=== PATIENT | male | born 1950 | race Caucasian/White ===

== ENCOUNTER 2020-09-04 08:12 | Outpatient (REF) | payer MEDICARE, SELFPAY ==
[2020-09-04 08:41] LABS: Hematocrit 41.1 % (42-52); Hemoglobin 13.8 g/dl (14.0-18.0); Mean Corpuscular HGB Conc 33.6 g/dl (31.0-36.0); Mean Corpuscular Hemoglobin 30.2 pg (27.0-33.0); Mean Corpuscular Volume 89.9 fL (80-98); Mean Platelet Volume 10.4 fL (9.4-12.4); Platelet Count 230 X10*3/uL (160-400); Red Blood Count 4.57 X10*6/uL (4.60-5.80); Red Cell Distribution Width 12.4 % (11.0-16.0); White Blood Count 7.4 X10*3/uL (4.8-10.8)
[2020-09-04 09:04] LABS: Alanine Aminotransferase 11 U/L (0-40); Alkaline Phosphatase 82 U/L (39-117); Anion Gap 14 (12-20); Aspartate Amino Transferase 14 U/L (5-37); Blood Urea Nitrogen 16 mg/dL (9-16); Calcium 9.4 mg/dL (8.4-10.2); Carbon Dioxide 27 mmol/L (22-29); Chloride 104 mmol/L (96-108); Estimated Glomerular Filt Rate > 60; Glucose Random 97 mg/dL (60-115); Potassium 4.5 mmol/L (3.3-5.1); Sodium 140 mmol/L (135-145); Total Protein 6.8 g/dL (6.5-8.0)
== END 2020-09-04 08:13 | disposition home or self-care (01) ==
LOC: HO.MMNH1L 08:12
PROVIDERS: Visit Provider Family Medicine
DX: I10 Essential (primary) hypertension (principal)
CPT/HCPCS: 36415; 80053; 85027

== ENCOUNTER 2020-09-07 06:41 | Outpatient (REF) | payer OTHER, SELFPAY ==
[2020-09-07 07:06] LABS: Hemoglobin 13.9 g/dl (14.0-18.0); Mean Corpuscular HGB Conc 33.1 g/dl (31.0-36.0); Mean Corpuscular Hemoglobin 30.2 pg (27.0-33.0); Mean Corpuscular Volume 91.1 fL (80-98); Mean Platelet Volume 10.6 fL (9.4-12.4); Platelet Count 261 X10*3/uL (160-400); Red Blood Count 4.61 X10*6/uL (4.60-5.80); Red Cell Distribution Width 12.5 % (11.0-16.0); White Blood Count 7.5 X10*3/uL (4.8-10.8)
[2020-09-07 07:28] LABS: Anion Gap 13 (12-20); Blood Urea Nitrogen 33 mg/dL (9-16); Calcium 9.2 mg/dL (8.4-10.2); Carbon Dioxide 29 mmol/L (22-29); Chloride 104 mmol/L (96-108); Estimated Glomerular Filt Rate > 60; Glucose Random 92 mg/dL (60-115); Potassium 4.6 mmol/L (3.3-5.1); Sodium 141 mmol/L (135-145)
== END 2020-09-07 06:42 | disposition home or self-care (01) ==
LOC: HO.MMNH1L 06:41
PROVIDERS: Visit Provider Family Medicine
DX: I10 Essential (primary) hypertension (principal)
CPT/HCPCS: 36415; 80048; 85027

== ENCOUNTER 2020-09-14 00:39 | Outpatient (REF) | payer OTHER, MEDICARE, SELFPAY ==
[2020-09-14 07:48] LABS: Hematocrit 41.2 % (42-52); Hemoglobin 13.5 g/dl (14.0-18.0); Mean Corpuscular HGB Conc 32.8 g/dl (31.0-36.0); Mean Corpuscular Hemoglobin 30.1 pg (27.0-33.0); Mean Platelet Volume 11.1 fL (9.4-12.4); Platelet Count 264 X10*3/uL (160-400); Red Blood Count 4.48 X10*6/uL (4.60-5.80); Red Cell Distribution Width 12.7 % (11.0-16.0); White Blood Count 7.2 X10*3/uL (4.8-10.8)
[2020-09-14 08:04] LABS: Anion Gap 16 (12-20); Blood Urea Nitrogen 36 mg/dL (9-16); Calcium 8.9 mg/dL (8.4-10.2); Carbon Dioxide 27 mmol/L (22-29); Chloride 104 mmol/L (96-108); Estimated Glomerular Filt Rate > 60; Glucose Random 79 mg/dL (60-115); Potassium 4.5 mmol/L (3.3-5.1); Sodium 142 mmol/L (135-145)
== END 2020-09-14 00:40 | disposition home or self-care (01) ==
LOC: HO.MMNH1L 00:39
PROVIDERS: Visit Provider Family Medicine
DX: I10 Essential (primary) hypertension (principal)
CPT/HCPCS: 36415; 80048; 85027

== ENCOUNTER 2020-09-21 10:25 | Outpatient (REF) | payer MEDICARE, SELFPAY ==
[2020-09-21 08:01] LABS: Hemoglobin 13.2 g/dl (14.0-18.0); Mean Corpuscular Hemoglobin 30.1 pg (27.0-33.0); Mean Corpuscular Volume 91.3 fL (80-98); Mean Platelet Volume 11.3 fL (9.4-12.4); Platelet Count 248 X10*3/uL (160-400); Red Blood Count 4.38 X10*6/uL (4.60-5.80); Red Cell Distribution Width 12.4 % (11.0-16.0); White Blood Count 8.3 X10*3/uL (4.8-10.8)
[2020-09-21 08:32] LABS: Anion Gap 16 (12-20); Blood Urea Nitrogen 30 mg/dL (9-16); Carbon Dioxide 24 mmol/L (22-29); Chloride 108 mmol/L (96-108); Estimated Glomerular Filt Rate > 60; Glucose Random 70 mg/dL (60-115); Potassium 4.7 mmol/L (3.3-5.1); Sodium 143 mmol/L (135-145)
== END 2020-09-21 10:26 | disposition home or self-care (01) ==
LOC: HO.MMNH1L 10:25
PROVIDERS: Visit Provider Family Medicine
DX: I10 Essential (primary) hypertension (principal)
CPT/HCPCS: 36415; 80048; 85027

== ENCOUNTER 2020-09-28 00:31 | Outpatient (REF) | payer MEDICARE, SELFPAY ==
[2020-09-28 08:08] LABS: Hematocrit 38.9 % (42-52); Hemoglobin 12.7 g/dl (14.0-18.0); Mean Corpuscular HGB Conc 32.6 g/dl (31.0-36.0); Mean Corpuscular Hemoglobin 29.7 pg (27.0-33.0); Mean Corpuscular Volume 91.1 fL (80-98); Mean Platelet Volume 11.3 fL (9.4-12.4); Platelet Count 204 X10*3/uL (160-400); Red Blood Count 4.27 X10*6/uL (4.60-5.80); Red Cell Distribution Width 12.6 % (11.0-16.0); White Blood Count 8.2 X10*3/uL (4.8-10.8)
[2020-09-28 08:37] LABS: Anion Gap 14 (12-20); Blood Urea Nitrogen 31 mg/dL (9-16); Carbon Dioxide 24 mmol/L (22-29); Chloride 111 mmol/L (96-108); Estimated Glomerular Filt Rate > 60; Glucose Random 82 mg/dL (60-115); Potassium 4.7 mmol/L (3.3-5.1); Sodium 144 mmol/L (135-145)
== END 2020-09-28 00:32 | disposition home or self-care (01) ==
LOC: HO.MMNH1L 00:31
PROVIDERS: Visit Provider Family Medicine
DX: I10 Essential (primary) hypertension (principal)
CPT/HCPCS: 36415; 80048; 85027

== ENCOUNTER 2020-10-05 01:05 | Outpatient (REF) | payer MEDICARE, SELFPAY | END 2020-10-05 01:06 | disposition home or self-care (01) | LOC: HO.MMNH1L 01:05 | PROVIDERS: Visit Provider Family Medicine | DX: Z13.89 Encounter for screening for other disorder (principal) ==

== ENCOUNTER 2020-10-14 08:18 | Outpatient (REF) | payer MEDICARE, SELFPAY ==
[2020-10-14 09:10] LABS: Hematocrit 36.7 % (42-52); Mean Corpuscular HGB Conc 32.7 g/dl (31.0-36.0); Mean Corpuscular Hemoglobin 29.6 pg (27.0-33.0); Mean Corpuscular Volume 90.6 fL (80-98); Mean Platelet Volume 10.8 fL (9.4-12.4); Platelet Count 271 X10*3/uL (160-400); Red Blood Count 4.05 X10*6/uL (4.60-5.80); Red Cell Distribution Width 12.8 % (11.0-16.0); White Blood Count 8.1 X10*3/uL (4.8-10.8)
[2020-10-14 09:32] LABS: Alanine Aminotransferase 48 U/L (0-40); Albumin Level 3.2 g/dL (3.5-5.0); Alkaline Phosphatase 123 U/L (39-117); Anion Gap 13 (12-20); Aspartate Amino Transferase 33 U/L (5-37); Bilirubin Total 0.7 mg/dL (0.0-1.0); Blood Urea Nitrogen 12 mg/dL (9-16); Calcium 8.6 mg/dL (8.4-10.2); Carbon Dioxide 30 mmol/L (22-29); Chloride 104 mmol/L (96-108); Estimated Glomerular Filt Rate > 60; Glucose Random 106 mg/dL (60-115); Potassium 4.1 mmol/L (3.3-5.1); Sodium 143 mmol/L (135-145); Total Protein 5.9 g/dL (6.5-8.0)
== END 2020-10-14 08:19 | disposition home or self-care (01) ==
LOC: HO.MMNH1L 08:18
PROVIDERS: Visit Provider Family Medicine
DX: A41.9 Sepsis, unspecified organism (principal); L89.159 Pressure ulcer of sacral region, unspecified stage
CPT/HCPCS: 36415; 80053; 85027

== ENCOUNTER 2020-10-19 00:51 | Outpatient (REF) | payer MEDICARE, SELFPAY ==
[2020-10-19 07:46] LABS: Hemoglobin 12.5 g/dl (14.0-18.0); Mean Corpuscular HGB Conc 32.9 g/dl (31.0-36.0); Mean Corpuscular Volume 91.1 fL (80-98); Mean Platelet Volume 10.4 fL (9.4-12.4); Platelet Count 333 X10*3/uL (160-400); Red Blood Count 4.17 X10*6/uL (4.60-5.80); Red Cell Distribution Width 13.2 % (11.0-16.0); White Blood Count 12.5 X10*3/uL (4.8-10.8)
[2020-10-19 08:27] LABS: Anion Gap 12 (12-20); Blood Urea Nitrogen 22 mg/dL (9-16); Calcium 8.5 mg/dL (8.4-10.2); Carbon Dioxide 29 mmol/L (22-29); Chloride 101 mmol/L (96-108); Estimated Glomerular Filt Rate > 60; Glucose Random 72 mg/dL (60-115); Potassium 4.1 mmol/L (3.3-5.1); Sodium 138 mmol/L (135-145)
== END 2020-10-19 00:52 | disposition home or self-care (01) ==
LOC: HO.MMNH1L 00:51
PROVIDERS: Visit Provider Family Medicine
DX: A41.9 Sepsis, unspecified organism (principal); L89.159 Pressure ulcer of sacral region, unspecified stage
CPT/HCPCS: 36415; 80048; 85027

== ENCOUNTER 2020-10-26 00:27 | Outpatient (REF) | payer MEDICARE, SELFPAY ==
[2020-10-26 07:05] LABS: Hematocrit 38.5 % (42-52); Hemoglobin 12.5 g/dl (14.0-18.0); Mean Corpuscular HGB Conc 32.5 g/dl (31.0-36.0); Mean Corpuscular Hemoglobin 29.9 pg (27.0-33.0); Mean Corpuscular Volume 92.1 fL (80-98); Mean Platelet Volume 10.7 fL (9.4-12.4); Platelet Count 318 X10*3/uL (160-400); Red Blood Count 4.18 X10*6/uL (4.60-5.80); Red Cell Distribution Width 13.9 % (11.0-16.0); White Blood Count 10.7 X10*3/uL (4.8-10.8)
[2020-10-26 07:47] LABS: Blood Urea Nitrogen 60 mg/dL (9-16); Estimated Glomerular Filt Rate 33; Glucose Random 72 mg/dL (60-115)
[2020-10-26 08:01] LABS: Anion Gap 21 (12-20); Carbon Dioxide 21 mmol/L (22-29); Chloride 104 mmol/L (96-108); Potassium 5.5 mmol/L (3.3-5.1); Sodium 140 mmol/L (135-145)
== END 2020-10-26 00:28 | disposition home or self-care (01) ==
LOC: HO.MMNH1L 00:27
PROVIDERS: Visit Provider Family Medicine
DX: L89.159 Pressure ulcer of sacral region, unspecified stage (principal); A41.9 Sepsis, unspecified organism
CPT/HCPCS: 36415; 80048; 85027

== ENCOUNTER 2020-11-02 07:04 | Outpatient (REF) | payer MEDICARE, SELFPAY ==
[2020-11-02 07:09] LABS: Hematocrit 40.6 % (42-52); Hemoglobin 13.1 g/dl (14.0-18.0); Mean Corpuscular HGB Conc 32.3 g/dl (31.0-36.0); Mean Corpuscular Hemoglobin 29.5 pg (27.0-33.0); Mean Corpuscular Volume 91.4 fL (80-98); Mean Platelet Volume 10.7 fL (9.4-12.4); Platelet Count 290 X10*3/uL (160-400); Red Blood Count 4.44 X10*6/uL (4.60-5.80)
[2020-11-02 07:43] LABS: Anion Gap 15 (12-20); Blood Urea Nitrogen 73 mg/dL (9-16); Calcium 9.7 mg/dL (8.4-10.2); Carbon Dioxide 25 mmol/L (22-29); Chloride 110 mmol/L (96-108); Estimated Glomerular Filt Rate 33; Glucose Random 107 mg/dL (60-115); Potassium 5.8 mmol/L (3.3-5.1); Sodium 144 mmol/L (135-145)
== END 2020-11-02 07:05 | disposition home or self-care (01) ==
LOC: HO.MMNH1L 07:04
PROVIDERS: Visit Provider Family Medicine
DX: A41.9 Sepsis, unspecified organism (principal); L89.159 Pressure ulcer of sacral region, unspecified stage
CPT/HCPCS: 36415; 80048; 85027; 87040

== ENCOUNTER 2020-11-09 00:29 | Outpatient (REF) | payer MEDICARE, SELFPAY | END 2020-11-09 00:30 | disposition home or self-care (01) | LOC: HO.MMNH1L 00:29 | PROVIDERS: Visit Provider Family Medicine | DX: Z13.89 Encounter for screening for other disorder (principal) ==

== ENCOUNTER 2020-11-16 00:11 | Outpatient (REF) | payer MEDICARE, SELFPAY ==
[2020-11-16 07:04] LABS: Anion Gap 14 (12-20); Blood Urea Nitrogen 13 mg/dL (9-16); Calcium 8.7 mg/dL (8.4-10.2); Carbon Dioxide 26 mmol/L (22-29); Chloride 106 mmol/L (96-108); Estimated Glomerular Filt Rate > 60; Glucose Random 99 mg/dL (60-115); Potassium 4.6 mmol/L (3.3-5.1); Sodium 141 mmol/L (135-145)
[2020-11-16 07:05] LABS: Mean Corpuscular HGB Conc 32.3 g/dl (31.0-36.0); Mean Corpuscular Hemoglobin 29.8 pg (27.0-33.0); Mean Corpuscular Volume 92.3 fL (80-98); Mean Platelet Volume 9.8 fL (9.4-12.4); Platelet Count 410 X10*3/uL (160-400); Red Blood Count 3.36 X10*6/uL (4.60-5.80); Red Cell Distribution Width 15.1 % (11.0-16.0); White Blood Count 8.1 X10*3/uL (4.8-10.8)
== END 2020-11-16 00:12 | disposition home or self-care (01) ==
LOC: HO.MMNH1L 00:11
PROVIDERS: Visit Provider Family Medicine
DX: A41.9 Sepsis, unspecified organism (principal); L89.159 Pressure ulcer of sacral region, unspecified stage
CPT/HCPCS: 36415; 80048; 85027

== ENCOUNTER 2020-11-23 | Outpatient (REF) | payer MEDICARE, SELFPAY ==
[2020-11-23 07:33] LABS: Hematocrit 31.7 % (42-52); Hemoglobin 10.3 g/dl (14.0-18.0); Mean Corpuscular HGB Conc 32.5 g/dl (31.0-36.0); Mean Corpuscular Hemoglobin 30.4 pg (27.0-33.0); Mean Corpuscular Volume 93.5 fL (80-98); Mean Platelet Volume 10.2 fL (9.4-12.4); Platelet Count 321 X10*3/uL (160-400); Red Blood Count 3.39 X10*6/uL (4.60-5.80); White Blood Count 8.5 X10*3/uL (4.8-10.8)
[2020-11-23 07:58] LABS: Anion Gap 14 (12-20); Blood Urea Nitrogen 13 mg/dL (9-16); Calcium 8.8 mg/dL (8.4-10.2); Carbon Dioxide 27 mmol/L (22-29); Chloride 104 mmol/L (96-108); Estimated Glomerular Filt Rate > 60; Glucose Random 102 mg/dL (60-115); Potassium 4.6 mmol/L (3.3-5.1); Sodium 140 mmol/L (135-145)
== END 2020-11-23 00:01 | disposition home or self-care (01) ==
LOC: HO.MMNH1L
PROVIDERS: Visit Provider Family Medicine
DX: A41.9 Sepsis, unspecified organism (principal); L89.159 Pressure ulcer of sacral region, unspecified stage
CPT/HCPCS: 36415; 80048; 85027

== ENCOUNTER 2020-11-30 00:47 | Outpatient (REF) | payer MEDICARE, SELFPAY ==
[2020-11-30 06:15] LABS: Hematocrit 30.6 % (42-52); Hemoglobin 9.6 g/dl (14.0-18.0); Mean Corpuscular HGB Conc 31.4 g/dl (31.0-36.0); Mean Corpuscular Hemoglobin 29.8 pg (27.0-33.0); Mean Platelet Volume 10.4 fL (9.4-12.4); Platelet Count 296 X10*3/uL (160-400); Red Blood Count 3.22 X10*6/uL (4.60-5.80); Red Cell Distribution Width 15.7 % (11.0-16.0); White Blood Count 10.2 X10*3/uL (4.8-10.8)
[2020-11-30 06:43] LABS: Anion Gap 11 (12-20); Blood Urea Nitrogen 15 mg/dL (9-16); Calcium 8.5 mg/dL (8.4-10.2); Carbon Dioxide 30 mmol/L (22-29); Chloride 103 mmol/L (96-108); Estimated Glomerular Filt Rate > 60; Glucose Random 109 mg/dL (60-115); Potassium 4.3 mmol/L (3.3-5.1); Sodium 140 mmol/L (135-145)
== END 2020-11-30 00:48 | disposition home or self-care (01) ==
LOC: HO.MMNH1L 00:47
PROVIDERS: Visit Provider Family Medicine
DX: A41.9 Sepsis, unspecified organism (principal); L89.159 Pressure ulcer of sacral region, unspecified stage
CPT/HCPCS: 36415; 80048; 85027

== ENCOUNTER 2020-12-07 08:02 | Outpatient (REF) | payer MEDICARE, SELFPAY ==
[2020-12-07 06:43] LABS: Hematocrit 32.8 % (42-52); Hemoglobin 10.7 g/dl (14.0-18.0); Mean Corpuscular HGB Conc 32.6 g/dl (31.0-36.0); Mean Corpuscular Hemoglobin 31.1 pg (27.0-33.0); Mean Corpuscular Volume 95.3 fL (80-98); Mean Platelet Volume 9.8 fL (9.4-12.4); Platelet Count 371 X10*3/uL (160-400); Red Blood Count 3.44 X10*6/uL (4.60-5.80); Red Cell Distribution Width 14.7 % (11.0-16.0); White Blood Count 8.6 X10*3/uL (4.8-10.8)
[2020-12-07 06:52] LABS: Anion Gap 13 (12-20); Blood Urea Nitrogen 12 mg/dL (9-16); Carbon Dioxide 31 mmol/L (22-29); Chloride 103 mmol/L (96-108); Estimated Glomerular Filt Rate > 60; Glucose Random 86 mg/dL (60-115); Potassium 4.5 mmol/L (3.3-5.1); Sodium 142 mmol/L (135-145)
== END 2020-12-07 08:03 | disposition home or self-care (01) ==
LOC: HO.MMNH1L 08:02
PROVIDERS: Visit Provider Family Medicine
DX: A41.9 Sepsis, unspecified organism (principal); L89.159 Pressure ulcer of sacral region, unspecified stage
CPT/HCPCS: 36415; 80048; 85027

== ENCOUNTER 2020-12-14 21:16 | Outpatient (REF) | payer MEDICARE, SELFPAY ==
[2020-12-14 06:47] LABS: Hematocrit 35.1 % (42-52); Hemoglobin 11.2 g/dl (14.0-18.0); Mean Corpuscular HGB Conc 31.9 g/dl (31.0-36.0); Mean Corpuscular Hemoglobin 30.4 pg (27.0-33.0); Mean Corpuscular Volume 95.4 fL (80-98); Mean Platelet Volume 10.2 fL (9.4-12.4); Platelet Count 342 X10*3/uL (160-400); Red Blood Count 3.68 X10*6/uL (4.60-5.80); Red Cell Distribution Width 14.3 % (11.0-16.0); White Blood Count 10.3 X10*3/uL (4.8-10.8)
[2020-12-14 07:11] LABS: Anion Gap 14 (12-20); Blood Urea Nitrogen 16 mg/dL (9-16); Calcium 9.3 mg/dL (8.4-10.2); Carbon Dioxide 28 mmol/L (22-29); Chloride 104 mmol/L (96-108); Estimated Glomerular Filt Rate > 60; Glucose Random 173 mg/dL (60-115); Potassium 4.3 mmol/L (3.3-5.1); Sodium 142 mmol/L (135-145)
== END 2020-12-14 21:17 | disposition home or self-care (01) ==
LOC: HO.MMNH1L 21:16
PROVIDERS: Visit Provider Family Medicine
DX: A41.9 Sepsis, unspecified organism (principal); L89.159 Pressure ulcer of sacral region, unspecified stage
CPT/HCPCS: 36415; 80048; 85027

== ENCOUNTER 2020-12-21 00:15 | Outpatient (REF) | payer MEDICARE, SELFPAY ==
[2020-12-21 07:06] LABS: Hematocrit 34.4 % (42-52); Mean Corpuscular Hemoglobin 30.8 pg (27.0-33.0); Mean Corpuscular Volume 96.4 fL (80-98); Platelet Count 282 X10*3/uL (160-400); Red Blood Count 3.57 X10*6/uL (4.60-5.80); Red Cell Distribution Width 13.4 % (11.0-16.0)
[2020-12-21 07:38] LABS: Anion Gap 15 (12-20); Blood Urea Nitrogen 12 mg/dL (9-16); Calcium 9.1 mg/dL (8.4-10.2); Carbon Dioxide 30 mmol/L (22-29); Chloride 101 mmol/L (96-108); Estimated Glomerular Filt Rate > 60; Glucose Random 83 mg/dL (60-115); Potassium 4.7 mmol/L (3.3-5.1); Sodium 141 mmol/L (135-145)
== END 2020-12-21 00:16 | disposition home or self-care (01) ==
LOC: HO.MMNH1L 00:15
PROVIDERS: Visit Provider Family Medicine
DX: A41.9 Sepsis, unspecified organism (principal); L89.159 Pressure ulcer of sacral region, unspecified stage
CPT/HCPCS: 36415; 80048; 85027

== ENCOUNTER 2020-12-28 00:26 | Outpatient (REF) | payer MEDICARE, SELFPAY ==
[2020-12-28 06:45] LABS: Hematocrit 33.1 % (42-52); Hemoglobin 10.6 g/dl (14.0-18.0); Mean Corpuscular Hemoglobin 30.5 pg (27.0-33.0); Mean Corpuscular Volume 95.1 fL (80-98); Mean Platelet Volume 9.9 fL (9.4-12.4); Platelet Count 327 X10*3/uL (160-400); Red Blood Count 3.48 X10*6/uL (4.60-5.80); Red Cell Distribution Width 13.2 % (11.0-16.0); White Blood Count 10.3 X10*3/uL (4.8-10.8)
[2020-12-28 07:12] LABS: Anion Gap 16 (12-20); Blood Urea Nitrogen 14 mg/dL (9-16); Calcium 8.7 mg/dL (8.4-10.2); Carbon Dioxide 27 mmol/L (22-29); Chloride 101 mmol/L (96-108); Estimated Glomerular Filt Rate > 60; Glucose Random 109 mg/dL (60-115); Potassium 4.1 mmol/L (3.3-5.1); Sodium 140 mmol/L (135-145)
== END 2020-12-28 00:27 | disposition home or self-care (01) ==
LOC: HO.MMNH1L 00:26
PROVIDERS: Visit Provider Family Medicine
DX: A41.9 Sepsis, unspecified organism (principal); L89.159 Pressure ulcer of sacral region, unspecified stage
CPT/HCPCS: 36415; 80048; 85027

== ENCOUNTER 2020-12-29 14:02 | Outpatient (REF) | payer MEDICARE, SELFPAY | END 2020-12-29 14:03 | disposition home or self-care (01) | LOC: HO.MMNH1L 14:02 | PROVIDERS: Visit Provider Family Medicine | DX: S30.91XD Unspecified superficial injury of lower back and pelvis, subsequent encounter (principal) | CPT/HCPCS: 88307; 88311 ==

== ENCOUNTER 2020-12-30 06:47 | Outpatient (REF) | payer MEDICARE, SELFPAY ==
[2020-12-30 07:10] LABS: Hematocrit 32.1 % (42-52); Hemoglobin 10.3 g/dl (14.0-18.0); Mean Corpuscular HGB Conc 32.1 g/dl (31.0-36.0); Mean Corpuscular Hemoglobin 30.6 pg (27.0-33.0); Mean Corpuscular Volume 95.3 fL (80-98); Mean Platelet Volume 9.9 fL (9.4-12.4); Platelet Count 332 X10*3/uL (160-400); Red Blood Count 3.37 X10*6/uL (4.60-5.80); Red Cell Distribution Width 12.9 % (11.0-16.0); White Blood Count 8.3 X10*3/uL (4.8-10.8)
[2020-12-30 07:42] LABS: Anion Gap 10 (12-20); Blood Urea Nitrogen 13 mg/dL (9-16); C Reactive Protein 5.13 mg/dL (< or = 0.50); Carbon Dioxide 31 mmol/L (22-29); Chloride 104 mmol/L (96-108); Estimated Glomerular Filt Rate > 60; Glucose Random 106 mg/dL (60-115); Potassium 4.3 mmol/L (3.3-5.1); Sodium 141 mmol/L (135-145)
[2020-12-30 08:39] LABS: Erythrocyte Sedimentation Rate 55 MM/HR (0-15)
== END 2020-12-30 06:48 | disposition home or self-care (01) ==
LOC: HO.MMNH1L 06:47
PROVIDERS: Visit Provider Family Medicine
DX: E11.9 Type 2 diabetes mellitus without complications (principal); I10 Essential (primary) hypertension
CPT/HCPCS: 36415; 80048; 85027; 85652; 86140

== ENCOUNTER 2020-12-31 05:00 | Outpatient (REF) | payer MEDICARE, OTHER, SELFPAY ==
[2020-12-31 08:34] LABS: Vancomycin Trough 8.8 mcg/mL (10.0-20.0)
== END 2020-12-31 05:01 | disposition home or self-care (01) ==
LOC: HO.MMNH1L 05:00
PROVIDERS: Visit Provider Family Medicine
DX: L89.159 Pressure ulcer of sacral region, unspecified stage (principal); Z79.899 Other long term (current) drug therapy
CPT/HCPCS: 36415; 80202

== ENCOUNTER 2021-01-02 06:51 | Outpatient (REF) | payer MEDICARE, OTHER, SELFPAY ==
[2021-01-02 07:31] LABS: Vancomycin Trough 17.8 mcg/mL (10.0-20.0)
== END 2021-01-02 06:52 | disposition home or self-care (01) ==
LOC: HO.MMNH3L 06:51
PROVIDERS: Visit Provider Family Medicine
DX: I10 Essential (primary) hypertension (principal); E11.9 Type 2 diabetes mellitus without complications
CPT/HCPCS: 36415; 80202

== ENCOUNTER 2021-01-04 05:00 | Outpatient (REF) | payer MEDICARE, OTHER, SELFPAY ==
[2021-01-04 07:08] LABS: Hematocrit 34.2 % (42-52); Hemoglobin 11.2 g/dl (14.0-18.0); Mean Corpuscular HGB Conc 32.7 g/dl (31.0-36.0); Mean Corpuscular Hemoglobin 30.8 pg (27.0-33.0); Mean Platelet Volume 9.5 fL (9.4-12.4); Platelet Count 350 X10*3/uL (160-400); Red Blood Count 3.64 X10*6/uL (4.60-5.80); Red Cell Distribution Width 12.6 % (11.0-16.0); White Blood Count 7.5 X10*3/uL (4.8-10.8)
[2021-01-04 07:34] LABS: Anion Gap 13 (12-20); Blood Urea Nitrogen 14 mg/dL (9-16); Calcium 9.2 mg/dL (8.4-10.2); Carbon Dioxide 29 mmol/L (22-29); Chloride 105 mmol/L (96-108); Estimated Glomerular Filt Rate > 60; Glucose Random 102 mg/dL (60-115); Potassium 4.7 mmol/L (3.3-5.1); Sodium 142 mmol/L (135-145)
[2021-01-04 07:59] LABS: Vancomycin Trough 25.6 mcg/mL (10.0-20.0)
== END 2021-01-04 05:01 | disposition home or self-care (01) ==
LOC: HO.MMNH1L 05:00
PROVIDERS: Visit Provider Family Medicine
DX: A41.9 Sepsis, unspecified organism (principal); L89.159 Pressure ulcer of sacral region, unspecified stage
CPT/HCPCS: 36415; 80048; 80202; 85027

== ENCOUNTER 2021-01-08 05:51 | Outpatient (REF) | payer OTHER, SELFPAY ==
[2021-01-08 06:27] LABS: Vancomycin Trough 10.4 mcg/mL (10.0-20.0)
== END 2021-01-08 05:52 | disposition home or self-care (01) ==
LOC: HO.MMNH3L 05:51
PROVIDERS: Visit Provider Family Medicine
DX: A41.9 Sepsis, unspecified organism (principal); L89.612 Pressure ulcer of right heel, stage 2; Z79.899 Other long term (current) drug therapy
CPT/HCPCS: 36415; 80202

== ENCOUNTER 2021-01-11 00:58 | Outpatient (REF) | payer MEDICARE, OTHER, SELFPAY ==
[2021-01-11 07:00] LABS: Hematocrit 34.1 % (42-52); Hemoglobin 11.1 g/dl (14.0-18.0); Mean Corpuscular HGB Conc 32.6 g/dl (31.0-36.0); Mean Corpuscular Hemoglobin 30.7 pg (27.0-33.0); Mean Corpuscular Volume 94.2 fL (80-98); Platelet Count 277 X10*3/uL (160-400); Red Blood Count 3.62 X10*6/uL (4.60-5.80); Red Cell Distribution Width 12.9 % (11.0-16.0); White Blood Count 6.2 X10*3/uL (4.8-10.8)
[2021-01-11 07:27] LABS: Anion Gap 13 (12-20); Blood Urea Nitrogen 18 mg/dL (9-16); Carbon Dioxide 27 mmol/L (22-29); Chloride 105 mmol/L (96-108); Estimated Glomerular Filt Rate > 60; Glucose Random 111 mg/dL (60-115); Sodium 141 mmol/L (135-145)
== END 2021-01-11 00:59 | disposition home or self-care (01) ==
LOC: HO.MMNH1L 00:58
PROVIDERS: Visit Provider Family Medicine
DX: A41.9 Sepsis, unspecified organism (principal); L89.159 Pressure ulcer of sacral region, unspecified stage
CPT/HCPCS: 36415; 80048; 85027

== ENCOUNTER 2021-01-11 01:02 | Outpatient (REF) | payer MEDICARE, OTHER, SELFPAY ==
[2021-01-11 08:01] LABS: Vancomycin Trough 19.2 mcg/mL (10.0-20.0)
== END 2021-01-11 01:03 | disposition home or self-care (01) ==
LOC: HO.MMNH3L 01:02
PROVIDERS: Visit Provider Family Medicine
DX: A41.9 Sepsis, unspecified organism (principal); L89.612 Pressure ulcer of right heel, stage 2; L89.154 Pressure ulcer of sacral region, stage 4; Z79.899 Other long term (current) drug therapy
CPT/HCPCS: 36415; 80202

== ENCOUNTER 2021-01-14 05:28 | Outpatient (REF) | payer MEDICARE, OTHER, SELFPAY ==
[2021-01-14 06:26] LABS: Vancomycin Trough 16.3 mcg/mL (10.0-20.0)
== END 2021-01-14 05:29 | disposition home or self-care (01) ==
LOC: HO.MMNH3L 05:28
PROVIDERS: Visit Provider Family Medicine
DX: A41.9 Sepsis, unspecified organism (principal); L89.154 Pressure ulcer of sacral region, stage 4; Z79.899 Other long term (current) drug therapy
CPT/HCPCS: 36415; 80202

== ENCOUNTER 2021-01-17 06:43 | Outpatient (REF) | payer MEDICARE, OTHER, SELFPAY ==
[2021-01-17 07:18] LABS: Vancomycin Trough 15.6 mcg/mL (10.0-20.0)
== END 2021-01-17 06:44 | disposition home or self-care (01) ==
LOC: HO.MMNH3L 06:43
PROVIDERS: Visit Provider Family Medicine
DX: A41.9 Sepsis, unspecified organism (principal); Z79.899 Other long term (current) drug therapy
CPT/HCPCS: 36415; 80202

== ENCOUNTER 2021-01-18 06:01 | Outpatient (REF) | payer MEDICARE, OTHER, SELFPAY ==
[2021-01-18 06:43] LABS: Vancomycin Trough 8.4 mcg/mL (10.0-20.0)
== END 2021-01-18 06:02 | disposition home or self-care (01) ==
LOC: HO.MMNH3L 06:01
PROVIDERS: Visit Provider Family Medicine
DX: A41.9 Sepsis, unspecified organism (principal); L08.9 Local infection of the skin and subcutaneous tissue, unspecified; Z79.899 Other long term (current) drug therapy
CPT/HCPCS: 36415; 80202

== ENCOUNTER 2021-01-19 21:11 | Outpatient (REF) | payer MEDICARE, OTHER, SELFPAY ==
[2021-01-19 07:12] LABS: Hematocrit 33.4 % (42-52); Hemoglobin 11.2 g/dl (14.0-18.0); Mean Corpuscular HGB Conc 33.5 g/dl (31.0-36.0); Mean Corpuscular Hemoglobin 30.9 pg (27.0-33.0); Mean Platelet Volume 10.6 fL (9.4-12.4); Platelet Count 232 X10*3/uL (160-400); Red Blood Count 3.63 X10*6/uL (4.60-5.80); Red Cell Distribution Width 12.8 % (11.0-16.0); White Blood Count 7.8 X10*3/uL (4.8-10.8)
[2021-01-19 08:06] LABS: Anion Gap 13 (12-20); Blood Urea Nitrogen 17 mg/dL (9-16); Carbon Dioxide 26 mmol/L (22-29); Chloride 108 mmol/L (96-108); Estimated Glomerular Filt Rate > 60; Glucose Random 83 mg/dL (60-115); Potassium 3.9 mmol/L (3.3-5.1); Sodium 143 mmol/L (135-145)
== END 2021-01-19 21:12 | disposition home or self-care (01) ==
LOC: HO.MMNH1L 21:11
PROVIDERS: Visit Provider Family Medicine
DX: A41.9 Sepsis, unspecified organism (principal); L89.159 Pressure ulcer of sacral region, unspecified stage
CPT/HCPCS: 36415; 80048; 85027

== ENCOUNTER 2021-01-21 06:45 | Outpatient (REF) | payer MEDICARE, OTHER, SELFPAY ==
[2021-01-21 07:12] LABS: Vancomycin Trough 10.2 mcg/mL (10.0-20.0)
== END 2021-01-21 06:46 | disposition home or self-care (01) ==
LOC: HO.MMNH3L 06:45
PROVIDERS: Visit Provider Family Medicine
DX: A41.9 Sepsis, unspecified organism (principal); L08.9 Local infection of the skin and subcutaneous tissue, unspecified; L89.154 Pressure ulcer of sacral region, stage 4
CPT/HCPCS: 36415; 80202

== ENCOUNTER 2021-01-24 03:15 | Outpatient (REF) | payer MEDICARE, OTHER, SELFPAY ==
[2021-01-24 06:43] LABS: Vancomycin Trough 15.3 mcg/mL (10.0-20.0)
== END 2021-01-24 03:16 | disposition home or self-care (01) ==
LOC: HO.MMNH3L 03:15
PROVIDERS: Visit Provider Family Medicine
DX: M86.9 Osteomyelitis, unspecified (principal)
CPT/HCPCS: 36415; 80202

== ENCOUNTER 2021-01-25 | Outpatient (REF) | payer MEDICARE, OTHER, SELFPAY ==
[2021-01-25 06:29] LABS: Hematocrit 31.4 % (42-52); Hemoglobin 10.3 g/dl (14.0-18.0); Mean Corpuscular HGB Conc 32.8 g/dl (31.0-36.0); Mean Corpuscular Hemoglobin 30.5 pg (27.0-33.0); Mean Corpuscular Volume 92.9 fL (80-98); Mean Platelet Volume 10.4 fL (9.4-12.4); Platelet Count 207 X10*3/uL (160-400); Red Blood Count 3.38 X10*6/uL (4.60-5.80); Red Cell Distribution Width 12.8 % (11.0-16.0); White Blood Count 7.3 X10*3/uL (4.8-10.8)
[2021-01-25 07:03] LABS: Anion Gap 13 (12-20); Blood Urea Nitrogen 20 mg/dL (9-16); Calcium 8.9 mg/dL (8.4-10.2); Carbon Dioxide 25 mmol/L (22-29); Chloride 108 mmol/L (96-108); Estimated Glomerular Filt Rate > 60; Glucose Random 129 mg/dL (60-115); Potassium 4.5 mmol/L (3.3-5.1); Sodium 141 mmol/L (135-145)
== END 2021-01-25 00:01 | disposition home or self-care (01) ==
LOC: HO.MMNH1L
PROVIDERS: Visit Provider Family Medicine
DX: A41.9 Sepsis, unspecified organism (principal); L89.159 Pressure ulcer of sacral region, unspecified stage
CPT/HCPCS: 36415; 80048; 85027

== ENCOUNTER 2021-01-27 06:39 | Outpatient (REF) | payer MEDICARE, OTHER, SELFPAY ==
[2021-01-27 07:19] LABS: C Reactive Protein 0.81 mg/dL (< or = 0.50)
[2021-01-27 07:28] LABS: Vancomycin Trough 14.8 mcg/mL (10.0-20.0)
[2021-01-27 09:05] LABS: Erythrocyte Sedimentation Rate 19 MM/HR (0-15)
== END 2021-01-27 06:40 | disposition home or self-care (01) ==
LOC: HO.MMNH3L 06:39
PROVIDERS: Visit Provider Family Medicine
DX: A41.9 Sepsis, unspecified organism (principal)
CPT/HCPCS: 36415; 80202; 85652; 86140

== ENCOUNTER 2021-02-01 00:32 | Outpatient (REF) | payer MEDICARE, OTHER, SELFPAY ==
[2021-02-01 06:53] LABS: Hematocrit 34.9 % (42-52); Hemoglobin 11.1 g/dl (14.0-18.0); Mean Corpuscular HGB Conc 31.8 g/dl (31.0-36.0); Mean Corpuscular Hemoglobin 30.1 pg (27.0-33.0); Mean Corpuscular Volume 94.6 fL (80-98); Mean Platelet Volume 10.2 fL (9.4-12.4); Platelet Count 252 X10*3/uL (160-400); Red Blood Count 3.69 X10*6/uL (4.60-5.80); Red Cell Distribution Width 12.6 % (11.0-16.0); White Blood Count 5.6 X10*3/uL (4.8-10.8)
[2021-02-01 07:08] LABS: Anion Gap 13 (12-20); Blood Urea Nitrogen 21 mg/dL (9-16); Carbon Dioxide 28 mmol/L (22-29); Chloride 106 mmol/L (96-108); Estimated Glomerular Filt Rate > 60; Glucose Random 117 mg/dL (60-115); Potassium 5.2 mmol/L (3.3-5.1); Sodium 142 mmol/L (135-145)
== END 2021-02-01 00:33 | disposition home or self-care (01) ==
LOC: HO.MMNH3L 00:32
PROVIDERS: Visit Provider Family Medicine
DX: A41.9 Sepsis, unspecified organism (principal); L89.159 Pressure ulcer of sacral region, unspecified stage
CPT/HCPCS: 36415; 80048; 85027

== ENCOUNTER 2021-02-08 00:17 | Outpatient (REF) | payer MEDICARE, OTHER, SELFPAY ==
[2021-02-08 07:09] LABS: Hematocrit 37.5 % (42-52); Mean Corpuscular Hemoglobin 29.7 pg (27.0-33.0); Mean Corpuscular Volume 92.8 fL (80-98); Mean Platelet Volume 10.3 fL (9.4-12.4); Platelet Count 276 X10*3/uL (160-400); Red Blood Count 4.04 X10*6/uL (4.60-5.80); Red Cell Distribution Width 12.5 % (11.0-16.0); White Blood Count 5.4 X10*3/uL (4.8-10.8)
[2021-02-08 07:41] LABS: Anion Gap 13 (12-20); Blood Urea Nitrogen 22 mg/dL (9-16); Calcium 9.4 mg/dL (8.4-10.2); Carbon Dioxide 26 mmol/L (22-29); Chloride 106 mmol/L (96-108); Estimated Glomerular Filt Rate > 60; Glucose Random 123 mg/dL (60-115); Potassium 5.1 mmol/L (3.3-5.1); Sodium 140 mmol/L (135-145)
== END 2021-02-08 00:18 | disposition home or self-care (01) ==
LOC: HO.MMNH3L 00:17
PROVIDERS: Visit Provider Family Medicine
DX: A41.9 Sepsis, unspecified organism (principal); L89.159 Pressure ulcer of sacral region, unspecified stage
CPT/HCPCS: 36415; 80048; 85027

== ENCOUNTER 2021-02-15 01:10 | Outpatient (REF) | payer MEDICARE, OTHER, SELFPAY ==
[2021-02-15 07:05] LABS: Hematocrit 36.9 % (42-52); Hemoglobin 12.1 g/dl (14.0-18.0); Mean Corpuscular HGB Conc 32.8 g/dl (31.0-36.0); Mean Corpuscular Hemoglobin 30.2 pg (27.0-33.0); Mean Platelet Volume 10.3 fL (9.4-12.4); Platelet Count 244 X10*3/uL (160-400); Red Blood Count 4.01 X10*6/uL (4.60-5.80); Red Cell Distribution Width 12.5 % (11.0-16.0); White Blood Count 5.4 X10*3/uL (4.8-10.8)
[2021-02-15 07:33] LABS: Anion Gap 13 (12-20); Blood Urea Nitrogen 17 mg/dL (9-16); Calcium 9.3 mg/dL (8.4-10.2); Carbon Dioxide 25 mmol/L (22-29); Chloride 108 mmol/L (96-108); Estimated Glomerular Filt Rate > 60; Glucose Random 102 mg/dL (60-115); Potassium 4.7 mmol/L (3.3-5.1); Sodium 141 mmol/L (135-145)
== END 2021-02-15 01:11 | disposition home or self-care (01) ==
LOC: HO.MMNH3L 01:10
PROVIDERS: Visit Provider Family Medicine
DX: A41.9 Sepsis, unspecified organism (principal); L89.159 Pressure ulcer of sacral region, unspecified stage
CPT/HCPCS: 36415; 80048; 85027

== ENCOUNTER 2021-02-23 | Outpatient (REF) | payer OTHER, MEDICAID, SELFPAY ==
[2021-02-23 06:37] LABS: Hematocrit 37.6 % (42-52); Hemoglobin 12.6 g/dl (14.0-18.0); Mean Corpuscular HGB Conc 33.5 g/dl (31.0-36.0); Mean Corpuscular Volume 92.4 fL (80-98); Platelet Count 237 X10*3/uL (160-400); Red Blood Count 4.07 X10*6/uL (4.60-5.80); Red Cell Distribution Width 12.8 % (11.0-16.0); White Blood Count 12.6 X10*3/uL (4.8-10.8)
[2021-02-23 06:53] LABS: Anion Gap 10 (12-20); Blood Urea Nitrogen 15 mg/dL (9-16); Calcium 8.8 mg/dL (8.4-10.2); Carbon Dioxide 25 mmol/L (22-29); Chloride 109 mmol/L (96-108); Estimated Glomerular Filt Rate > 60; Glucose Random 117 mg/dL (60-115); Potassium 4.2 mmol/L (3.3-5.1); Sodium 140 mmol/L (135-145)
== END 2021-02-23 00:01 | disposition home or self-care (01) ==
LOC: HO.MMNH3L
PROVIDERS: Visit Provider Family Medicine
DX: A41.9 Sepsis, unspecified organism (principal); L89.159 Pressure ulcer of sacral region, unspecified stage
CPT/HCPCS: 36415; 80048; 85027

== ENCOUNTER 2021-02-24 06:04 | Outpatient (REF) | payer MEDICARE, OTHER, SELFPAY ==
[2021-02-24 07:30] LABS: Appearance Urine CLEAR; Color Urine YELLOW; Glucose Urine UA NEG (NEG); Leukocyte Esterase Urine NEG (NEG); Nitrite Urine POS (NEG); PH 5.5 (5.0-8.0); Specific Gravity - Urine >= 1.030 (1.005-1.025); UACC Culture Trigger YES; Urine Blood NEG (NEG); Urine Ketones NEG (NEG); Urine Protein TRACE MG/DL (NEG-TRACE)
[2021-02-24 08:00] LABS: Bacteria Urine 2+ /LPF; RBC Urine 0 /HPF (0); Squamous Epithelial Cell Urine TRACE /LPF
== END 2021-02-24 06:05 | disposition home or self-care (01) ==
LOC: HO.MMNH3L 06:04
PROVIDERS: Visit Provider Family Medicine
DX: D72.829 Elevated white blood cell count, unspecified (principal)
CPT/HCPCS: 81001; 81003; 87086; 87088; 87186

== ENCOUNTER 2021-02-27 14:39 | Emergency (ER) | payer MEDICARE, MEDICAID, SELFPAY ==
--- NOTE | ~2021-02-27 | CT_ITS ---
EXAMINATION: CT ABDOMEN AND PELVIS WITH CONTRAST CLINICAL INFORMATION: Decubitus. Assess for osteomyelitis COMPARISON: None TECHNIQUE: Multidetector volumetric images were obtained from the superior aspect of the liver through the pubic symphysis following administration 85 mL of Omnipaque 350 intravenous contrast. Sagittal and coronal reformatted images were obtained on the technologist's workstation. Oral contrast: No This CT examination was performed using dose optimization techniques as appropriate, variously including the following: *Automated exposure control *Adjustment of mA and/or kV according to patient size (this includes techniques or standardized protocols for targeted exams where dose is matched to indication/reason for exam; i.e. extremities or head) *Use of iterative reconstruction technique DLP: 996 mGy-cm FINDINGS: LUNG BASES: Minor bibasilar pleural-parenchymal disease noted. LIVER, GALLBLADDER, AND BILIARY TREE: Nodular contour to the liver suggesting cirrhosis. There is a small amount of presumably fluid with adjacent to the dome of the liver. No discrete mass. Hepatic and portal vessels are patent. There are gallstones within the gallbladder lumen. No gross biliary ductal dilatation or choledocholithiasis. PANCREAS: Unremarkable. SPLEEN: Nonspecific splenomegaly measuring up to 14.2 cm. ADRENAL GLANDS: Unremarkable. KIDNEYS AND URETERS: The kidneys are normal in size, shape, and attenuation. No hydronephrosis, hydroureter, or calculi seen. No perinephric stranding. BLADDER: Unremarkable. GASTROINTESTINAL TRACT: There is a left-sided loop colostomy noted. No obstruction. No acute inflammatory changes. Large stool ball within the rectum measuring 7.4 cm without definitive findings of stercoral colitis. ABDOMINAL WALL: Supraumbilical midline small abdominal wall defect with herniation of omentum. No bowel involvement. There is a large decubitus midline within the upper buttock region extending to the coccyx. Indurated tissue noted. No organized fluid collection. No CT evidence for any definite osteomyelitis. No bony destruction. LYMPH NODES: Normal. VASCULAR: Unremarkable. PELVIC VISCERA: Unremarkable. OSSEOUS STRUCTURES: Unremarkable. CT/CT abdomen pelvis w con IMPRESSION: Large decubitus midline extending to the coccyx without definite findings of osteomyelitis. Please note MRI may be more sensitive in detecting early infection. No fluid collection. Incidental findings as above.
[2021-02-27 14:56] VITALS: BP 121/66; PULSE 115; RESP 17; TEMP 37.1; O2SAT 97
[2021-02-27 15:12] VITALS: BP 121/68; PULSE 67; RESP 16; TEMP 36.9; O2SAT 97; BMI 23.4
--- NOTE | 2021-02-27 15:50 | ED.GENADULT ---
HPI - General Adult General Chief complaint: General Medical Stated complaint: ?infected wounds Source: patient and EMS Mode of arrival: EMS Limitations: physical limitation History of Present Illness HPI narrative: 70-year-old male presents from alf facility for worsening pain and suspicion of infection to his stage IV decubitus ulcer. Onset (ago): unknown Location: buttocks Radiation: back Severity: severe Severity scale (1-10): 9 Quality: aching Pain Consistency: constant Relieving factors: none Exacerbating factors: movement Related Data Allergies Allergy/AdvReac Type Severity Reaction Status Date / Time No Known Allergies Allergy Verified 02/27/21 15:57 Review of Systems Review of Systems: Constitutional: Confused per baseline, Aphasic, No Fever, No Chills ENT/Mouth: No Ear Pain, No Hoarseness, No sore throat Eyes: No Eye Pain, No Swelling, No Redness, No Foreign Body Cardiovascular: No Chest Pain, No SOB Respiratory: No Cough, No Dyspnea Gastrointestinal: No Nausea, No Vomiting, No Diarrhea, No abdominal Pain Genitourinary: No Dysuria, No Hematuria Musculoskeletal: Positive right-sided contracture per baseline, positive back and pelvis pain, No Myalgias, No Joint Swelling Skin: Stage IV decubitus ulcer to the coccyx, bilateral heels, No Skin lacerations, No rash Neuro: No Weakness, No Numbness, No Paresthesias, No Loss of Consciousness, No Dizziness, No Headache Psych: No Anxiety/Panic, No Depression Heme/Lymph: no easy bruising, no Lymphadenopathy Endocrine: No Polyuria, No Polydipsia Yes all other systems are reviewed and are negative [facility] Past Medical History Attestation statement: The following information was validated with the patient. Source: old records reviewed Social History Social History Advance Directives: Yes Advance Directives on File: Yes Advance Directives Date on File: 02/27/21 Physical Exam Vital Signs: Vital Signs: Last Vital Signs Temp 98.1 F 02/27/21 20:29 Pulse 102 H 02/27/21 20:29 Resp 15 02/27/21 20:29 BP 136/71 02/27/21 20:29 Pulse Ox 98 02/27/21 20:29 Body Mass Index 23.4 Appearance: Alert. Oriented to self, confused her baseline. Able to answer simple questions. Reports pain. Eyes: Pupils equal, round and reactive to light. Sclera nonicteric. ENT: Pharynx normal. Dry mucous membranes. Neck: Normal inspection. Neck supple. CVS: Normal heart rate and rhythm. Pulses normal. Respiratory: No respiratory distress. Decreased lung sounds bilaterally. Abdomen: Soft and nontender. Skin: Stage IV decubitus ulcer to coccyx Please refer to photograph. Bilateral heel ulcers. Skin warm and dry. Normal skin color. Normal skin turgor. Extremities: No lower extremity edema. Right-sided contracture per baseline. Neuro: No motor deficit. No sensory deficit. Course Course Course Narrative: 70-year-old male presents for worsening pain to stage IV coccyx decubitus ulcer site. Skilled facility notes indicate that patient has been more uncomfortable over the past few days. 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 On 02/24 patient was diagnosed with UTI and given Rocephin and azithromycin, chest x-ray shows a question of right lower lobe pneumonia. He was treated with Rocephin and azithromycin. While patient does have a significant ulcer, history of osteo, will treat for decubitus ulcer and give 2nd g of ceftriaxone and vancomycin. Will order CT scan of pelvis with contrast to rule out coccyx, sacral osteo. Patient's lab values indicate 12.9 white count, negative COVID test. 7:[address] scan still pending. CT scan does not indicate any evidence of osteomyelitis. Will discharge to alf facility, continue all prescribed medications. RN called report to Nursing at SNF. Medical Decision Making Differential Diagnosis Differential Diagnosis: Osteomyelitis, sepsis Medical Records Medical records reviewed: Yes I reviewed the patient's medical records. Lab Data Lab results reviewed: Yes I reviewed the patient's lab results. Result diagrams: 02/27/21 16:30 02/27/21 16:30 Labs: Lab Results 02/27/21 02/27/21 02/27/21 Range/Units 16:30 16:30 16:30 WBC 12.9 H (4.8-10.8) X10*3/uL RBC 4.03 L (4.60-5.80) X10*6/uL Hgb 12.1 L (14.0-18.0) g/dl Hct 35.7 L (42-52) % MCV 88.6 (80-98) fL MCH 30.0 (27.0-33.0) pg MCHC 33.9 (31.0-36.0) g/dl RDW 12.4 (11.0-16.0) % Plt Count 253 (160-400) X10*3/uL MPV 9.9 (9.4-12.4) fL Immature Gran % (Auto) 0.4 (0.0-0.4) % Neut % (Auto) 73.1 H (45-73) % Lymph % (Auto) 8.5 L (20-40) % [place] % (Auto) 14.9 H (2-11) % Eos % (Auto) 2.9 (0-4) % Baso % (Auto) 0.2 (0-2) % Lymph # (Auto) 1.1 L (1.2-4.9) X10*3/uL [place] # (Auto) 1.9 H (0.1-1.2) X10*3/uL Eos # (Auto) 0.4 (0.0-0.4) X10*3/uL Baso # (Auto) 0.0 (0.0-0.2) X10*3/uL Abs Immat Gran (auto) 0.05 H (0.00-0.03) X10*3/uL Absolute Neuts (auto) 9.4 H (2.0-8.3) X10*3/uL Absolute Nucleated RBC 0.000 (0.0-0.012) X10*3/uL Nucleated RBC % (auto) 0.0 (0.0-0.2) /100WBC Smear Tech's Comments VERIFIED APTT 30.2 (24.1-38.0) SEC Sodium 136 (135-145) mmol/L Potassium 4.8 (3.3-5.1) mmol/L Chloride 100 (96-108) mmol/L Carbon Dioxide 26 (22-29) mmol/L Anion Gap 15 (12-20) BUN 15 (9-16) mg/dL Creatinine 0.97 (0.5-1.4) mg/dL Estim Creat Clear Calc 66.5 Estimated GFR > 60 Random Glucose 183 H D (60-115) mg/dL Lactic Acid (0.5-2.0) mmol/L Calcium 9.2 (8.4-10.2) mg/dL Total Bilirubin 0.6 (0.0-1.0) mg/dL Direct Bilirubin 0.2 (0.0-0.5) mg/dL AST 37 (5-37) U/L ALT 43 H (0-40) U/L Alkaline Phosphatase 145 H (39-117) U/L Total Protein 6.7 (6.5-8.0) g/dL Albumin 3.3 L (3.5-5.0) g/dL Lipase 18 (8-78) U/L Coronavirus (PCR) (Negative) Influenza Type A (PCR) (Negative) Influenza Type B (PCR) (Negative) RSV RNA Qual (PCR) (Negative) 02/27/21 02/27/21 Range/Units 16:30 16:55 WBC (4.8-10.8) X10*3/uL RBC (4.60-5.80) X10*6/uL Hgb (14.0-18.0) g/dl Hct (42-52) % MCV (80-98) fL MCH (27.0-33.0) pg MCHC (31.0-36.0) g/dl RDW (11.0-16.0) % Plt Count (160-400) X10*3/uL MPV (9.4-12.4) fL Immature Gran % (Auto) (0.0-0.4) % Neut % (Auto) (45-73) % Lymph % (Auto) (20-40) % [place] % (Auto) (2-11) % Eos % (Auto) (0-4) % Baso % (Auto) (0-2) % Lymph # (Auto) (1.2-4.9) X10*3/uL [place] # (Auto) (0.1-1.2) X10*3/uL Eos # (Auto) (0.0-0.4) X10*3/uL Baso # (Auto) (0.0-0.2) X10*3/uL Abs Immat Gran (auto) (0.00-0.03) X10*3/uL Absolute Neuts (auto) (2.0-8.3) X10*3/uL Absolute Nucleated RBC (0.0-0.012) X10*3/uL Nucleated RBC % (auto) (0.0-0.2) /100WBC Smear Tech's Comments APTT (24.1-38.0) SEC Sodium (135-145) mmol/L Potassium (3.3-5.1) mmol/L Chloride (96-108) mmol/L Carbon Dioxide (22-29) mmol/L Anion Gap (12-20) BUN (9-16) mg/dL Creatinine (0.5-1.4) mg/dL Estim Creat Clear Calc Estimated GFR Random Glucose (60-115) mg/dL Lactic Acid 1.4 (0.5-2.0) mmol/L Calcium (8.4-10.2) mg/dL Total Bilirubin (0.0-1.0) mg/dL Direct Bilirubin (0.0-0.5) mg/dL AST (5-37) U/L ALT (0-40) U/L Alkaline Phosphatase (39-117) U/L Total Protein (6.5-8.0) g/dL Albumin (3.5-5.0) g/dL Lipase (8-78) U/L Coronavirus (PCR) NEGATIVE (Negative) Influenza Type A (PCR) NEGATIVE (Negative) Influenza Type B (PCR) NEGATIVE (Negative) RSV RNA Qual (PCR) NEGATIVE (Negative) Imaging Data CT pelvis with contrast: Attestation: I personally reviewed and interpreted this imaging study as follows: Radiologist's impression: EXAMINATION: CT ABDOMEN AND PELVIS WITH CONTRAST? CLINICAL INFORMATION: Decubitus. Assess for osteomyelitis? COMPARISON: None? TECHNIQUE: Multidetector volumetric images were obtained from the superior aspect of the liver through the pubic symphysis following administration 85 mL of Omnipaque 350 intravenous contrast. Sagittal and coronal reformatted images were obtained on the technologist's workstation.? Oral contrast: No This CT examination was performed using dose optimization techniques as appropriate, variously including the following: *Automated exposure control *Adjustment of mA and/or kV according to patient size (this includes techniques or standardized protocols for targeted exams where dose is matched to indication/reason for exam; i.e. extremities or head) *Use of iterative reconstruction technique DLP: 996 mGy-cm FINDINGS: LUNG BASES: Minor bibasilar pleural-parenchymal disease noted.? LIVER, GALLBLADDER, AND BILIARY TREE: Nodular contour to the liver suggesting cirrhosis. There is a small amount of presumably fluid with adjacent to the dome of the liver. No discrete mass. Hepatic and portal vessels are patent. There are gallstones within the gallbladder lumen. No gross biliary ductal dilatation or choledocholithiasis.? PANCREAS: Unremarkable.? SPLEEN: Nonspecific splenomegaly measuring up to 14.2 cm.? ADRENAL GLANDS: Unremarkable.? KIDNEYS AND URETERS: The kidneys are normal in size, shape, and attenuation. No hydronephrosis, hydroureter, or calculi seen. No perinephric stranding. ? BLADDER: Unremarkable.? GASTROINTESTINAL TRACT: There is a left-sided loop colostomy noted. No obstruction. No acute inflammatory changes. Large stool ball within the rectum measuring 7.4 cm without definitive findings of stercoral colitis.? ABDOMINAL WALL: Supraumbilical midline small abdominal wall defect with herniation of omentum. No bowel involvement. There is a large decubitus midline within the upper buttock region extending to the coccyx. Indurated tissue noted. No organized fluid collection. No CT evidence for any definite osteomyelitis. No bony destruction.? LYMPH NODES: Normal. VASCULAR: Unremarkable. PELVIC VISCERA: Unremarkable.? OSSEOUS STRUCTURES: Unremarkable.? CT/CT abdomen pelvis w con IMPRESSION: Large decubitus midline extending to the coccyx without definite findings of osteomyelitis. Please note MRI may be more sensitive in detecting early infection. No fluid collection. ? Incidental findings as above.? ECG Data Attestation: I personally reviewed and interpreted this ECG as follows: Prior ECG tracings: not available for review Interpretation: Vent. Rate : 112 BPM ? ? Atrial Rate : 112 BPM ?? P-R Int : 136 ms? QRS Dur : 080 ms ? ? QT Int : 304 ms ? ? ? P-R-T Axes : -06 039 041 degrees ?? QTc Int : 414 ms ? Sinus tachycardia Otherwise normal ECG No previous ECGs available February 27, 2021 time 4:16 p.m. Critical Care Time Critical Care Time Critical Care Time: Yes Total Critical Care Time: 40 Attestation: I have personally provided critical care time exclusive of time spent on separately billable procedures. Time includes review of laboratory data, radiology results, discussion with consultants, and monitoring for potential decompensation. Interventions were performed as documented. Discharge Plan Discharge Clinical Impression: Decubital ulcer Qualifiers: Pressure injury location: sacral region Pressure injury stage: stage 4 Qualified Code(s): L89.154 - Pressure ulcer of sacral region, stage 4 Patient Disposition: er [facility] Instructions: Pressure Injury (ED) Additional Instructions: Mr. Burch was evaluated for worsening symptoms with suspicion of decubitus ulcer infection. CT scan of pelvis is negative for osteomyelitis. During his stay in the emergency department we gave 1 g of ceftriaxone IV, to equal 2 g for suspicion of infection to an ulcer with diabetic comorbidities. We also gave 750 mg of IV vancomycin to cover for osteomyelitis. Please continue with all medications prescribed previously. You may continue with ceftriaxone and azithromycin to complete course of antibiotics for UTI and URI prescribed on 02/24/2021. Thank you for choosing this emergency department for evaluation. Please follow-up with primary care physician as needed. Return to the emergency department for any new, concerning, or worsening symptoms. Interventions: ED Discharge Assessment Last Done: 02/27/21 22:19 Discharge Date/Time: 02/27/21 22:51
--- NOTE | 2021-02-27 15:57 | ECG_ITS ---
Test Reason : low BP Blood Pressure : / mmHG Vent. Rate : 112 BPM Atrial Rate : 112 BPM P-R Int : 136 ms QRS Dur : 080 ms QT Int : 304 ms P-R-T Axes : -06 039 041 degrees QTc Int : 414 ms Sinus tachycardia Otherwise normal ECG No previous ECGs available Referred By: Jacquie Bright Electronically Signed By:LINDY PEMBERTON MD
[2021-02-27] MEDS: 0.9 % Sodium Chloride 1,000 ML 999 ML IVCONT (16:34)
[2021-02-27 16:38] LABS: Basophils Percent Auto 0.2 % (0-2); Eosinophils Absolute Auto 0.4 X10*3/uL (0.0-0.4); Eosinophils Percent Auto 2.9 % (0-4); Hematocrit 35.7 % (42-52); Hemoglobin 12.1 g/dl (14.0-18.0); Imm Gran Abs Auto 0.05 X10*3/uL (0.00-0.03); Imm Gran Pct Auto 0.4 % (0.0-0.4); Lymphocytes Absolute Auto 1.1 X10*3/uL (1.2-4.9); Lymphocytes Percent Auto 8.5 % (20-40); MANUAL DIFF FLAG SCAN; Mean Corpuscular HGB Conc 33.9 g/dl (31.0-36.0); Mean Corpuscular Volume 88.6 fL (80-98); Mean Platelet Volume 9.9 fL (9.4-12.4); Monocytes Absolute Auto 1.9 X10*3/uL (0.1-1.2); Monocytes Percent Auto 14.9 % (2-11); Neutrophils Absolute Auto 9.4 X10*3/uL (2.0-8.3); Neutrophils Percent Auto 73.1 % (45-73); Platelet Count 253 X10*3/uL (160-400); Red Blood Count 4.03 X10*6/uL (4.60-5.80); Red Cell Distribution Width 12.4 % (11.0-16.0); SCAN SMEAR FLAG 1; White Blood Count 12.9 X10*3/uL (4.8-10.8)
[2021-02-27 16:46] LABS: Lactic Acid 1.4 mmol/L (0.5-2.0)
[2021-02-27 16:57] LABS: SLIDE REVIEW VERIFIED
[2021-02-27 16:59] LABS: Alanine Aminotransferase 43 U/L (0-40); Albumin Level 3.3 g/dL (3.5-5.0); Alkaline Phosphatase 145 U/L (39-117); Anion Gap 15 (12-20); Aspartate Amino Transferase 37 U/L (5-37); Bilirubin Direct 0.2 mg/dL (0.0-0.5); Bilirubin Total 0.6 mg/dL (0.0-1.0); Blood Urea Nitrogen 15 mg/dL (9-16); Calcium 9.2 mg/dL (8.4-10.2); Carbon Dioxide 26 mmol/L (22-29); Chloride 100 mmol/L (96-108); Creatinine Clr Calc Pharmacy 66.5; Estimated Glomerular Filt Rate > 60; Glucose Random 183 mg/dL (60-115); Lipase 18 U/L (8-78); Potassium 4.8 mmol/L (3.3-5.1); Sodium 136 mmol/L (135-145); Total Protein 6.7 g/dL (6.5-8.0)
[2021-02-27 17:05] LABS: Partial Thromboplastin Time 30.2 SEC (24.1-38.0)
[2021-02-27 17:32] VITALS: BP 129/69; PULSE 101; RESP 12; O2SAT 97
[2021-02-27 17:38] LABS: Influenza A PCR NEGATIVE (Negative); Influenza B PCR NEGATIVE (Negative); Resp Syncy Virus RNA Qual PCR NEGATIVE (Negative); SARS COV2 PCR INHOUSE NEGATIVE (Negative)
[2021-02-27] MEDS: cefTRIAXone sodium 1 GM in 0.9 % Sodium Chloride 50 ML IV (18:26)
[2021-02-27] MEDS: iohexoL 350 MG/ML 100 ML INFUS..BTL 85 ML IV (20:26)
[2021-02-27 20:29] VITALS: BP 136/71; PULSE 102; RESP 15; TEMP 36.7; O2SAT 98
--- NOTE | 2021-02-27 20:33 | PC.NURSE ---
RN assumed care at 1900. Pt alert and oriented, forgetful at times. Pt denies pain at this time. Pt turned an positioned. IV intat. Pt tolerated IV abx well. Pt clean dry and intact. Pt resting in stretcher, vitals stable. Will continue to monitor.
[2021-02-27] MEDS: vancomycin HCL 750 MG in 0.9 % Sodium Chloride 250 ML 265 MG IV (21:05)
[2021-02-27] MEDS: oxyCODONE HCl Immed Release 5 MG TABLET PO (21:06)
--- NOTE | 2021-02-27 22:21 | PC.NURSE ---
Pt alert and confused, at baseline mental status. Pt denies pain at this time. Pt turned and repositioned to other side, heel lift boots remain in place. Coccyx dressing remains clean dry and intact. Pt voided one large incontinent episode this shift, pt cleaned. IV removed per dc. Vitals remain stable. Pt resting in stretcher waiting to be picked up for discharge. Will continue to monitor.
== END 2021-02-27 22:51 | disposition skilled nursing facility (03) ==
PROVIDERS: Nurse Practitioner Family; Emergency Provider Internal Medicine; PCP Family Medicine
DX: L89.154 Pressure ulcer of sacral region, stage 4 (principal); N39.0 Urinary tract infection, site not specified; I10 Essential (primary) hypertension; E11.9 Type 2 diabetes mellitus without complications; I69.351 Hemiplegia and hemiparesis following cerebral infarction affecting right dominant side; Z93.3 Colostomy status; Z20.822 Contact with and (suspected) exposure to COVID-19
CPT/HCPCS: 0241U; 36415; 74177; 80048; 80076; 83605; 83690; 85025; 85730; 87040; 93005; 96361; 96365; 96367; 99284; 99291; J0696; J3370; Q9967

== ENCOUNTER 2021-03-01 00:18 | Outpatient (REF) | payer MEDICARE, OTHER, SELFPAY ==
[2021-03-01 06:47] LABS: Hematocrit 34.6 % (42-52); Hemoglobin 11.4 g/dl (14.0-18.0); Mean Corpuscular HGB Conc 32.9 g/dl (31.0-36.0); Mean Corpuscular Hemoglobin 29.2 pg (27.0-33.0); Mean Corpuscular Volume 88.7 fL (80-98); Mean Platelet Volume 10.3 fL (9.4-12.4); Platelet Count 243 X10*3/uL (160-400); Red Cell Distribution Width 12.5 % (11.0-16.0)
[2021-03-01 06:58] LABS: Anion Gap 15 (12-20); Blood Urea Nitrogen 16 mg/dL (9-16); Calcium 9.1 mg/dL (8.4-10.2); Carbon Dioxide 26 mmol/L (22-29); Chloride 101 mmol/L (96-108); Estimated Glomerular Filt Rate > 60; Glucose Random 147 mg/dL (60-115); Potassium 4.6 mmol/L (3.3-5.1); Sodium 137 mmol/L (135-145)
== END 2021-03-01 00:19 | disposition home or self-care (01) ==
LOC: HO.MMNH3L 00:18
PROVIDERS: Visit Provider Family Medicine
DX: A41.9 Sepsis, unspecified organism (principal); L89.159 Pressure ulcer of sacral region, unspecified stage
CPT/HCPCS: 36415; 80048; 85027

== ENCOUNTER 2021-03-08 00:19 | Outpatient (REF) | payer MEDICARE, MEDICAID, SELFPAY ==
[2021-03-08 06:56] LABS: Hematocrit 37.3 % (42-52); Mean Corpuscular HGB Conc 32.2 g/dl (31.0-36.0); Mean Corpuscular Hemoglobin 29.1 pg (27.0-33.0); Mean Corpuscular Volume 90.3 fL (80-98); Mean Platelet Volume 10.1 fL (9.4-12.4); Platelet Count 456 X10*3/uL (160-400); Red Blood Count 4.13 X10*6/uL (4.60-5.80); Red Cell Distribution Width 12.4 % (11.0-16.0); White Blood Count 7.6 X10*3/uL (4.8-10.8)
[2021-03-08 07:36] LABS: Anion Gap 14 (12-20); Blood Urea Nitrogen 12 mg/dL (9-16); Calcium 9.4 mg/dL (8.4-10.2); Carbon Dioxide 29 mmol/L (22-29); Chloride 104 mmol/L (96-108); Estimated Glomerular Filt Rate > 60; Glucose Random 111 mg/dL (60-115); Potassium 5.6 mmol/L (3.3-5.1); Sodium 141 mmol/L (135-145)
== END 2021-03-08 00:20 | disposition home or self-care (01) ==
LOC: HO.MMNH3L 00:19
PROVIDERS: Visit Provider Family Medicine
DX: A41.9 Sepsis, unspecified organism (principal); L89.159 Pressure ulcer of sacral region, unspecified stage
CPT/HCPCS: 36415; 80048; 85027

== ENCOUNTER 2021-03-15 08:12 | Outpatient (REF) | payer MEDICARE, MEDICAID, SELFPAY ==
[2021-03-15 07:15] LABS: Hematocrit 37.3 % (42.0-52.0); Hemoglobin 12.1 g/dl (14.0-18.0); Mean Corpuscular HGB Conc 32.4 g/dl (31.0-36.0); Mean Corpuscular Hemoglobin 29.2 pg (27.0-33.0); Mean Corpuscular Volume 89.9 fL (80.0-98.0); Platelet Count 386 X10*3/uL (160-400); Red Blood Count 4.15 X10*6/uL (4.60-5.80); Red Cell Distribution Width 12.6 % (11.0-16.0); White Blood Count 7.6 X10*3/uL (4.8-10.8)
[2021-03-15 07:51] LABS: Anion Gap 14 (12-20); Blood Urea Nitrogen 15 mg/dL (9-16); Calcium 9.6 mg/dL (8.4-10.2); Carbon Dioxide 27 mmol/L (22-29); Chloride 106 mmol/L (96-108); Estimated Glomerular Filt Rate > 60; Glucose Random 94 mg/dL (60-115); Potassium 5.1 mmol/L (3.3-5.1); Sodium 142 mmol/L (135-145)
== END 2021-03-15 08:13 | disposition home or self-care (01) ==
LOC: HO.MMNH3L 08:12
PROVIDERS: Visit Provider Family Medicine
DX: A41.9 Sepsis, unspecified organism (principal); L89.159 Pressure ulcer of sacral region, unspecified stage
CPT/HCPCS: 36415; 80048; 85027

== ENCOUNTER 2021-03-22 00:36 | Outpatient (REF) | payer MEDICARE, MEDICAID, SELFPAY ==
[2021-03-22 06:49] LABS: Hemoglobin 12.5 g/dl (14.0-18.0); Mean Corpuscular HGB Conc 32.9 g/dl (31.0-36.0); Mean Corpuscular Hemoglobin 29.7 pg (27.0-33.0); Mean Corpuscular Volume 90.3 fL (80.0-98.0); Mean Platelet Volume 10.3 fL (9.4-12.4); Platelet Count 265 X10*3/uL (160-400); Red Blood Count 4.21 X10*6/uL (4.60-5.80); Red Cell Distribution Width 13.3 % (11.0-16.0); White Blood Count 6.8 X10*3/uL (4.8-10.8)
[2021-03-22 07:29] LABS: Anion Gap 14 (12-20); Blood Urea Nitrogen 13 mg/dL (9-16); Carbon Dioxide 27 mmol/L (22-29); Chloride 106 mmol/L (96-108); Estimated Glomerular Filt Rate > 60; Glucose Random 88 mg/dL (60-115); Potassium 4.7 mmol/L (3.3-5.1); Sodium 142 mmol/L (135-145)
== END 2021-03-22 00:37 | disposition home or self-care (01) ==
LOC: HO.MMNH3L 00:36
PROVIDERS: Visit Provider Family Medicine
DX: A41.9 Sepsis, unspecified organism (principal); L89.159 Pressure ulcer of sacral region, unspecified stage
CPT/HCPCS: 36415; 80048; 85027

== ENCOUNTER 2021-03-24 06:44 | Outpatient (REF) | payer MEDICARE, MEDICAID, SELFPAY ==
[2021-03-24 06:49] LABS: MANUAL DIFF FLAG NO
[2021-03-24 06:55] LABS: Basophils Percent Auto 0.7 % (0-2); Eosinophils Absolute Auto 0.6 X10*3/uL (0.0-0.4); Eosinophils Percent Auto 10.2 % (0-4); Hematocrit 36.5 % (42.0-52.0); Hemoglobin 11.9 g/dl (14.0-18.0); Imm Gran Abs Auto 0.02 X10*3/uL (0.00-0.03); Imm Gran Pct Auto 0.4 % (0.0-0.4); Lymphocytes Absolute Auto 1.4 X10*3/uL (1.2-4.9); Lymphocytes Percent Auto 25.4 % (20-40); Mean Corpuscular HGB Conc 32.6 g/dl (31.0-36.0); Mean Corpuscular Hemoglobin 29.5 pg (27.0-33.0); Mean Corpuscular Volume 90.6 fL (80.0-98.0); Mean Platelet Volume 10.3 fL (9.4-12.4); Monocytes Absolute Auto 0.6 X10*3/uL (0.1-1.2); Monocytes Percent Auto 10.7 % (2-11); Neutrophils Percent Auto 52.6 % (45-73); Platelet Count 235 X10*3/uL (160-400); Red Blood Count 4.03 X10*6/uL (4.60-5.80); Red Cell Distribution Width 13.6 % (11.0-16.0); White Blood Count 5.7 X10*3/uL (4.8-10.8)
[2021-03-24 07:00] LABS: Appearance Urine CLEAR; Color Urine YELLOW; Glucose Urine UA NEG (NEG); Leukocyte Esterase Urine NEG (NEG); Nitrite Urine NEG (NEG); Specific Gravity - Urine 1.015 (1.005-1.025); Urine Blood NEG (NEG); Urine Ketones NEG (NEG); Urine Protein NEG (NEG-TRACE)
[2021-03-24 07:29] LABS: Alanine Aminotransferase 30 U/L (0-40); Albumin Level 3.7 g/dL (3.5-5.0); Alkaline Phosphatase 150 U/L (39-117); Anion Gap 11 (12-20); Aspartate Amino Transferase 28 U/L (5-37); Bilirubin Total 0.5 mg/dL (0.0-1.0); Blood Urea Nitrogen 16 mg/dL (9-16); Calcium 9.3 mg/dL (8.4-10.2); Carbon Dioxide 30 mmol/L (22-29); Chloride 105 mmol/L (96-108); Estimated Glomerular Filt Rate > 60; Glucose Random 101 mg/dL (60-115); Sodium 141 mmol/L (135-145); Total Protein 6.6 g/dL (6.5-8.0)
== END 2021-03-24 06:45 | disposition home or self-care (01) ==
LOC: HO.MMNH3L 06:44
PROVIDERS: Visit Provider Family Medicine
DX: R41.0 Disorientation, unspecified (principal)
CPT/HCPCS: 36415; 80053; 81003; 85025; 87086

== ENCOUNTER 2021-03-27 14:54 | Inpatient (IN) | payer OTHER, MEDICAID, SELFPAY ==
--- NOTE | ~2021-03-27 | XR_ITS ---
EXAMINATION: XR CHEST CLINICAL INFORMATION: Weakness COMPARISON: None TECHNIQUE: Frontal view of the chest was obtained. FINDINGS: No significant abnormality is noted involving the heart, lungs, mediastinum, bony thorax or soft tissues. XR/XR chest 1V IMPRESSION: Unremarkable examination.
--- NOTE | ~2021-03-27 | CT_ITS ---
EXAMINATION: CT PELVIS WITH CONTRAST CLINICAL INFORMATION: Altered mental status, fever COMPARISON: 02/27/2021 TECHNIQUE: Helical scanning was performed with submillimeter collimation through the pelvis with the use of oral contrast and during bolus intravenous injection of 85 mL of Omnipaque 350 intravenous contrast. Sagittal and coronal multiplanar 2-D reconstructions were obtained. This CT examination was performed using dose optimization techniques as appropriate, variously including the following: *Automated exposure control *Adjustment of mA and/or kV according to patient size (this includes techniques or standardized protocols for targeted exams where dose is matched to indication/reason for exam; i.e. extremities or head) *Use of iterative reconstruction technique DLP: 886 mGy-cm FINDINGS: There is a sacral decubitus ulcer with soft tissue thickening extending to the coccyx. No abscess. There is increased density of the distal 1st coccygeal segment, unchanged. No cortical erosion or periosteal reaction to indicate active osteomyelitis. Hazy attenuation of the surrounding subcutaneous fat extending to the medial aspect of the gluteus marcel muscles. The rectum is distended with stool with surrounding edema which may represent stercoral colitis. This does not appear significantly changed. CT/CT pelvis w con IMPRESSION: Sacral decubitus ulcer with no evidence of an abscess. Sclerosis of the underlying coccyx appears similar to the 02/27/2021 study. No acute osseous abnormality is evident. MRI would be a more sensitive evaluation for the identification of early or mild osteomyelitis. Rectal distention with stool and possible stercoral colitis, similar to previous.
--- NOTE | ~2021-03-27 | CT_ITS ---
EXAMINATION: CT HEAD WITHOUT CONTRAST CLINICAL INFORMATION: Altered mental status, fever COMPARISON: None TECHNIQUE: Contiguous axial imaging was performed from the skull base to vertex without intravenous administration of contrast. This CT examination was performed using dose optimization techniques as appropriate, variously including the following: *Automated exposure control *Adjustment of mA and/or kV according to patient size (this includes techniques or standardized protocols for targeted exams where dose is matched to indication/reason for exam; i.e. extremities or head) *Use of iterative reconstruction technique DLP: 886 mGy-cm FINDINGS: Extensive periventricular white matter hypodensities, a nonspecific finding but most commonly due to chronic small vessel ischemic disease. No evidence of acute intracranial hemorrhage or extra-axial fluid collection. Basal ganglia lacunar infarcts bilaterally. No evidence of mass lesion, mass effect or mid line shift. The ventricles are symmetric in configuration and basal cisterns are patent. The calvarium is intact. Limited views of the paranasal sinuses are unremarkable. Mastoid air cells are well aerated and middle ear cavities are clear. CT/CT head/brain wo con IMPRESSION: No acute intracranial pathology.
[2021-03-27 15:07] VITALS: BP 104/56; BP 108/63; PULSE 106; PULSE 117; RESP 20; TEMP 37.8; O2SAT 100; O2SAT 95; BMI 27.4
--- NOTE | 2021-03-27 15:24 | ECG_ITS ---
Test Reason : SEPSIS ALERT Blood Pressure : / mmHG Vent. Rate : 109 BPM Atrial Rate : 109 BPM P-R Int : 136 ms QRS Dur : 084 ms QT Int : 314 ms P-R-T Axes : -07 038 046 degrees QTc Int : 422 ms Sinus tachycardia Otherwise normal ECG When compared with ECG of 27-FEB-2021 16:16, No significant change was found Referred By: Abi Fajardo Electronically Signed By:LINDY PEMBERTON MD
--- NOTE | 2021-03-27 15:24 | PC.NURSE ---
pt [place] R diaz Red, warm, skin itact. Wound to coccyx, provider photographed, covered with dressing,.
--- NOTE | 2021-03-27 15:35 | ED.AMS ---
HPI - Altered Mental Status General Chief Complaint: Altered Mental Status Stated Complaint: increased ams Time Seen by Provider: 03/27/21 15:15 Source: patient and EMS Mode of arrival: EMS Limitations: no limitations History of Present Illness HPI narrative: This is a 70-year-old male coming from [facility] which is a care home in the local area. 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 The patient was sent in from staff for increasing aggression and concern for change in mental status over the last few days. Also noted to have a temperature of 100 degrees F today with tachycardia of 130 and so he was sent in for a further evaluation. He did receive Tylenol 325 mg prior to arrival. Also noted to have a rash the right lower extremity for unknown length of time Related Data Home Medications Medication Instructions Recorded Confirmed acetaminophen 325 mg tablet 650 mg PO Q4H PRN 03/27/21 03/27/21 ascorbic acid (vitamin C) 500 mg 500 mg PO BID 03/27/21 03/27/21 tablet (Vitamin C) aspirin 81 mg tablet,delayed 81 mg PO DAILY 03/27/21 03/27/21 release atorvastatin 80 mg tablet 80 mg PO BEDTIME 03/27/21 03/27/21 bisacodyl 10 mg rectal suppository 10 mg MA Q3D PRN 03/27/21 03/27/21 (Dulcolax (bisacodyl)) clopidogrel 75 mg tablet 75 mg PO DAILY 03/27/21 03/27/21 dextrose 40 % oral gel (Glucose 10 g PO Q15M PRN 03/27/21 03/27/21 Gel) docusate sodium 100 mg capsule 100 mg PO BID 03/27/21 03/27/21 (Colace) ergocalciferol (vitamin D2) 1,250 1,250 mcg PO WE@0900 03/27/21 03/27/21 mcg (50,000 unit) capsule glucagon HCl 1 mg solution for 1 mg SUBCUT Q20M PRN 03/27/21 03/27/21 injection (Glucagon (HCl) Emergency Kit) insulin lispro 100 unit/mL See Protocol SUBCUT TIDAC 03/27/21 03/27/21 subcutaneous pen (Admelog SoloStar U-100 Insulin lispro) magnesium hydroxide 400 mg/5 mL 30 ml PO DAILY PRN 03/27/21 03/27/21 oral suspension (Milk of Magnesia) miconazole nitrate 2 % topical 1 appl TOPICAL BID 03/27/21 03/27/21 cream mirtazapine 15 mg tablet 15 mg PO BEDTIME 03/27/21 03/27/21 multivitamin 1 tab PO DAILY 03/27/21 03/27/21 nystatin 100,000 unit/gram topical 1 appl TOPICAL BID 03/27/21 03/27/21 powder omeprazole 20 mg capsule,delayed 20 mg PO DAILY@0630 03/27/21 03/27/21 release ondansetron HCl 4 mg tablet 4 mg PO Q6H PRN 03/27/21 03/27/21 oxycodone 5 mg tablet 5 mg PO Q12H PRN 03/27/21 03/27/21 polyethylene glycol 3350 17 17 g PO DAILY 03/27/21 03/27/21 gram/dose oral powder (Miralax) sodium phosphates 19 gram-7 118 ml MA Q3D PRN 03/27/21 03/27/21 gram/118 mL enema (Fleet Enema) thiamine HCl (vitamin B1) 100 mg 100 mg PO DAILY 03/27/21 03/27/21 tablet Allergies Allergy/AdvReac Type Severity Reaction Status Date / Time No Known Allergies Allergy Verified 02/27/21 15:57 Review of Systems Review of Systems: Yes Unobtainable due to mental status Neurologic: Denies Abnormal speech present PMFSH Past Medical History Attestation statement: The following information was validated with the patient. Source: old records reviewed and nursing notes reviewed Social History Social History Alcohol intake: never Use of substances other than those prescribed or required for medical reasons: No Advance Directives: Yes Advance Directives on File: Yes Advance Directives Date on File: 02/27/21 Physical Exam Vital Signs: Vital Signs: Last Vital Signs Temp 98.5 F 03/27/21 17:48 Pulse 93 03/27/21 20:39 Resp 11 L 03/27/21 20:39 BP 111/59 L 03/27/21 20:39 Pulse Ox 96 03/27/21 16:59 Body Mass Index 27.4 Const: General: cooperative and alert Orientation/consciousness: oriented to person and oriented to place Limitations: no limitations HENMT: Head: Yes normal to inspection Ears: hearing grossly normal bilaterally and TM's normal bilaterally General nose exam: Normal external nose present Face and sinus: Yes normal facial exam Mouth: Normal oral and palatal mucosa present Throat: Yes posterior oropharynx normal, Yes tonsils normal and Yes uvula midline Eyes: General: appearance normal, both eyes and all related structures Pupils: Equal, round and reactive pupils present Neck: Neck: Yes normal visual inspection, Yes full ROM, Yes no lymphadenopathy and Yes no meningeal signs Chest: Chest palpation & inspection: normal inspection of the chest Resp: Effort & Inspection: normal respiratory effort Auscultation: clear to auscultation bilaterally Cardio: Rate: regular rate Rhythm: regular rhythm Peripheral pulses: Peripheral pulses 2+ throughout GI: Inspection: Yes normal to inspection Palpation (GI): Soft to palpation and nontender Auscultation: normal bowel sounds Back/Spine/Pelvis: Other: Thoracic/Lumbar Spine: thoracic and lumbar spine normal to inspection Skin: General skin exam: no rashes or lesions noted Neuro: Other: Right-sided weakness at baseline with a contracted right upper extremity Slight slurred speech which patient tells me is his baseline General: oriented to person, oriented to place, no meningeal signs, no focal motor deficits, normal sensation to monofilament and Unable to assess gait Cranial nerves: Yes Equal, round and reactive pupils present Cognition (Neuro): normal cognition Speech: No Abnormal speech present Gait exam (Neuro): Unable to assess gait Extrem: Other: erythema and warmth along the medial aspect which is not circumferential with palpable distal pulses and no tenderness or swelling of the calf. General: Yes normal to inspection and Yes no calf tenderness Course Course Course Narrative: 70 yo Male coming from a care home with concern for change in behavior over the last few days with a low-grade fever and a rash to the right lower extremity. On arrival the patient is alert and oriented x2. He is following commands. Denies any physical complaints. He does have a right lower extremity area of erythema and warmth along the medial aspect which is not circumferential with palpable distal pulses and no tenderness or swelling of the calf. He also has a chronic wound of the sacrum with surrounding erythema. There is slight drainage but no tenderness on exam. No palpable fluctuance or induration. On arrival the patient is febrile and tachycardic. Will need labs including blood cultures and lactic acid. At this time infection is suspected. Antibiotics ordered. Patient is obese ideal body weight of 70 kg use. Normal saline of 30 cc/kilos ordered for a total of 2100 mL of normal saline. Patient will also need chest x-ray, COVID screen, EKG and UA. May also need imaging of the pelvis and head 2030-reviewed labs which showed an elevated lactic acid, no leukocytosis but there is a shift to the last. Urine shows no signs of infection. Chest x-ray is negative. COVID screen is negative. Due to concern of change in behavior a CT scan of the head was done which shows no acute finding. Patient is only mildly confused with no meningeal signs were reports of headache still less likely underlying meningitis. A CT the pelvis was done due to a chronic wound on the sacrum. It does show a sacral ulcer with no evidence of abscess. There is some hazy attenuation of the surrounding subcutaneous fat extending to the medial aspect of the gluteus marcel muscle which could be consistent with cellulitis. Also noted that MRI is more sensitive for osteomyelitis. At this time infection is suspected. Additional antibiotics ordered. Patient presented with fever, tachycardia and an initial low blood pressure with an obvious source of infection. Will require admission. Call out to medicine to discuss. 2044-discussed with Dr. Garcia who accepted admission of patient. MDM - Altered Mental Status Medical Records Attestation: I reviewed the patient's medical records. Lab Data Attestation: I reviewed the patient's lab results. Result diagrams: 03/27/21 15:45 03/27/21 15:44 Labs: Lab Results 03/27/21 03/27/21 03/27/21 Range/Units 15:44 15:44 15:45 WBC 9.5 (4.8-10.8) X10*3/uL RBC 3.98 L (4.60-5.80) X10*6/uL Hgb 11.8 L (14.0-18.0) g/dl Hct 35.7 L (42.0-52.0) % MCV 89.7 (80.0-98.0) fL MCH 29.6 (27.0-33.0) pg MCHC 33.1 (31.0-36.0) g/dl RDW 13.9 (11.0-16.0) % Plt Count 224 (160-400) X10*3/uL MPV 9.8 (9.4-12.4) fL Immature Gran % (Auto) 0.3 (0.0-0.4) % Neut % (Auto) 79.9 H (45-73) % Lymph % (Auto) 8.8 L (20-40) % [place] % (Auto) 10.4 (2-11) % Eos % (Auto) 0.4 (0-4) % Baso % (Auto) 0.2 (0-2) % Lymph # (Auto) 0.8 L (1.2-4.9) X10*3/uL [place] # (Auto) 1.0 (0.1-1.2) X10*3/uL Eos # (Auto) 0.0 (0.0-0.4) X10*3/uL Baso # (Auto) 0.0 (0.0-0.2) X10*3/uL Abs Immat Gran (auto) 0.03 (0.00-0.03) X10*3/uL Absolute Neuts (auto) 7.6 (2.0-8.3) x10*3/uL Absolute Nucleated RBC 0.000 (0.0-0.012) X10*3/uL Nucleated RBC % (auto) 0.0 (0.0-0.2) /100WBC Sodium 146 H (135-145) mmol/L Potassium 3.9 D (3.3-5.1) mmol/L Chloride 111 H (96-108) mmol/L Carbon Dioxide 27 (22-29) mmol/L Anion Gap 12 (12-20) BUN 16 (9-16) mg/dL Creatinine 0.93 (0.5-1.4) mg/dL Estim Creat Clear Calc 71.7 Estimated GFR > 60 POC Glucose (60-115) mg/dL Random Glucose 111 (60-115) mg/dL Lactic Acid 2.1 H* (0.5-2.0) mmol/L Lactic Acid Fup @ 2Hr (0.5-2.0) mmol/L Calcium 9.7 (8.4-10.2) mg/dL Magnesium 1.6 (1.6-2.6) mg/dL Total Bilirubin 0.6 (0.0-1.0) mg/dL Direct Bilirubin 0.3 (0.0-0.5) mg/dL AST 26 (5-37) U/L ALT 28 (0-40) U/L Alkaline Phosphatase 147 H (39-117) U/L Total Protein 7.1 (6.5-8.0) g/dL Albumin 4.0 (3.5-5.0) g/dL Urine Color Urine Appearance Urine pH (5.0-8.0) Ur Specific [place] (1.005-1.025) Urine Protein (NEG-TRACE) MG/DL Urine Glucose (UA) (NEG) MG/DL Urine Ketones (NEG) MG/DL Urine Blood (NEG) Urine Nitrite (NEG) Ur Leukocyte Esterase (NEG) Urine RBC (0) /HPF Urine WBC (0-4) /HPF Ur Squamous Epith Cells /LPF Ur Renal Epithelial Cell /LPF Urine Bacteria /LPF Urine Mucus /LPF COVID-19 (ÓSCAR) (Negative) COVID-19 Clin Com 03/27/21 03/27/21 03/27/21 Range/Units 15:45 17:59 18:24 WBC (4.8-10.8) X10*3/uL RBC (4.60-5.80) X10*6/uL Hgb (14.0-18.0) g/dl Hct (42.0-52.0) % MCV (80.0-98.0) fL MCH (27.0-33.0) pg MCHC (31.0-36.0) g/dl RDW (11.0-16.0) % Plt Count (160-400) X10*3/uL MPV (9.4-12.4) fL Immature Gran % (Auto) (0.0-0.4) % Neut % (Auto) (45-73) % Lymph % (Auto) (20-40) % [place] % (Auto) (2-11) % Eos % (Auto) (0-4) % Baso % (Auto) (0-2) % Lymph # (Auto) (1.2-4.9) X10*3/uL [place] # (Auto) (0.1-1.2) X10*3/uL Eos # (Auto) (0.0-0.4) X10*3/uL Baso # (Auto) (0.0-0.2) X10*3/uL Abs Immat Gran (auto) (0.00-0.03) X10*3/uL Absolute Neuts (auto) (2.0-8.3) x10*3/uL Absolute Nucleated RBC (0.0-0.012) X10*3/uL Nucleated RBC % (auto) (0.0-0.2) /100WBC Sodium (135-145) mmol/L Potassium (3.3-5.1) mmol/L Chloride (96-108) mmol/L Carbon Dioxide (22-29) mmol/L Anion Gap (12-20) BUN (9-16) mg/dL Creatinine (0.5-1.4) mg/dL Estim Creat Clear Calc Estimated GFR POC Glucose 85 (60-115) mg/dL Random Glucose (60-115) mg/dL Lactic Acid (0.5-2.0) mmol/L Lactic Acid Fup @ 2Hr (0.5-2.0) mmol/L Calcium (8.4-10.2) mg/dL Magnesium (1.6-2.6) mg/dL Total Bilirubin (0.0-1.0) mg/dL Direct Bilirubin (0.0-0.5) mg/dL AST (5-37) U/L ALT (0-40) U/L Alkaline Phosphatase (39-117) U/L Total Protein (6.5-8.0) g/dL Albumin (3.5-5.0) g/dL Urine Color YELLOW Urine Appearance CLEAR Urine pH 6.0 (5.0-8.0) Ur Specific [place] 1.025 (1.005-1.025) Urine Protein NEG (NEG-TRACE) MG/DL Urine Glucose (UA) NEG (NEG) MG/DL Urine Ketones NEG (NEG) MG/DL Urine Blood 2+ H (NEG) Urine Nitrite NEG (NEG) Ur Leukocyte Esterase NEG (NEG) Urine RBC 10-14 H (0) /HPF Urine WBC 0 (0-4) /HPF Ur Squamous Epith Cells TRACE /LPF Ur Renal Epithelial Cell TRACE /LPF Urine Bacteria NONE /LPF Urine Mucus TRACE /LPF COVID-19 (ÓSCAR) Negative (Negative) COVID-19 Clin Com See Note 03/27/21 Range/Units 18:36 WBC (4.8-10.8) X10*3/uL RBC (4.60-5.80) X10*6/uL Hgb (14.0-18.0) g/dl Hct (42.0-52.0) % MCV (80.0-98.0) fL MCH (27.0-33.0) pg MCHC (31.0-36.0) g/dl RDW (11.0-16.0) % Plt Count (160-400) X10*3/uL MPV (9.4-12.4) fL Immature Gran % (Auto) (0.0-0.4) % Neut % (Auto) (45-73) % Lymph % (Auto) (20-40) % [place] % (Auto) (2-11) % Eos % (Auto) (0-4) % Baso % (Auto) (0-2) % Lymph # (Auto) (1.2-4.9) X10*3/uL [place] # (Auto) (0.1-1.2) X10*3/uL Eos # (Auto) (0.0-0.4) X10*3/uL Baso # (Auto) (0.0-0.2) X10*3/uL Abs Immat Gran (auto) (0.00-0.03) X10*3/uL Absolute Neuts (auto) (2.0-8.3) x10*3/uL Absolute Nucleated RBC (0.0-0.012) X10*3/uL Nucleated RBC % (auto) (0.0-0.2) /100WBC Sodium (135-145) mmol/L Potassium (3.3-5.1) mmol/L Chloride (96-108) mmol/L Carbon Dioxide (22-29) mmol/L Anion Gap (12-20) BUN (9-16) mg/dL Creatinine (0.5-1.4) mg/dL Estim Creat Clear Calc Estimated GFR POC Glucose (60-115) mg/dL Random Glucose (60-115) mg/dL Lactic Acid (0.5-2.0) mmol/L Lactic Acid Fup @ 2Hr 1.3 (0.5-2.0) mmol/L Calcium (8.4-10.2) mg/dL Magnesium (1.6-2.6) mg/dL Total Bilirubin (0.0-1.0) mg/dL Direct Bilirubin (0.0-0.5) mg/dL AST (5-37) U/L ALT (0-40) U/L Alkaline Phosphatase (39-117) U/L Total Protein (6.5-8.0) g/dL Albumin (3.5-5.0) g/dL Urine Color Urine Appearance Urine pH (5.0-8.0) Ur Specific [place] (1.005-1.025) Urine Protein (NEG-TRACE) MG/DL Urine Glucose (UA) (NEG) MG/DL Urine Ketones (NEG) MG/DL Urine Blood (NEG) Urine Nitrite (NEG) Ur Leukocyte Esterase (NEG) Urine RBC (0) /HPF Urine WBC (0-4) /HPF Ur Squamous Epith Cells /LPF Ur Renal Epithelial Cell /LPF Urine Bacteria /LPF Urine Mucus /LPF COVID-19 (ÓSCAR) (Negative) COVID-19 Clin Com Imaging Data Chest x-ray: Attestation: I personally reviewed and interpreted this imaging study as follows: Radiologist's impression: EXAMINATION: XR CHEST CLINICAL INFORMATION: Weakness COMPARISON: None TECHNIQUE: Frontal view of the chest was obtained. FINDINGS: No significant abnormality is noted involving the heart, lungs, mediastinum, bony thorax or soft tissues. XR/XR chest 1V IMPRESSION: Unremarkable examination. ? CT scan - pelvis: Attestation: I personally reviewed and interpreted this imaging study as follows: Radiologist's impression: IMPRESSION: Sacral decubitus ulcer with no evidence of an abscess. Sclerosis of the underlying coccyx appears similar to the 02/27/2021 study. No acute osseous abnormality is evident. MRI would be a more sensitive evaluation for the identification of early or mild osteomyelitis. ? Rectal distention with stool and possible stercoral colitis, similar to previous. CT scan - head: Attestation: I personally reviewed and interpreted this imaging study as follows: Radiologist's impression: FINDINGS: Extensive periventricular white matter hypodensities, a nonspecific finding but most commonly due to chronic small vessel ischemic disease. No evidence of acute intracranial hemorrhage or extra-axial fluid collection. Basal ganglia lacunar infarcts bilaterally. No evidence of mass lesion, mass effect or mid line shift. The ventricles are symmetric in configuration and basal cisterns are patent. The calvarium is intact. Limited views of the paranasal sinuses are unremarkable. Mastoid air cells are well aerated and middle ear cavities are clear. ? CT/CT head/brain wo con IMPRESSION: No acute intracranial pathology. ECG Data ECG #1: Attestation: I personally reviewed and interpreted this ECG as follows: ECG interpretation date: 03/27/21 ECG interpretation time: 16:09 Interpretation: Sinus tachycardia with a rate of 109, normal MA, normal QRS, QT Discharge Plan Discharge Clinical Impression: Elevated lactic acid level, Sacral wound, Fever, Acute confusion Patient Disposition: Admitted As Inpatient
--- NOTE | 2021-03-27 15:50 | PHA.MEDREC ---
Pharmacy Consult ? Medication Reconciliation Pharmacy has completed the medication reconciliation. Med List from [facility].
[2021-03-27 15:51] LABS: MANUAL DIFF FLAG NO
[2021-03-27 15:52] LABS: Basophils Percent Auto 0.2 % (0-2); Eosinophils Percent Auto 0.4 % (0-4); Hematocrit 35.7 % (42.0-52.0); Hemoglobin 11.8 g/dl (14.0-18.0); Imm Gran Abs Auto 0.03 X10*3/uL (0.00-0.03); Imm Gran Pct Auto 0.3 % (0.0-0.4); Lymphocytes Absolute Auto 0.8 X10*3/uL (1.2-4.9); Lymphocytes Percent Auto 8.8 % (20-40); Mean Corpuscular HGB Conc 33.1 g/dl (31.0-36.0); Mean Corpuscular Hemoglobin 29.6 pg (27.0-33.0); Mean Corpuscular Volume 89.7 fL (80.0-98.0); Mean Platelet Volume 9.8 fL (9.4-12.4); Monocytes Percent Auto 10.4 % (2-11); Neutrophils Absolute Auto 7.6 x10*3/uL (2.0-8.3); Neutrophils Percent Auto 79.9 % (45-73); Platelet Count 224 X10*3/uL (160-400); Red Blood Count 3.98 X10*6/uL (4.60-5.80); Red Cell Distribution Width 13.9 % (11.0-16.0); White Blood Count 9.5 X10*3/uL (4.8-10.8)
[2021-03-27] MEDS: 0.9 % Sodium Chloride 2,100 ML 2100 ML IV (15:56)
[2021-03-27 16:05] LABS: Lactic Acid 2.1 mmol/L (0.5-2.0)
[2021-03-27 16:13] LABS: Alanine Aminotransferase 28 U/L (0-40); Alkaline Phosphatase 147 U/L (39-117); Anion Gap 12 (12-20); Aspartate Amino Transferase 26 U/L (5-37); Bilirubin Direct 0.3 mg/dL (0.0-0.5); Bilirubin Total 0.6 mg/dL (0.0-1.0); Blood Urea Nitrogen 16 mg/dL (9-16); Calcium 9.7 mg/dL (8.4-10.2); Carbon Dioxide 27 mmol/L (22-29); Chloride 111 mmol/L (96-108); Creatinine Clr Calc Pharmacy 71.7; Estimated Glomerular Filt Rate > 60; Glucose Random 111 mg/dL (60-115); Magnesium 1.6 mg/dL (1.6-2.6); Potassium 3.9 mmol/L (3.3-5.1); Sodium 146 mmol/L (135-145); Total Protein 7.1 g/dL (6.5-8.0)
[2021-03-27 16:18] LABS: COVID-19 Test Negative (Negative); IDNOW Serial# 9DD0AD1C
[2021-03-27] MEDS: cefTRIAXone sodium 1 GM in 0.9 % Sodium Chloride 50 ML IV (16:19)
[2021-03-27 16:59] VITALS: BP 121/61; PULSE 110; RESP 16; O2SAT 96
[2021-03-27 17:36] VITALS: BP 130/72; BP 132/76; PULSE 107; PULSE 108; RESP 12
[2021-03-27 17:48] VITALS: BP 132/73; PULSE 108; RESP 15; TEMP 36.9
[2021-03-27 17:48] LABS: Reflex Lactate? Lactic Acid Added
[2021-03-27 18:09] LABS: Glucose, Whole Blood 85 mg/dL (60-115)
[2021-03-27 18:17] VITALS: PULSE 102; RESP 16
[2021-03-27 18:31] LABS: Appearance Urine CLEAR; Color Urine YELLOW; Glucose Urine UA NEG (NEG); Leukocyte Esterase Urine NEG (NEG); Nitrite Urine NEG (NEG); Specific Gravity - Urine 1.025 (1.005-1.025); UACC Culture Trigger NO; Urine Blood 2+ (NEG); Urine Ketones NEG (NEG); Urine Protein NEG (NEG-TRACE)
[2021-03-27 18:36] LABS: Mucus Urine TRACE /LPF; Renal Epithelial Cells Urine TRACE /LPF; Squamous Epithelial Cell Urine TRACE /LPF
[2021-03-27 18:37] LABS: WBC Urine 0 /HPF (0-4)
[2021-03-27 18:55] LABS: ~Lactic Acid-LAB USE ONLY 1.3 mmol/L (0.5-2.0)
[2021-03-27] MEDS: iohexoL 350 MG/ML 100 ML INFUS..BTL 85 ML IV (19:24)
[2021-03-27 20:39] VITALS: BP 111/59; PULSE 93; RESP 11
[2021-03-27] MEDS: vancomycin HCL 1,250 MG in 0.9 % Sodium Chloride 250 ML 166.67 MG IV (20:48)
[2021-03-27 20:52] LABS: C Reactive Protein 3.12 mg/dL (< or = 0.50)
--- NOTE | 2021-03-27 21:02 | PC.NURSE ---
pt awake and alert, requesting food. pt oriented to person and place only. made aware that he will be admit to the hospital for infection.
[2021-03-27 21:03] LABS: Glucose, Whole Blood 101 mg/dL (60-115)
[2021-03-27 21:26] LABS: Erythrocyte Sedimentation Rate 17 MM/HR (0-15)
--- NOTE | 2021-03-27 22:18 | PC.NURSE ---
pt with history of dysphagia. complete nurse swallow screen. pt takes a little extra effort to swallow, however, no SOB, cough or wet voice following swallow. pt able to clear mouth of fluid. MD notified and ok'd pt to eat.
--- NOTE | 2021-03-27 22:28 | PC.NURSE ---
pt seated upright, eating tuna sandwich
--- NOTE | 2021-03-27 22:38 | PM.IMHP ---
History of Present Illness Date of Service: 03/27/21 Chief Complaint: Confusion 70-year-old male with a past medical history of hypertension, hyperlipidemia, diabetes, history of CVA with residual right-sided weakness, history chronic sacral decubitus ulcer presented from the assisted with a chief complaint of confusion. Per the staff patient was noted to be mildly confused and agitated today subsequently sent to the ER for further evaluation. At the time of my interview patient is con cooperative and answering questions fairly okay. Denies any chest pain palpitations lightheadedness dizziness, fevers and chills. Denies any GI or symptoms. Complains of pain in his low back; Review of all other systems is negative except mentioned above ER course: Patient noted to have cellulitis of his right leg, patient is pleasant, calm, cooperative; noted to have increased redness on his decubitus ulcer concerning for cellulitis; given IV antibiotics. Admitted for management. [facility] Social History Alcohol intake: never Use of substances other than those prescribed or required for medical reasons: No Advance Directives: Yes Advance Directives on File: Yes Advance Directives Date on File: 02/27/21 Meds Allergies Allergy/AdvReac Type Severity Reaction Status Date / Time No Known Allergies Allergy Verified 02/27/21 15:57 Active Medications: Current Medications Acetaminophen (Acetaminophen 325 Mg Tablet) 650 mg PO Q4H PRN PRN Reason: general discomfort Ascorbic Acid (Ascorbic Acid 500 Mg Tablet) 500 mg PO BID [facility] Aspirin (Aspirin Enteric Coated 81 Mg Tablet.) 81 mg PO DAILY [facility] Atorvastatin Calcium (Atorvastatin Calcium 80 Mg Tablet) 80 mg PO BEDTIME [facility] Bisacodyl (Bisacodyl 10 Mg Supp.Rect) 10 mg IA Q3D PRN PRN Reason: Constipation Clopidogrel Bisulfate (Clopidogrel Bisulfate 75 Mg Tablet) 75 mg PO DAILY [facility] Dextrose (Dextrose 50 % 25 Gm/50 Ml Vial) 25 gm IVPUSH Q15M PRN; Protocol PRN Reason: per Hypoglycemia Standing Ord. Docusate Sodium (Docusate Sodium 100 Mg Capsule) 100 mg PO BID [facility] Ergocalciferol (Ergocalciferol (Vitamin D2) 1,250 Mcg Capsule) 1,250 mcg PO WE@0900 [facility] Glucose (Glucose Gel 15 Gm Gel..Gram.) 15 gm PO Q15M PRN; Protocol PRN Reason: per Hypoglycemia Standing Ord. Glucose (Glucose Gel 15 Gm Gel..Gram.) 10 gm PO Q15M PRN PRN Reason: blood sugar <60 Vancomycin HCl 1,000 mg/ (Sodium Chloride) 270 mls @ 270 mls/hr IV Q12H [facility] Piperacillin Sod/Tazobactam (Sod 3.375 gm/ Sodium Chloride) 50 mls @ 100 mls/hr IV Q6H [facility] Insulin Human Lispro (Insulin Lispro 100 Unit/Ml 3 Ml Vial) 0 unit SUBCUT QIDACHS [facility]; Protocol Magnesium Hydroxide (Milk Of Magnesia 30 Ml Oral.Susp) 30 ml PO DAILY PRN PRN Reason: Constipation Mirtazapine (Mirtazapine 15 Mg Tablet) 15 mg PO BEDTIME [facility] Multivitamins/Vitamin C (Multivitamin Tablet) 1 tab PO DAILY [facility] Omeprazole (Omeprazole 20 Mg Capsule.Dr) 20 mg PO DAILY@0630 [facility] Oxycodone HCl (Oxycodone Hcl Immed Release 5 Mg Tablet) 5 mg PO Q12H PRN PRN Reason: Pain (Scale Score 4-6) Pharmacy Consult (Consult Rx Perform Med Rec) 1 each MISCELLANE ONCE PRN PRN Reason: Consult order Pharmacy Consult (Consult Rx Vancomycin Dosing) 1 each MISCELLANE DAILY PRN PRN Reason: Consult order Pharmacy Consult (Consult Rx Vancomycin Dosing) 1 each MISCELLANE DAILY PRN PRN Reason: Consult order Polyethylene Glycol (Polyethylene Glycol 3350 17 Gm Powd.Pack) 17 gm PO DAILY [facility] Sodium Biphosphate/Sodium Phosphate (Sodium Phosphate,[place]-Dibasic 133 Ml Enema) 118 ml IA Q3D PRN PRN Reason: Constipation Thiamine HCl (Thiamine Hcl 100 Mg Tablet) 100 mg PO DAILY [facility] Home Medications Medication Instructions Recorded Confirmed Last Taken Type acetaminophen 325 mg tablet 650 mg PO Q4H PRN 03/27/21 03/27/21 Unknown History ascorbic acid (vitamin C) 500 mg 500 mg PO BID 03/27/21 03/27/21 Unknown History tablet (Vitamin C) aspirin 81 mg tablet,delayed 81 mg PO DAILY 03/27/21 03/27/21 Unknown History release atorvastatin 80 mg tablet 80 mg PO BEDTIME 03/27/21 03/27/21 Unknown History bisacodyl 10 mg rectal suppository 10 mg IA Q3D PRN 03/27/21 03/27/21 Unknown History (Dulcolax (bisacodyl)) clopidogrel 75 mg tablet 75 mg PO DAILY 03/27/21 03/27/21 Unknown History dextrose 40 % oral gel (Glucose 10 g PO Q15M PRN 03/27/21 03/27/21 Unknown History Gel) docusate sodium 100 mg capsule 100 mg PO BID 03/27/21 03/27/21 Unknown History (Colace) ergocalciferol (vitamin D2) 1,250 1,250 mcg PO WE@0900 03/27/21 03/27/21 Unknown History mcg (50,000 unit) capsule glucagon HCl 1 mg solution for 1 mg SUBCUT Q20M PRN 03/27/21 03/27/21 Unknown History injection (Glucagon (HCl) Emergency Kit) insulin lispro 100 unit/mL See Protocol SUBCUT TIDAC 03/27/21 03/27/21 Unknown History [facility] Insulin lispro) magnesium hydroxide 400 mg/5 mL 30 ml PO DAILY PRN 03/27/21 03/27/21 Unknown History oral suspension (Milk of Magnmangofizz jobs) miconazole nitrate 2 % topical 1 appl TOPICAL BID 03/27/21 03/27/21 Unknown History cream mirtazapine 15 mg tablet 15 mg PO BEDTIME 03/27/21 03/27/21 Unknown History multivitamin 1 tab PO DAILY 03/27/21 03/27/21 Unknown History nystatin 100,000 unit/gram topical 1 appl TOPICAL BID 03/27/21 03/27/21 Unknown History powder omeprazole 20 mg capsule,delayed 20 mg PO DAILY@0630 03/27/21 03/27/21 Unknown History release ondansetron HCl 4 mg tablet 4 mg PO Q6H PRN 03/27/21 03/27/21 Unknown History oxycodone 5 mg tablet 5 mg PO Q12H PRN 03/27/21 03/27/21 Unknown History polyethylene glycol 3350 17 17 g PO DAILY 03/27/21 03/27/21 Unknown History gram/dose oral powder (Miralax) sodium phosphates 19 gram-7 118 ml IA Q3D PRN 03/27/21 03/27/21 Unknown History gram/118 mL enema (Fleet Enema) thiamine HCl (vitamin B1) 100 mg 100 mg PO DAILY 03/27/21 03/27/21 Unknown History tablet Physical Exam Vital Signs and Narrative: Vital Signs: Last Vital Signs Temp 98.5 F 03/27/21 17:48 Pulse 93 03/27/21 20:39 Resp 11 L 03/27/21 20:39 BP 111/59 L 03/27/21 20:39 Pulse Ox 96 03/27/21 16:59 Body Mass Index 27.4 Gen: Appears be in no acute distress HEENT: NCAT, Moist mucosa. Pulmonary: Vesicular breath sounds, fair air entry CVS: Normal S1-S2 Abdomen: BS+, Soft, Nontender; sacral decubitus ulcer is more erythematous and warm compared to prior images. Mild surrounding hyperemia noted Extremities: Warm well perfused; right hand contracted prior CVA; right like medial side noted to have warmth, redness consistent with cellulitis; Neuro: Alert and awake. Results Labs CBC and Chem 7: 03/27/21 15:45 03/27/21 15:44 Labs: Laboratory Results - last 24 hr 03/27/21 03/27/21 03/27/21 15:44 15:44 15:45 MCV 89.7 MCH 29.6 MCHC 33.1 RDW 13.9 Plt Count 224 MPV 9.8 Immature Gran % (Auto) 0.3 Neut % (Auto) 79.9 H Lymph % (Auto) 8.8 L [place] % (Auto) 10.4 Eos % (Auto) 0.4 Baso % (Auto) 0.2 Lymph # (Auto) 0.8 L [place] # (Auto) 1.0 Eos # (Auto) 0.0 Baso # (Auto) 0.0 Abs Immat Gran (auto) 0.03 Absolute Neuts (auto) 7.6 Absolute Nucleated RBC 0.000 Nucleated RBC % (auto) 0.0 ESR Anion Gap 12 Estim Creat Clear Calc 71.7 Estimated GFR > 60 POC Glucose Random Glucose 111 Lactic Acid 2.1 H* Lactic Acid Fup @ 2Hr Calcium 9.7 Magnesium 1.6 Total Bilirubin 0.6 Direct Bilirubin 0.3 AST 26 ALT 28 Alkaline Phosphatase 147 H C-Reactive Protein 3.12 H Total Protein 7.1 Albumin 4.0 Urine Color Urine Appearance Urine pH Ur Specific [place] Urine Protein Urine Glucose (UA) Urine Ketones Urine Blood Urine Nitrite Ur Leukocyte Esterase Urine RBC Urine WBC Ur Squamous Epith Cells Ur Renal Epithelial Cell Urine Bacteria Urine Mucus COVID-19 (ÓSCAR) COVID-19 Clin Com 03/27/21 03/27/21 03/27/21 15:45 15:45 17:59 MCV MCH MCHC RDW Plt Count MPV Immature Gran % (Auto) Neut % (Auto) Lymph % (Auto) [place] % (Auto) Eos % (Auto) Baso % (Auto) Lymph # (Auto) [place] # (Auto) Eos # (Auto) Baso # (Auto) Abs Immat Gran (auto) Absolute Neuts (auto) Absolute Nucleated RBC Nucleated RBC % (auto) ESR 17 H Anion Gap Estim Creat Clear Calc Estimated GFR POC Glucose 85 Random Glucose Lactic Acid Lactic Acid Fup @ 2Hr Calcium Magnesium Total Bilirubin Direct Bilirubin AST ALT Alkaline Phosphatase C-Reactive Protein Total Protein Albumin Urine Color Urine Appearance Urine pH Ur Specific [place] Urine Protein Urine Glucose (UA) Urine Ketones Urine Blood Urine Nitrite Ur Leukocyte Esterase Urine RBC Urine WBC Ur Squamous Epith Cells Ur Renal Epithelial Cell Urine Bacteria Urine Mucus COVID-19 (ÓSCAR) Negative COVID-19 Clin Com See Note 03/27/21 03/27/21 03/27/21 18:24 18:36 21:00 MCV MCH MCHC RDW Plt Count MPV Immature Gran % (Auto) Neut % (Auto) Lymph % (Auto) [place] % (Auto) Eos % (Auto) Baso % (Auto) Lymph # (Auto) [place] # (Auto) Eos # (Auto) Baso # (Auto) Abs Immat Gran (auto) Absolute Neuts (auto) Absolute Nucleated RBC Nucleated RBC % (auto) ESR Anion Gap Estim Creat Clear Calc Estimated GFR POC Glucose 101 Random Glucose Lactic Acid Lactic Acid Fup @ 2Hr 1.3 Calcium Magnesium Total Bilirubin Direct Bilirubin AST ALT Alkaline Phosphatase C-Reactive Protein Total Protein Albumin Urine Color YELLOW Urine Appearance CLEAR Urine pH 6.0 Ur Specific [place] 1.025 Urine Protein NEG Urine Glucose (UA) NEG Urine Ketones NEG Urine Blood 2+ H Urine Nitrite NEG Ur Leukocyte Esterase NEG Urine RBC 10-14 H Urine WBC 0 Ur Squamous Epith Cells TRACE Ur Renal Epithelial Cell TRACE Urine Bacteria NONE Urine Mucus TRACE COVID-19 (ÓSCAR) COVID-19 Clin Com Imaging Radiologist's Impressions: Impressions Chest X-Ray 03/27/21 15:24 IMPRESSION: Unremarkable examination. Head CT 03/27/21 16:26 IMPRESSION: No acute intracranial pathology. Pelvis CT 03/27/21 16:26 IMPRESSION: Sacral decubitus ulcer with no evidence of an abscess. Sclerosis of the underlying coccyx appears similar to the 02/27/2021 study. No acute osseous abnormality is evident. MRI would be a more sensitive evaluation for the identification of early or mild osteomyelitis. Rectal distention with stool and possible stercoral colitis, similar to previous. Assessment and Plan (1) Sacral wound: Status: Acute 70-year-old male with a past medical history of hypertension, hyperlipidemia, diabetes, history of CVA with residual right-sided weakness, history chronic sacral decubitus ulcer presented from the assisted with a chief complaint of confusion. Confusion: Likely toxic metabolic encephalopathy. Med dull status improving. Patient is calm and cooperative currently. Right leg cellulitis/decubitus ulcer/cellulitis: Continue IV vancomycin and Zosyn. Id consult. Will also consult General surgery. Diabetes: Insulin sliding scale History of CVA with residual right-sided weakness: Stable. Continue home aspirin, statin. For all other chronic conditions, home medications will be continued DVT prophylaxis: Subcu heparin Code status: DNR/DNI-patient has MOLST form Quality Stroke Does the patient have a stroke diagnosis?: No VTE Prior VTE?: No VTE Risk Level:: Medical - moderate - high VTE Device Contraindication: Treatment Not Indicated VTE Drug Contraindication: N/A - Med Ordered
--- NOTE | 2021-03-27 22:54 | PHA.PROG ---
Admission Date/Time: March 27, 2021 22:36 Indication:CELLULITIS Weight in k.368 kg Adjusted body weight in K.2 KG Lavina body weight in K.7 KG Obesity Dosing Indication % IBW: Serum Creatinine - Last 168 Hours 03/27/21 15:44 Creatinine 0.93 Estimated CrCl and GFR - Last 168 Hours 03/27/21 15:44 Estim Creat Clear Calc 71.7 Estimated GFR > 60 Vancomycin Loading Dose: 1250 MG X 1 GIVEN IN ED Current Vancomycin Dosing Regimen: 1500 MG Q24H Vancomycin Monitoring using AUC goal of 400 - 600 range with trough as surrogate marker: PREDICTED AUC OF 430, PREDICTED TROUGH 11.7 Date and Time for next Vancomycin Level to be drawn: RANDOM BEFORE [address] RD DOSE ON 03/29/21 @1900 Pharmacist Comments on Vancomycin Plan: Vancomycin dosing will take advantage of [employer] as a clinical decision support tool that uses Bayesian modeling to calculate individual patient's pharmacokinetic parameters and forecast the patient's drug concentration time course with the target goal AUC 24 range of 400 - 600 mg/L/hr.
[2021-03-28 01:08] VITALS: BP 122/66; PULSE 105; RESP 12; O2SAT 97
[2021-03-28] MEDS: Piperacillin Sodium/Tazobactam 3.375 GM in 0.9 % Sodium Chloride 50 ML IV ×3 (05:18→19:06)
[2021-03-28 06:19] LABS: MANUAL DIFF FLAG NO
[2021-03-28 06:26] LABS: Basophils Absolute Auto 0.1 X10*3/uL (0.0-0.2); Basophils Percent Auto 0.8 % (0-2); Eosinophils Absolute Auto 0.6 X10*3/uL (0.0-0.4); Eosinophils Percent Auto 10.6 % (0-4); Hematocrit 36.1 % (42.0-52.0); Hemoglobin 11.4 g/dl (14.0-18.0); Imm Gran Abs Auto 0.01 X10*3/uL (0.00-0.03); Imm Gran Pct Auto 0.2 % (0.0-0.4); Lymphocytes Percent Auto 16.1 % (20-40); Mean Corpuscular HGB Conc 31.6 g/dl (31.0-36.0); Mean Corpuscular Volume 91.9 fL (80.0-98.0); Mean Platelet Volume 10.2 fL (9.4-12.4); Monocytes Absolute Auto 0.6 X10*3/uL (0.1-1.2); Monocytes Percent Auto 9.7 % (2-11); Neutrophils Absolute Auto 3.7 x10*3/uL (2.0-8.3); Neutrophils Percent Auto 62.6 % (45-73); Platelet Count 197 X10*3/uL (160-400); Red Blood Count 3.93 X10*6/uL (4.60-5.80); Red Cell Distribution Width 13.9 % (11.0-16.0)
[2021-03-28 06:35] LABS: Creatinine Clr Calc Pharmacy 85.6; Estimated Glomerular Filt Rate > 60
[2021-03-28 06:37] LABS: Anion Gap 15 (12-20); Blood Urea Nitrogen 11 mg/dL (9-16); Calcium 8.9 mg/dL (8.4-10.2); Carbon Dioxide 23 mmol/L (22-29); Chloride 112 mmol/L (96-108); Creatinine Clr Calc Pharmacy 85.6; Estimated Glomerular Filt Rate > 60; Glucose Random 105 mg/dL (60-115); Potassium 3.9 mmol/L (3.3-5.1); Sodium 146 mmol/L (135-145)
--- NOTE | 2021-03-28 06:49 | HE.PHANOTE ---
Vancomycin Consult - Amend Renal function improvement. SCr decrease from 0.93 to 0.78. Expected AUC with 1500 mg Q24HR would be subtherapuetic at 378. Changed Vanco to 1000 mg Q12H which created an expected AUC of 499 and trough of 15.9. New trough to be drawn 03/29 @ 0900
[2021-03-28 07:05] LABS: Glucose, Whole Blood 99 mg/dL (60-115)
[2021-03-28] MEDS: Aspirin Enteric Coated 81 MG TABLET.DR PO (09:06)
[2021-03-28] MEDS: Clopidogrel Bisulfate 75 MG TABLET PO (09:06)
[2021-03-28] MEDS: Thiamine HCL 100 MG TABLET PO (09:07)
[2021-03-28] MEDS: Multivitamin TABLET 1 TAB PO (09:07)
[2021-03-28] MEDS: Docusate Sodium 100 MG CAPSULE PO ×2 (09:07→22:31)
[2021-03-28] MEDS: polyethylene glycoL 3350 17 GM POWD.PACK PO (09:07)
[2021-03-28] MEDS: Ascorbic Acid 500 MG TABLET PO ×2 (09:07→22:31)
[2021-03-28] MEDS: Omeprazole 20 MG CAPSULE.DR PO (09:07)
[2021-03-28] MEDS: vancomycin HCL 1,000 MG in 0.9 % Sodium Chloride 250 ML 270 MG IV ×2 (09:08→23:45)
[2021-03-28 09:18] LABS: Glucose, Whole Blood 122 mg/dL (60-115)
--- NOTE | 2021-03-28 10:04 | P.PNIM_ITS ---
Subjective Subjective Date of Service: 03/28/21 Interval History: no fever/chills back pain improved feels better Review of Systems Review of Systems: Yes all other systems are reviewed and are negative Physical Exam Vital Signs: Vital Signs: Last Vital Signs Temp 98.5 F 03/27/21 17:48 Pulse 105 H 03/28/21 01:08 Resp 12 03/28/21 01:08 BP 122/66 03/28/21 01:08 Pulse Ox 97 03/28/21 01:08 Body Mass Index 27.4 Gen: in no acute distress HEENT: sclera anicteric, moist mucus membranes Neck: supple Lungs: clear to auscultation bilaterally Heart: regular rate and rhythm, no murmurs Abd: soft, non-tender, non-distended Ext: no edema Skin: warm/well-perfused, RLE with well-demarcated area of erythema without any fluctuance. sacral decubitus ulcer Neuro: alert and oriented to self, R hemiparesis with contracture of R hand Psych: appropriate affect ? Objective Data Active Medications Acetaminophen (Acetaminophen 325 Mg Tablet) 650 mg PO Q4H PRN PRN Reason: general discomfort Ascorbic Acid (Ascorbic Acid 500 Mg Tablet) 500 mg PO BID [facility] Last Admin: 03/28/21 09:07 Dose: 500 mg Documented by: MARIKA Aspirin (Aspirin Enteric Coated 81 Mg Tablet.) 81 mg PO DAILY [facility] Last Admin: 03/28/21 09:06 Dose: 81 mg Documented by: MARIKA Atorvastatin Calcium (Atorvastatin Calcium 80 Mg Tablet) 80 mg PO BEDTIME [facility] Bisacodyl (Bisacodyl 10 Mg Supp.Rect) 10 mg RI Q3D PRN PRN Reason: Constipation Clopidogrel Bisulfate (Clopidogrel Bisulfate 75 Mg Tablet) 75 mg PO DAILY [facility] Last Admin: 03/28/21 09:06 Dose: 75 mg Documented by: MARIKA Dextrose (Dextrose 50 % 25 Gm/50 Ml Vial) 25 gm IVPUSH Q15M PRN; Protocol PRN Reason: per Hypoglycemia Standing Ord. Docusate Sodium (Docusate Sodium 100 Mg Capsule) 100 mg PO BID [facility] Last Admin: 03/28/21 09:07 Dose: 100 mg Documented by: MARIKA Ergocalciferol (Ergocalciferol (Vitamin D2) 1,250 Mcg Capsule) 1,250 mcg PO WE@00 [facility] Glucose (Glucose Gel 15 Gm Gel..Gram.) 15 gm PO Q15M PRN; Protocol PRN Reason: per Hypoglycemia Standing Ord. Heparin Sodium (Porcine) (Heparin Sodium,Porcine 5,000 Unit/Ml Vial) 5,000 unit SUBCUT Q12H [facility] Last Admin: 03/28/21 01:17 Dose: Not Given Documented by: CALLY Non-Admin Reason: Patient Refused Piperacillin Sod/Tazobactam (Sod 3.375 gm/ Sodium Chloride) 50 mls @ 100 mls/hr IV Q6H [facility] Last Admin: 03/28/21 05:18 Dose: 100 mls/hr Documented by: CALLY Vancomycin HCl 1,000 mg/ (Sodium Chloride) 270 mls @ 270 mls/hr IV Q12H [facility] Last Admin: 03/28/21 09:08 Dose: 270 mls/hr Documented by: MARIKA Insulin Human Lispro (Insulin Lispro 100 Unit/Ml 3 Ml Vial) 0 unit SUBCUT QIDACHS [facility]; Protocol Last Admin: 03/28/21 09:25 Dose: Not Given Documented by: MARIKA Non-Admin Reason: No Insulin Coverage Magnesium Hydroxide (Milk Of Magnesia 30 Ml Oral.Susp) 30 ml PO DAILY PRN PRN Reason: Constipation Melatonin (Melatonin 3 Mg Tablet) 6 mg PO BEDTIME PRN PRN Reason: Insomnia Mirtazapine (Mirtazapine 15 Mg Tablet) 15 mg PO BEDTIME [facility] Multivitamins/Vitamin C (Multivitamin Tablet) 1 tab PO DAILY [facility] Last Admin: 03/28/21 09:07 Dose: 1 tab Documented by: MARIKA Omeprazole (Omeprazole 20 Mg Capsule.) 20 mg PO DAILY@0630 [facility] Last Admin: 03/28/21 09:07 Dose: 20 mg Documented by: MARIKA Oxycodone HCl (Oxycodone Hcl Immed Release 5 Mg Tablet) 5 mg PO Q12H PRN PRN Reason: Pain (Scale Score 4-6) Pharmacy Consult (Consult Rx Perform Med Rec) 1 each MISCELLANE ONCE PRN PRN Reason: Consult order Pharmacy Consult (Consult Rx Vancomycin Dosing) 1 each MISCELLANE DAILY PRN PRN Reason: Consult order Polyethylene Glycol (Polyethylene Glycol 3350 17 Gm Powd.Pack) 17 gm PO DAILY [facility] Last Admin: 03/28/21 09:07 Dose: 17 gm Documented by: MARIKA Senna (Sennosides 8.6 Mg Tablet) 17.2 mg PO BEDTIME PRN PRN Reason: Constipation Sodium Biphosphate/Sodium Phosphate (Sodium Phosphate,[place]-Dibasic 133 Ml Enema) 118 ml RI Q3D PRN PRN Reason: Constipation Sodium Chloride (0.9 % Sodium Chloride Flush 3 Ml Syringe) 3 ml IVFLUSH QSHIFT [facility] Last Admin: 03/28/21 09:25 Dose: Not Given Documented by: MARIKA Non-Admin Reason: IV Running Thiamine HCl (Thiamine Hcl 100 Mg Tablet) 100 mg PO DAILY [facility] Last Admin: 03/28/21 09:07 Dose: 100 mg Documented by: MARIKA Labs CBC & Chem 7: 03/28/21 05:57 03/28/21 05:57 Labs: Laboratory Results - last 24 hr 03/27/21 03/27/21 03/27/21 15:44 15:44 15:45 MCV 89.7 MCH 29.6 MCHC 33.1 RDW 13.9 Plt Count 224 MPV 9.8 Immature Gran % (Auto) 0.3 Neut % (Auto) 79.9 H Lymph % (Auto) 8.8 L [place] % (Auto) 10.4 Eos % (Auto) 0.4 Baso % (Auto) 0.2 Lymph # (Auto) 0.8 L [place] # (Auto) 1.0 Eos # (Auto) 0.0 Baso # (Auto) 0.0 Abs Immat Gran (auto) 0.03 Absolute Neuts (auto) 7.6 Absolute Nucleated RBC 0.000 Nucleated RBC % (auto) 0.0 ESR Anion Gap 12 Estim Creat Clear Calc 71.7 Estimated GFR > 60 POC Glucose Random Glucose 111 Lactic Acid 2.1 H* Lactic Acid Fup @ 2Hr Calcium 9.7 Magnesium 1.6 Total Bilirubin 0.6 Direct Bilirubin 0.3 AST 26 ALT 28 Alkaline Phosphatase 147 H C-Reactive Protein 3.12 H Total Protein 7.1 Albumin 4.0 Urine Color Urine Appearance Urine pH Ur Specific [place] Urine Protein Urine Glucose (UA) Urine Ketones Urine Blood Urine Nitrite Ur Leukocyte Esterase Urine RBC Urine WBC Ur Squamous Epith Cells Ur Renal Epithelial Cell Urine Bacteria Urine Mucus COVID-19 (ÓSCAR) COVID-19 Clin Com 03/27/21 03/27/21 03/27/21 15:45 15:45 17:59 MCV MCH MCHC RDW Plt Count MPV Immature Gran % (Auto) Neut % (Auto) Lymph % (Auto) [place] % (Auto) Eos % (Auto) Baso % (Auto) Lymph # (Auto) [place] # (Auto) Eos # (Auto) Baso # (Auto) Abs Immat Gran (auto) Absolute Neuts (auto) Absolute Nucleated RBC Nucleated RBC % (auto) ESR 17 H Anion Gap Estim Creat Clear Calc Estimated GFR POC Glucose 85 Random Glucose Lactic Acid Lactic Acid Fup @ 2Hr Calcium Magnesium Total Bilirubin Direct Bilirubin AST ALT Alkaline Phosphatase C-Reactive Protein Total Protein Albumin Urine Color Urine Appearance Urine pH Ur Specific [place] Urine Protein Urine Glucose (UA) Urine Ketones Urine Blood Urine Nitrite Ur Leukocyte Esterase Urine RBC Urine WBC Ur Squamous Epith Cells Ur Renal Epithelial Cell Urine Bacteria Urine Mucus COVID-19 (ÓSCAR) Negative COVID-19 Clin Com See Note 03/27/21 03/27/21 03/27/21 18:24 18:36 21:00 MCV MCH MCHC RDW Plt Count MPV Immature Gran % (Auto) Neut % (Auto) Lymph % (Auto) [place] % (Auto) Eos % (Auto) Baso % (Auto) Lymph # (Auto) [place] # (Auto) Eos # (Auto) Baso # (Auto) Abs Immat Gran (auto) Absolute Neuts (auto) Absolute Nucleated RBC Nucleated RBC % (auto) ESR Anion Gap Estim Creat Clear Calc Estimated GFR POC Glucose 101 Random Glucose Lactic Acid Lactic Acid Fup @ 2Hr 1.3 Calcium Magnesium Total Bilirubin Direct Bilirubin AST ALT Alkaline Phosphatase C-Reactive Protein Total Protein Albumin Urine Color YELLOW Urine Appearance CLEAR Urine pH 6.0 Ur Specific [place] 1.025 Urine Protein NEG Urine Glucose (UA) NEG Urine Ketones NEG Urine Blood 2+ H Urine Nitrite NEG Ur Leukocyte Esterase NEG Urine RBC 10-14 H Urine WBC 0 Ur Squamous Epith Cells TRACE Ur Renal Epithelial Cell TRACE Urine Bacteria NONE Urine Mucus TRACE COVID-19 (ÓSCAR) COVID-19 Clin Com 03/28/21 03/28/21 03/28/21 05:57 05:57 05:57 MCV 91.9 MCH 29.0 MCHC 31.6 RDW 13.9 Plt Count 197 MPV 10.2 Immature Gran % (Auto) 0.2 Neut % (Auto) 62.6 Lymph % (Auto) 16.1 L [place] % (Auto) 9.7 Eos % (Auto) 10.6 H Baso % (Auto) 0.8 Lymph # (Auto) 1.0 L [place] # (Auto) 0.6 Eos # (Auto) 0.6 H Baso # (Auto) 0.1 Abs Immat Gran (auto) 0.01 Absolute Neuts (auto) 3.7 Absolute Nucleated RBC 0.000 Nucleated RBC % (auto) 0.0 ESR Anion Gap 15 Estim Creat Clear Calc 85.6 85.6 Estimated GFR > 60 > 60 POC Glucose Random Glucose 105 Lactic Acid Lactic Acid Fup @ 2Hr Calcium 8.9 D Magnesium Total Bilirubin Direct Bilirubin AST ALT Alkaline Phosphatase C-Reactive Protein Total Protein Albumin Urine Color Urine Appearance Urine pH Ur Specific [place] Urine Protein Urine Glucose (UA) Urine Ketones Urine Blood Urine Nitrite Ur Leukocyte Esterase Urine RBC Urine WBC Ur Squamous Epith Cells Ur Renal Epithelial Cell Urine Bacteria Urine Mucus COVID-19 (ÓSCAR) COVID-19 Clin Com 03/28/21 03/28/21 07:00 09:05 MCV MCH MCHC RDW Plt Count MPV Immature Gran % (Auto) Neut % (Auto) Lymph % (Auto) [place] % (Auto) Eos % (Auto) Baso % (Auto) Lymph # (Auto) [place] # (Auto) Eos # (Auto) Baso # (Auto) Abs Immat Gran (auto) Absolute Neuts (auto) Absolute Nucleated RBC Nucleated RBC % (auto) ESR Anion Gap Estim Creat Clear Calc Estimated GFR POC Glucose 99 122 H Random Glucose Lactic Acid Lactic Acid Fup @ 2Hr Calcium Magnesium Total Bilirubin Direct Bilirubin AST ALT Alkaline Phosphatase C-Reactive Protein Total Protein Albumin Urine Color Urine Appearance Urine pH Ur Specific [place] Urine Protein Urine Glucose (UA) Urine Ketones Urine Blood Urine Nitrite Ur Leukocyte Esterase Urine RBC Urine WBC Ur Squamous Epith Cells Ur Renal Epithelial Cell Urine Bacteria Urine Mucus COVID-19 (ÓSCAR) COVID-19 Clin Com Assessment and Plan (1) Sacral wound: Status: Acute (2) Cellulitis: Status: Acute Assessment and Plan: hospital d#2 70yo M long-term SNF resident [[facility]] with hx CVA with RLE hemiparesis, HTN, HLD, DM2, chronic sacral decibuts ulcer presented with AMS/agitation # nonpurulent cellulitis - vanco + pip/renee d#2, follow BCx, ID consult # sacral decubitus ulcer - ID + gen surg consults pending # toxic/metabolic encephalopathy - resolved with infection treatment # prior CVA - DAPT + statin for secondary prevention # DM2 - correction-dose lispro # VTE ppx - UFH Quality Stroke Does the patient have a stroke diagnosis?: No VTE Prior VTE?: No VTE Risk Level:: Medical - moderate - high VTE Device Contraindication: Treatment Not Indicated VTE Drug Contraindication: N/A - Med Ordered
--- NOTE | 2021-03-28 10:20 | PC.NURSE ---
pt turned, repositioned, filomena with urine, linens changed.
[2021-03-28 13:48] LABS: Glucose, Whole Blood 119 mg/dL (60-115)
[2021-03-28] MEDS: Heparin Sodium,Porcine 5,000 UNIT/ML VIAL 5000 UNIT SUBCUT ×2 (13:51→23:44)
[2021-03-28] MEDS: 0.9 % Sodium Chloride Flush 3 ML SYRINGE IVFLUSH (13:54)
--- NOTE | 2021-03-28 13:56 | PM.CNGS ---
History of Present Illness Consult details Consult date: 03/28/21 Reason for consult: wound care Requesting physician: Theodore Garcia Narrative: This is a 70-year-old male with a history of CVA and right hemiparesis who was transported to the emergency department from his care home facility yesterday for evaluation of altered mental status. Past history is also significant for diabetes mellitus and vertebral osteomyelitis as well as chronic sacral decubitus ulcer. General surgery service is asked to evaluate the sacral ulcer as well as an area of erythema involving the right lower extremity. The patient's speech is dysarthric. There is some confusion, but he does report that the sacral ulcer has been present for a long time. He also reports that he bumped his right leg recently when transferring at the care home facility. He offered no complaints of pain currently. Review of Systems Review of Systems: Yes Unobtainable due to mental condition (Unreliable but offers no complaint of chest pain, SOB, abdominal pain) PMFSH Social History Social History Alcohol intake: never Use of substances other than those prescribed or required for medical reasons: No Advance Directives: Yes Advance Directives on File: Yes Advance Directives Date on File: 02/27/21 Meds Allergies Allergy/AdvReac Type Severity Reaction Status Date / Time No Known Allergies Allergy Verified 02/27/21 15:57 Active Medications: Current Medications Acetaminophen (Acetaminophen 325 Mg Tablet) 650 mg PO Q4H PRN PRN Reason: general discomfort Ascorbic Acid (Ascorbic Acid 500 Mg Tablet) 500 mg PO BID [facility] Last Admin: 03/28/21 09:07 Dose: 500 mg Documented by: Aspirin (Aspirin Enteric Coated 81 Mg Tablet.) 81 mg PO DAILY [facility] Last Admin: 03/28/21 09:06 Dose: 81 mg Documented by: Atorvastatin Calcium (Atorvastatin Calcium 80 Mg Tablet) 80 mg PO BEDTIME [facility] Bisacodyl (Bisacodyl 10 Mg Supp.Rect) 10 mg MD Q3D PRN PRN Reason: Constipation Clopidogrel Bisulfate (Clopidogrel Bisulfate 75 Mg Tablet) 75 mg PO DAILY [facility] Last Admin: 03/28/21 09:06 Dose: 75 mg Documented by: Dextrose (Dextrose 50 % 25 Gm/50 Ml Vial) 25 gm IVPUSH Q15M PRN; Protocol PRN Reason: per Hypoglycemia Standing Ord. Docusate Sodium (Docusate Sodium 100 Mg Capsule) 100 mg PO BID [facility] Last Admin: 03/28/21 09:07 Dose: 100 mg Documented by: Ergocalciferol (Ergocalciferol (Vitamin D2) 1,250 Mcg Capsule) 1,250 mcg PO WE@0900 [facility] Glucose (Glucose Gel 15 Gm Gel..Gram.) 15 gm PO Q15M PRN; Protocol PRN Reason: per Hypoglycemia Standing Ord. Heparin Sodium (Porcine) (Heparin Sodium,Porcine 5,000 Unit/Ml Vial) 5,000 unit SUBCUT Q12H [facility] Last Admin: 03/28/21 13:51 Dose: 5,000 unit Documented by: Piperacillin Sod/Tazobactam (Sod 3.375 gm/ Sodium Chloride) 50 mls @ 100 mls/hr IV Q6H [facility] Last Admin: 03/28/21 13:51 Dose: 100 mls/hr Documented by: Vancomycin HCl 1,000 mg/ (Sodium Chloride) 270 mls @ 270 mls/hr IV Q12H [facility] Last Admin: 03/28/21 09:08 Dose: 270 mls/hr Documented by: Insulin Human Lispro (Insulin Lispro 100 Unit/Ml 3 Ml Vial) 0 unit SUBCUT QIDACHS [facility]; Protocol Last Admin: 03/28/21 13:53 Dose: Not Given Documented by: Magnesium Hydroxide (Milk Of Magnesia 30 Ml Oral.Susp) 30 ml PO DAILY PRN PRN Reason: Constipation Melatonin (Melatonin 3 Mg Tablet) 6 mg PO BEDTIME PRN PRN Reason: Insomnia Mirtazapine (Mirtazapine 15 Mg Tablet) 15 mg PO BEDTIME [facility] Multivitamins/Vitamin C (Multivitamin Tablet) 1 tab PO DAILY [facility] Last Admin: 03/28/21 09:07 Dose: 1 tab Documented by: Nystatin (Nystatin Powder 15 Gm Bottle) 1 appl TOPICAL BID [facility]; Protocol Omeprazole (Omeprazole 20 Mg Capsule.) 20 mg PO DAILY@0630 [facility] Last Admin: 03/28/21 09:07 Dose: 20 mg Documented by: Oxycodone HCl (Oxycodone Hcl Immed Release 5 Mg Tablet) 5 mg PO Q12H PRN PRN Reason: Pain (Scale Score 4-6) Pharmacy Consult (Consult Rx Perform Med Rec) 1 each MISCELLANE ONCE PRN PRN Reason: Consult order Pharmacy Consult (Consult Rx Vancomycin Dosing) 1 each MISCELLANE DAILY PRN PRN Reason: Consult order Polyethylene Glycol (Polyethylene Glycol 3350 17 Gm Powd.Pack) 17 gm PO DAILY [facility] Last Admin: 03/28/21 09:07 Dose: 17 gm Documented by: Senna (Sennosides 8.6 Mg Tablet) 17.2 mg PO BEDTIME PRN PRN Reason: Constipation Sodium Biphosphate/Sodium Phosphate (Sodium Phosphate,[place]-Dibasic 133 Ml Enema) 118 ml MD Q3D PRN PRN Reason: Constipation Sodium Chloride (0.9 % Sodium Chloride Flush 3 Ml Syringe) 3 ml IVFLUSH QSHIFT [facility] Last Admin: 03/28/21 13:54 Dose: 3 ml Documented by: Thiamine HCl (Thiamine Hcl 100 Mg Tablet) 100 mg PO DAILY [facility] Last Admin: 03/28/21 09:07 Dose: 100 mg Documented by: Home Medications Medication Instructions Recorded Confirmed Last Taken Type acetaminophen 325 mg tablet 650 mg PO Q4H PRN 03/27/21 03/27/21 Unknown History ascorbic acid (vitamin C) 500 mg 500 mg PO BID 03/27/21 03/27/21 Unknown History tablet (Vitamin C) aspirin 81 mg tablet,delayed 81 mg PO DAILY 03/27/21 03/27/21 Unknown History release atorvastatin 80 mg tablet 80 mg PO BEDTIME 03/27/21 03/27/21 Unknown History bisacodyl 10 mg rectal suppository 10 mg MD Q3D PRN 03/27/21 03/27/21 Unknown History (Dulcolax (bisacodyl)) clopidogrel 75 mg tablet 75 mg PO DAILY 03/27/21 03/27/21 Unknown History dextrose 40 % oral gel (Glucose 10 g PO Q15M PRN 03/27/21 03/27/21 Unknown History Gel) docusate sodium 100 mg capsule 100 mg PO BID 03/27/21 03/27/21 Unknown History (Colace) ergocalciferol (vitamin D2) 1,250 1,250 mcg PO WE@0900 03/27/21 03/27/21 Unknown History mcg (50,000 unit) capsule glucagon HCl 1 mg solution for 1 mg SUBCUT Q20M PRN 03/27/21 03/27/21 Unknown History injection (Glucagon (HCl) Emergency Kit) insulin lispro 100 unit/mL See Protocol SUBCUT TIDAC 03/27/21 03/27/21 Unknown History subcutaneous pen (Admelog SoloStar U-100 Insulin lispro) magnesium hydroxide 400 mg/5 mL 30 ml PO DAILY PRN 03/27/21 03/27/21 Unknown History oral suspension (Milk of Magnesia) miconazole nitrate 2 % topical 1 appl TOPICAL BID 03/27/21 03/27/21 Unknown History cream mirtazapine 15 mg tablet 15 mg PO BEDTIME 03/27/21 03/27/21 Unknown History multivitamin 1 tab PO DAILY 03/27/21 03/27/21 Unknown History nystatin 100,000 unit/gram topical 1 appl TOPICAL BID 03/27/21 03/27/21 Unknown History powder omeprazole 20 mg capsule,delayed 20 mg PO DAILY@0630 03/27/21 03/27/21 Unknown History release ondansetron HCl 4 mg tablet 4 mg PO Q6H PRN 03/27/21 03/27/21 Unknown History oxycodone 5 mg tablet 5 mg PO Q12H PRN 03/27/21 03/27/21 Unknown History polyethylene glycol 3350 17 17 g PO DAILY 03/27/21 03/27/21 Unknown History gram/dose oral powder (Miralax) sodium phosphates 19 gram-7 118 ml MD Q3D PRN 03/27/21 03/27/21 Unknown History gram/118 mL enema (Fleet Enema) thiamine HCl (vitamin B1) 100 mg 100 mg PO DAILY 03/27/21 03/27/21 Unknown History tablet Physical Exam Vital Signs: Vital Signs: Last Vital Signs Temp 98.5 F 03/27/21 17:48 Pulse 105 H 03/28/21 01:08 Resp 12 03/28/21 01:08 BP 122/66 03/28/21 01:08 Pulse Ox 97 03/28/21 01:08 Body Mass Index 27.4 Const: Other: Alert, cooperative, no apparent distress HENMT: Head: Yes normocephalic and Yes atraumatic Resp: Effort & Inspection: normal respiratory effort Auscultation: clear to auscultation bilaterally Cardio: Rate: regular rate Rhythm: regular rhythm Skin: Other: Sacral decubitus ulcer, stage 4 by history. Wound bed is covered with healthy appearing granulation tissue Extrem: Other: Area of redness medial aspect right lower leg extending from just below knee to just above ankle. Results Labs Result diagrams: 03/28/21 05:57 03/28/21 05:57 Labs: Abnormal lab results 03/27/21 03/27/21 03/27/21 Range/Units 15:44 15:44 15:45 RBC 3.98 L (4.60-5.80) X10*6/uL Hgb 11.8 L (14.0-18.0) g/dl Hct 35.7 L (42.0-52.0) % Neut % (Auto) 79.9 H (45-73) % Lymph % (Auto) 8.8 L (20-40) % Eos % (Auto) (0-4) % Lymph # (Auto) 0.8 L (1.2-4.9) X10*3/uL Eos # (Auto) (0.0-0.4) X10*3/uL ESR (0-15) MM/HR Sodium 146 H (135-145) mmol/L Chloride 111 H (96-108) mmol/L POC Glucose (60-115) mg/dL Lactic Acid 2.1 H* (0.5-2.0) mmol/L Alkaline Phosphatase 147 H (39-117) U/L C-Reactive Protein 3.12 H (< or = 0.50) mg/dL Urine Blood (NEG) Urine RBC (0) /HPF 03/27/21 03/27/21 03/28/21 Range/Units 15:45 18:24 05:57 RBC 3.93 L (4.60-5.80) X10*6/uL Hgb 11.4 L (14.0-18.0) g/dl Hct 36.1 L (42.0-52.0) % Neut % (Auto) (45-73) % Lymph % (Auto) 16.1 L (20-40) % Eos % (Auto) 10.6 H (0-4) % Lymph # (Auto) 1.0 L (1.2-4.9) X10*3/uL Eos # (Auto) 0.6 H (0.0-0.4) X10*3/uL ESR 17 H (0-15) MM/HR Sodium (135-145) mmol/L Chloride (96-108) mmol/L POC Glucose (60-115) mg/dL Lactic Acid (0.5-2.0) mmol/L Alkaline Phosphatase (39-117) U/L C-Reactive Protein (< or = 0.50) mg/dL Urine Blood 2+ H (NEG) Urine RBC 10-14 H (0) /HPF 03/28/21 03/28/21 03/28/21 Range/Units 05:57 09:05 13:45 RBC (4.60-5.80) X10*6/uL Hgb (14.0-18.0) g/dl Hct (42.0-52.0) % Neut % (Auto) (45-73) % Lymph % (Auto) (20-40) % Eos % (Auto) (0-4) % Lymph # (Auto) (1.2-4.9) X10*3/uL Eos # (Auto) (0.0-0.4) X10*3/uL ESR (0-15) MM/HR Sodium 146 H (135-145) mmol/L Chloride 112 H (96-108) mmol/L POC Glucose 122 H 119 H (60-115) mg/dL Lactic Acid (0.5-2.0) mmol/L Alkaline Phosphatase (39-117) U/L C-Reactive Protein (< or = 0.50) mg/dL Urine Blood (NEG) Urine RBC (0) /HPF Short CBC 03/27/21 03/28/21 Range/Units 15:45 05:57 WBC 9.5 6.0 (4.8-10.8) X10*3/uL Hgb 11.8 L 11.4 L (14.0-18.0) g/dl Hct 35.7 L 36.1 L (42.0-52.0) % Plt Count 224 197 (160-400) X10*3/uL BMP 03/27/21 03/28/21 03/28/21 15:44 05:57 05:57 Sodium 146 H 146 H Potassium 3.9 D 3.9 Chloride 111 H 112 H Carbon Dioxide 27 23 BUN 16 11 Creatinine 0.93 0.78 0.78 Calcium 9.7 8.9 D Liver Function 03/27/21 Range/Units 15:44 Total Bilirubin 0.6 (0.0-1.0) mg/dL Direct Bilirubin 0.3 (0.0-0.5) mg/dL AST 26 (5-37) U/L ALT 28 (0-40) U/L Alkaline Phosphatase 147 H (39-117) U/L Albumin 4.0 (3.5-5.0) g/dL Urine 03/27/21 Range/Units 18:24 Urine Color YELLOW Urine Appearance CLEAR Urine pH 6.0 (5.0-8.0) Ur Specific [place] 1.025 (1.005-1.025) Urine Protein NEG (NEG-TRACE) MG/DL Urine Glucose (UA) NEG (NEG) MG/DL All other labs normal. Assessment and Plan (1) Sacral wound: Status: Acute (2) Cellulitis: Status: Acute Chronic sacral decubitus ulcer stage IV by history, clean and granulating. Will add silver alginate dressing. Area of redness medial aspect right lower leg may be traumatic in origin though cellulitis also possible. On Zosyn, vancomycin. Procedures Date of Service Date of Service: 03/28/21
--- NOTE | 2021-03-28 15:52 | MHC.CM.PN ---
Attempted to meet with patient in regards to discharge planning. Patient currently sleeping. Spoke with patient's brother, Kamlesh via telephone at [phone]. Patient is a custodial care resident of [facility]. Copy of HCP obtained from [facility]. Patient received Moderna vaccine on 09/08. IMM explained and left bedside. Anticipate patient will return to [facility] via BLS when medically stable. Continue to monitor for d/c needs.
--- NOTE | 2021-03-28 17:23 | PC.NURSE ---
pt linens changed repositioned, coccyx dsg c/d/i colostomy remains intact with no leaks
[2021-03-28 18:47] LABS: Glucose, Whole Blood 119 mg/dL (60-115)
[2021-03-28] MEDS: Mirtazapine 15 MG TABLET PO (22:31)
[2021-03-28] MEDS: Atorvastatin Calcium 80 MG TABLET PO (22:33)
[2021-03-28 23:23] VITALS: BP 132/82; PULSE 108; RESP 16; O2SAT 95
[2021-03-28 23:29] LABS: Glucose, Whole Blood 212 mg/dL (60-115)
[2021-03-28] MEDS: Insulin Lispro 100 UNIT/ML 3 ML VIAL SUBCUT (23:44)
[2021-03-28] MEDS: oxyCODONE HCl Immed Release 5 MG TABLET PO (23:56)
[2021-03-29] MEDS: Piperacillin Sodium/Tazobactam 3.375 GM in 0.9 % Sodium Chloride 50 ML IV ×5 (01:14→22:38)
[2021-03-29 06:10] VITALS: BP 138/88; PULSE 105; RESP 16; TEMP 36.5; O2SAT 95
[2021-03-29] MEDS: Omeprazole 20 MG CAPSULE.DR PO (06:23)
[2021-03-29 09:56] LABS: Anion Gap 13 (12-20); Blood Urea Nitrogen 12 mg/dL (9-16); Carbon Dioxide 25 mmol/L (22-29); Chloride 109 mmol/L (96-108); Creatinine Clr Calc Pharmacy 75.8; Estimated Glomerular Filt Rate > 60; Glucose Random 122 mg/dL (60-115); Sodium 143 mmol/L (135-145)
[2021-03-29 10:04] VITALS: BP 125/56; PULSE 101; RESP 20; TEMP 36.9; O2SAT 97
[2021-03-29 10:04] LABS: Glucose, Whole Blood 94 mg/dL (60-115)
[2021-03-29 10:10] LABS: Vancomycin Trough 19.1 mcg/mL (10.0-20.0)
[2021-03-29] MEDS: Heparin Sodium,Porcine 5,000 UNIT/ML VIAL 5000 UNIT SUBCUT ×2 (10:53→22:38)
[2021-03-29] MEDS: Ascorbic Acid 500 MG TABLET PO ×2 (10:54→20:49)
[2021-03-29] MEDS: Clopidogrel Bisulfate 75 MG TABLET PO (10:54)
[2021-03-29] MEDS: Thiamine HCL 100 MG TABLET PO (10:54)
[2021-03-29] MEDS: Docusate Sodium 100 MG CAPSULE PO (10:54)
[2021-03-29] MEDS: Multivitamin TABLET 1 TAB PO (10:54)
[2021-03-29] MEDS: polyethylene glycoL 3350 17 GM POWD.PACK PO (10:55)
--- NOTE | 2021-03-29 11:19 | PC.NURSE ---
Skin/wound assessment completed today. Patient came in with a stage 4 pressure injury to Sacrum-9 x 6 x 2.9, granulated bed with some yellow. EPC cream applied around edges then silver alginate applied to wound bed then covered with large foam. Redness to groin area-nystatin powder applied. Cellulitis to right lower extremity-no open areas-redness outlined. Small red spot on right forearm-EPC cream applied. No other skin issues noted at this time.
[2021-03-29 11:21] LABS: Glucose, Whole Blood 110 mg/dL (60-115)
--- NOTE | 2021-03-29 11:28 | HO.PM.IMPN ---
Subjective Subjective Date of Service: 03/29/21 Interval History: RLE pain/redness improved Review of Systems Review of Systems: Yes all other systems are reviewed and are negative Physical Exam Vital Signs: Vital Signs: Last Vital Signs Temp 98.4 F 03/29/21 10:04 Pulse 101 H 03/29/21 10:04 Resp 20 03/29/21 10:04 BP 125/56 L 03/29/21 10:04 Pulse Ox 97 03/29/21 10:04 Body Mass Index 27.4 Gen: in no acute distress HEENT: sclera anicteric, moist mucus membranes Neck: supple Lungs: clear to auscultation bilaterally Heart: regular rate and rhythm, no murmurs Abd: soft, non-tender, non-distended Ext: no edema Skin: warm/well-perfused, medial R calf with resolving erythema without any fluctuance.? sacral decubitus ulcer stage IV Neuro: alert and oriented to self, R hemiparesis with contracture of R hand Psych: appropriate affect Objective Data Active Medications Acetaminophen (Acetaminophen 325 Mg Tablet) 650 mg PO Q4H PRN PRN Reason: general discomfort Ascorbic Acid (Ascorbic Acid 500 Mg Tablet) 500 mg PO BID [facility] Last Admin: 03/29/21 10:54 Dose: 500 mg Documented by: DEWAYNE Aspirin (Aspirin Enteric Coated 81 Mg Tablet.Dr) 81 mg PO DAILY [facility] Last Admin: 03/29/21 11:00 Dose: Not Given Documented by: DEWAYNE Non-Admin Reason: cannot be crushed Atorvastatin Calcium (Atorvastatin Calcium 80 Mg Tablet) 80 mg PO BEDTIME [facility] Last Admin: 03/28/21 22:33 Dose: 80 mg Documented by: JESSIE Bisacodyl (Bisacodyl 10 Mg Supp.Rect) 10 mg CO Q3D PRN PRN Reason: Constipation Clopidogrel Bisulfate (Clopidogrel Bisulfate 75 Mg Tablet) 75 mg PO DAILY [facility] Last Admin: 03/29/21 10:54 Dose: 75 mg Documented by: DEWAYNE Dextrose (Dextrose 50 % 25 Gm/50 Ml Vial) 25 gm IVPUSH Q15M PRN; Protocol PRN Reason: per Hypoglycemia Standing Ord. Docusate Sodium (Docusate Sodium 100 Mg Capsule) 100 mg PO BID [facility] Last Admin: 03/29/21 10:54 Dose: 100 mg Documented by: DEWAYNE Ergocalciferol (Ergocalciferol (Vitamin D2) 1,250 Mcg Capsule) 1,250 mcg PO WE@0900 [facility] Glucose (Glucose Gel 15 Gm Gel..Gram.) 15 gm PO Q15M PRN; Protocol PRN Reason: per Hypoglycemia Standing Ord. Heparin Sodium (Porcine) (Heparin Sodium,Porcine 5,000 Unit/Ml Vial) 5,000 unit SUBCUT Q12H [facility] Last Admin: 03/29/21 10:53 Dose: 5,000 unit Documented by: DEWAYNE Piperacillin Sod/Tazobactam (Sod 3.375 gm/ Sodium Chloride) 50 mls @ 100 mls/hr IV Q6H [facility] Last Admin: 03/29/21 10:56 Dose: 100 mls/hr Documented by: DEWAYNE Vancomycin HCl 1,250 mg/ (Sodium Chloride) 250 mls @ 166.667 mls/hr IV Q24H [facility] Insulin Human Lispro (Insulin Lispro 100 Unit/Ml 3 Ml Vial) 0 unit SUBCUT QIDACHS [facility]; Protocol Last Admin: 03/29/21 08:27 Dose: Not Given Documented by: YENNY Non-Admin Reason: No Insulin Coverage Magnesium Hydroxide (Milk Of Magnesia 30 Ml Oral.Susp) 30 ml PO DAILY PRN PRN Reason: Constipation Melatonin (Melatonin 3 Mg Tablet) 6 mg PO BEDTIME PRN PRN Reason: Insomnia Mirtazapine (Mirtazapine 15 Mg Tablet) 15 mg PO BEDTIME [facility] Last Admin: 03/28/21 22:31 Dose: 15 mg Documented by: JESSIE Multivitamins/Vitamin C (Multivitamin Tablet) 1 tab PO DAILY [facility] Last Admin: 03/29/21 10:54 Dose: 1 tab Documented by: DEWAYNE Nystatin (Nystatin Powder 15 Gm Bottle) 1 appl TOPICAL BID [facility]; Protocol Last Admin: 03/29/21 11:00 Dose: Not Given Documented by: DEWAYNE Non-Admin Reason: Med Not Available Omeprazole (Omeprazole 20 Mg Capsule.) 20 mg PO DAILY@0630 [facility] Last Admin: 03/29/21 06:23 Dose: 20 mg Documented by: JESSIE Oxycodone HCl (Oxycodone Hcl Immed Release 5 Mg Tablet) 5 mg PO Q12H PRN PRN Reason: Pain (Scale Score 4-6) Last Admin: 03/28/21 23:56 Dose: 5 mg Documented by: JESSIE Pharmacy Consult (Consult Rx Perform Med Rec) 1 each MISCELLANE ONCE PRN PRN Reason: Consult order Pharmacy Consult (Consult Rx Vancomycin Dosing) 1 each MISCELLANE DAILY PRN PRN Reason: Consult order Polyethylene Glycol (Polyethylene Glycol 3350 17 Gm Powd.Pack) 17 gm PO DAILY [facility] Last Admin: 03/29/21 10:55 Dose: 17 gm Documented by: DEWAYNE Senna (Sennosides 8.6 Mg Tablet) 17.2 mg PO BEDTIME PRN PRN Reason: Constipation Sodium Biphosphate/Sodium Phosphate (Sodium Phosphate,[place]-Dibasic 133 Ml Enema) 118 ml CO Q3D PRN PRN Reason: Constipation Sodium Chloride (0.9 % Sodium Chloride Flush 3 Ml Syringe) 3 ml IVFLUSH QSHIFT [facility] Last Admin: 03/29/21 08:27 Dose: Not Given Documented by: YENNY Non-Admin Reason: See Note Thiamine HCl (Thiamine Hcl 100 Mg Tablet) 100 mg PO DAILY [facility] Last Admin: 03/29/21 10:54 Dose: 100 mg Documented by: DEWAYNE Labs CBC & Chem 7: 03/28/21 05:57 03/29/21 09:27 Labs: Laboratory Results - last 24 hr 03/28/21 03/28/21 03/28/21 13:45 18:44 23:20 Anion Gap Estim Creat Clear Calc Estimated GFR POC Glucose 119 H 119 H 212 H Random Glucose Calcium Vancomycin Trough 03/29/21 03/29/21 03/29/21 08:25 09:27 09:27 Anion Gap 13 Estim Creat Clear Calc 75.8 Estimated GFR > 60 POC Glucose 94 Random Glucose 122 H Calcium 9.0 Vancomycin Trough 19.1 03/29/21 11:16 Anion Gap Estim Creat Clear Calc Estimated GFR POC Glucose 110 Random Glucose Calcium Vancomycin Trough Microbiology Microbiology Results: Microbiology 03/27/21 15:59 Blood Culture - Preliminary Blood - Venous No growth after 24 hours. 03/27/21 15:44 Blood Culture - Preliminary Blood - Venous No growth after 24 hours. Assessment and Plan (1) Sacral wound: Status: Acute (2) Cellulitis: Status: Acute Assessment and Plan: hospital d#3 70yo M long-term SNF resident [[facility]] with hx CVA with RLE hemiparesis, HTN, HLD, DM2, chronic sacral decibuts ulcer presented with AMS/agitation # nonpurulent cellulitis - vanco + pip/renee d#3, follow BCx, ID consult pending - improving # sacral decubitus ulcer, stage IV, present on admission - Surg consulted, wound is clean + granulating, added silver alginate # toxic/metabolic encephalopathy - resolved with infection treatment # lactic acidosis - not septic; resolved # prior CVA - DAPT + statin for secondary prevention # DM2 - correction-dose lispro # VTE ppx - UFH Quality Stroke Does the patient have a stroke diagnosis?: No VTE Prior VTE?: No VTE Risk Level:: Medical - moderate - high VTE Device Contraindication: Treatment Not Indicated VTE Drug Contraindication: N/A - Med Ordered
[2021-03-29 11:35] VITALS: BP 116/56; PULSE 98; RESP 18; TEMP 36.7; O2SAT 98
[2021-03-29] MEDS: vancomycin HCL 1,250 MG in 0.9 % Sodium Chloride 250 ML 166.67 MG IV (11:50)
[2021-03-29 13:22] VITALS: BMI 24.2
--- NOTE | 2021-03-29 14:24 | MHC.CM.PN ---
DP Patient is a LTC resident of [facility]. He will return via BLS at discharge.
[2021-03-29 14:38] VITALS: BMI 24.2
--- NOTE | 2021-03-29 14:42 | MHC.CLN ---
RE: CONSULT PT IS AT INCREASED NUTRITION RISK R/T STAGE IV PRESSURE INJURY ON SACRUM DIET RX: 2000 DM-RECOMMEND 2200 DM RECOMMEND GLUCERNA SUPPLEMENT TID AND SHERINE BID TO PROVIDE 811 KCALS AND 35 GRAMS PROTEIN MONITOR PO INTAKE AND SUPPLEMENT ACCEPTANCE
[2021-03-29] MEDS: oxyCODONE HCl Immed Release 5 MG TABLET PO (15:01)
[2021-03-29 15:36] VITALS: BP 111/57; PULSE 97; RESP 18; TEMP 36.7; O2SAT 99
--- NOTE | 2021-03-29 16:14 | P.CNID_ITS ---
History of Present Illness Data of Consult Service Date: 03/29/21 Requesting physician: Gavin Bills Primary Care Provider: Bobo Leyva MD [facility] Reason for consult: possible infection sacrum,right leg He presents from [facility] with aggression and temperature to 100. 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 He also has right leg erythema Review of Systems Review of Systems: Yes Unobtainable due to mental status PMFSH Family History Family history: reviewed and not pertinent Social History Social History Household Members: Other Household Members Other:: LTC Housing: Longterm Unable to assess alcohol history related to: Unable to respond Alcohol intake: never Patient Tobacco Use Status: Tobacco use Unknown Advance Directives Date on File: 02/27/21 service: No Current occupational status: retired [employer] Allergies Allergy/AdvReac Type Severity Reaction Status Date / Time No Known Allergies Allergy Verified 02/27/21 15:57 Active Medications: Current Medications Acetaminophen (Acetaminophen 325 Mg Tablet) 650 mg PO Q4H PRN PRN Reason: general discomfort Ascorbic Acid (Ascorbic Acid 500 Mg Tablet) 500 mg PO BID [facility] Last Admin: 03/29/21 10:54 Dose: 500 mg Documented by: Aspirin (Aspirin Enteric Coated 81 Mg Tablet.) 81 mg PO DAILY [facility] Last Admin: 03/29/21 11:00 Dose: Not Given Documented by: Atorvastatin Calcium (Atorvastatin Calcium 80 Mg Tablet) 80 mg PO BEDTIME [facility] Last Admin: 03/28/21 22:33 Dose: 80 mg Documented by: Bisacodyl (Bisacodyl 10 Mg Supp.Rect) 10 mg ND Q3D PRN PRN Reason: Constipation Clopidogrel Bisulfate (Clopidogrel Bisulfate 75 Mg Tablet) 75 mg PO DAILY [facility] Last Admin: 03/29/21 10:54 Dose: 75 mg Documented by: Dextrose (Dextrose 50 % 25 Gm/50 Ml Vial) 25 gm IVPUSH Q15M PRN; Protocol PRN Reason: per Hypoglycemia Standing Ord. Docusate Sodium (Docusate Sodium 100 Mg Capsule) 100 mg PO BID [facility] Last Admin: 03/29/21 10:54 Dose: 100 mg Documented by: Ergocalciferol (Ergocalciferol (Vitamin D2) 1,250 Mcg Capsule) 1,250 mcg PO WE@0900 [facility] Glucose (Glucose Gel 15 Gm Gel..Gram.) 15 gm PO Q15M PRN; Protocol PRN Reason: per Hypoglycemia Standing Ord. Heparin Sodium (Porcine) (Heparin Sodium,Porcine 5,000 Unit/Ml Vial) 5,000 unit SUBCUT Q12H [facility] Last Admin: 03/29/21 10:53 Dose: 5,000 unit Documented by: Piperacillin Sod/Tazobactam (Sod 3.375 gm/ Sodium Chloride) 50 mls @ 100 mls/hr IV Q6H [facility] Last Infusion: 03/29/21 12:01 Dose: Infused Documented by: Vancomycin HCl 1,250 mg/ (Sodium Chloride) 250 mls @ 166.667 mls/hr IV Q24H [facility] Last Infusion: 03/29/21 14:29 Dose: Infused Documented by: Insulin Human Lispro (Insulin Lispro 100 Unit/Ml 3 Ml Vial) 0 unit SUBCUT QIDACHS [facility]; Protocol Last Admin: 03/29/21 11:49 Dose: Not Given Documented by: Magnesium Hydroxide (Milk Of Magnesia 30 Ml Oral.Susp) 30 ml PO DAILY PRN PRN Reason: Constipation Melatonin (Melatonin 3 Mg Tablet) 6 mg PO BEDTIME PRN PRN Reason: Insomnia Mirtazapine (Mirtazapine 15 Mg Tablet) 15 mg PO BEDTIME [facility] Last Admin: 03/28/21 22:31 Dose: 15 mg Documented by: Multivitamins/Vitamin C (Multivitamin Tablet) 1 tab PO DAILY [facility] Last Admin: 03/29/21 10:54 Dose: 1 tab Documented by: Nystatin (Nystatin Powder 15 Gm Bottle) 1 appl TOPICAL BID [facility]; Protocol Last Admin: 03/29/21 11:00 Dose: Not Given Documented by: Omeprazole (Omeprazole 20 Mg Capsule.Dr) 20 mg PO DAILY@0630 [facility] Last Admin: 03/29/21 06:23 Dose: 20 mg Documented by: Oxycodone HCl (Oxycodone Hcl Immed Release 5 Mg Tablet) 5 mg PO Q12H PRN PRN Reason: Pain (Scale Score 4-6) Last Admin: 03/29/21 15:01 Dose: 5 mg Documented by: Pharmacy Consult (Consult Rx Perform Med Rec) 1 each MISCELLANE ONCE PRN PRN Reason: Consult order Pharmacy Consult (Consult Rx Vancomycin Dosing) 1 each MISCELLANE DAILY PRN PRN Reason: Consult order Polyethylene Glycol (Polyethylene Glycol 3350 17 Gm Powd.Pack) 17 gm PO DAILY [facility] Last Admin: 03/29/21 10:55 Dose: 17 gm Documented by: Senna (Sennosides 8.6 Mg Tablet) 17.2 mg PO BEDTIME PRN PRN Reason: Constipation Sodium Biphosphate/Sodium Phosphate (Sodium Phosphate,[place]-Dibasic 133 Ml Enema) 118 ml ND Q3D PRN PRN Reason: Constipation Sodium Chloride (0.9 % Sodium Chloride Flush 3 Ml Syringe) 3 ml IVFLUSH QSHIFT [facility] Last Admin: 03/29/21 08:27 Dose: Not Given Documented by: Thiamine HCl (Thiamine Hcl 100 Mg Tablet) 100 mg PO DAILY [facility] Last Admin: 03/29/21 10:54 Dose: 100 mg Documented by: Home Medications Medication Instructions Recorded Confirmed Last Taken Type acetaminophen 325 mg tablet 650 mg PO Q4H PRN 03/27/21 03/27/21 Unknown History ascorbic acid (vitamin C) 500 mg 500 mg PO BID 03/27/21 03/27/21 Unknown History tablet (Vitamin C) aspirin 81 mg tablet,delayed 81 mg PO DAILY 03/27/21 03/27/21 Unknown History release atorvastatin 80 mg tablet 80 mg PO BEDTIME 03/27/21 03/27/21 Unknown History bisacodyl 10 mg rectal suppository 10 mg ND Q3D PRN 03/27/21 03/27/21 Unknown History (Dulcolax (bisacodyl)) clopidogrel 75 mg tablet 75 mg PO DAILY 03/27/21 03/27/21 Unknown History dextrose 40 % oral gel (Glucose 10 g PO Q15M PRN 03/27/21 03/27/21 Unknown History Gel) docusate sodium 100 mg capsule 100 mg PO BID 03/27/21 03/27/21 Unknown History (Colace) ergocalciferol (vitamin D2) 1,250 1,250 mcg PO WE@0900 03/27/21 03/27/21 Unknown History mcg (50,000 unit) capsule glucagon HCl 1 mg solution for 1 mg SUBCUT Q20M PRN 03/27/21 03/27/21 Unknown History injection (Glucagon (HCl) Emergency Kit) insulin lispro 100 unit/mL See Protocol SUBCUT TIDAC 03/27/21 03/27/21 Unknown History subcutaneous pen (Admelog SoloStar U-100 Insulin lispro) magnesium hydroxide 400 mg/5 mL 30 ml PO DAILY PRN 03/27/21 03/27/21 Unknown History oral suspension (Milk of Magnesia) miconazole nitrate 2 % topical 1 appl TOPICAL BID 03/27/21 03/27/21 Unknown History cream mirtazapine 15 mg tablet 15 mg PO BEDTIME 03/27/21 03/27/21 Unknown History multivitamin 1 tab PO DAILY 03/27/21 03/27/21 Unknown History nystatin 100,000 unit/gram topical 1 appl TOPICAL BID 03/27/21 03/27/21 Unknown History powder omeprazole 20 mg capsule,delayed 20 mg PO DAILY@0630 03/27/21 03/27/21 Unknown History release ondansetron HCl 4 mg tablet 4 mg PO Q6H PRN 03/27/21 03/27/21 Unknown History oxycodone 5 mg tablet 5 mg PO Q12H PRN 03/27/21 03/27/21 Unknown History polyethylene glycol 3350 17 17 g PO DAILY 03/27/21 03/27/21 Unknown History gram/dose oral powder (Miralax) sodium phosphates 19 gram-7 118 ml ND Q3D PRN 03/27/21 03/27/21 Unknown History gram/118 mL enema (Fleet Enema) thiamine HCl (vitamin B1) 100 mg 100 mg PO DAILY 03/27/21 03/27/21 Unknown History tablet Physical Exam Vital Signs: Vital Signs: Last Vital Signs Temp 98.1 F 03/29/21 15:36 Pulse 97 03/29/21 15:36 Resp 18 03/29/21 15:36 BP 111/57 L 03/29/21 15:36 Pulse Ox 99 03/29/21 15:36 Body Mass Index 24.2 Const: General: cooperative Limitations: altered mental status HENMT: Head: Yes normal to inspection Mouth: Normal oral and palatal mucosa present Resp: Effort & Inspection: normal respiratory effort Cardio: Rate: regular rate Rhythm: regular rhythm GI: Palpation (GI): Soft to palpation and nontender Back/Spine/Pelvis: Other: granulated sacral wound Extrem: Other: right le cellulitis Results Labs CBC & Chem 7: 03/28/21 05:57 03/30/21 05:36 Labs: BMP 03/29/21 09:27 Sodium 143 Potassium 4.0 Chloride 109 H Carbon Dioxide 25 BUN 12 Creatinine 0.88 Calcium 9.0 Microbiology Microbiology Results: Microbiology 03/27/21 15:59 Blood - Venous Blood Culture - Preliminary No growth after 24 hours. 03/27/21 15:44 Blood - Venous Blood Culture - Preliminary No growth after 24 hours. Assessment and Plan (1) Cellulitis: Status: Acute (2) Sacral wound: Status: Acute (3) Fever: Status: Resolved Fever and confusion may be from cellulitis RLE Less likely is fever from sacral decubitus or herpes simplex encephalitis or other cause (4) Acute confusion: Status: Resolved Continue current antibiotics Await cultures Possible po treatment for cellulitis with Doxycycline or Ceftin if nothing else found
[2021-03-29 16:28] LABS: Glucose, Whole Blood 96 mg/dL (60-115)
[2021-03-29] MEDS: 0.9 % Sodium Chloride Flush 3 ML SYRINGE IVFLUSH ×2 (17:50→22:40)
[2021-03-29 19:33] VITALS: BP 114/52; TEMP 37.1; O2SAT 98
[2021-03-29 20:39] LABS: Glucose, Whole Blood 105 mg/dL (60-115)
[2021-03-29] MEDS: Atorvastatin Calcium 80 MG TABLET PO (20:49)
[2021-03-29] MEDS: Mirtazapine 15 MG TABLET PO (20:49)
--- NOTE | 2021-03-29 21:53 | MHC.PIE ---
p; per previous rn, pt observed unable to eat dinner, difficulty chewing food and swallowig thin liquids. night time meds given crushed in apple sauce ? swallow eval? i; dr huber notifiedl; new order swallow eval e; will cont to monitor
[2021-03-29 23:42] VITALS: BP 118/64; PULSE 92; RESP 16; TEMP 36.3; O2SAT 95
--- NOTE | 2021-03-29 23:59 | MHC.PIE ---
p; pt found in room taking his gretchen off, heart monitor off, colostomy bag off and iv off covered in stool. i; pt cleaned, camera placed in room, new #22 rt shoulder placed e; will cont to sarah
[2021-03-30 03:37] VITALS: BP 111/59; PULSE 94; RESP 16; TEMP 36.4; O2SAT 99
[2021-03-30] MEDS: Piperacillin Sodium/Tazobactam 3.375 GM in 0.9 % Sodium Chloride 50 ML IV (06:11)
[2021-03-30] MEDS: Omeprazole 20 MG CAPSULE.DR PO (06:11)
[2021-03-30 07:39] VITALS: BP 113/63; PULSE 91; RESP 18; TEMP 36.7; O2SAT 99
[2021-03-30 07:40] LABS: Glucose, Whole Blood 106 mg/dL (60-115)
[2021-03-30 07:51] LABS: Creatinine Clr Calc Pharmacy 78.5; Estimated Glomerular Filt Rate > 60
[2021-03-30] MEDS: 0.9 % Sodium Chloride Flush 3 ML SYRINGE IVFLUSH (08:02)
[2021-03-30] MEDS: Docusate Sodium 100 MG CAPSULE PO (08:02)
[2021-03-30] MEDS: Thiamine HCL 100 MG TABLET PO (08:02)
[2021-03-30] MEDS: Ascorbic Acid 500 MG TABLET PO (08:02)
[2021-03-30] MEDS: Aspirin Enteric Coated 81 MG TABLET.DR PO (08:02)
[2021-03-30] MEDS: Clopidogrel Bisulfate 75 MG TABLET PO (08:02)
[2021-03-30] MEDS: polyethylene glycoL 3350 17 GM POWD.PACK PO (08:03)
[2021-03-30] MEDS: Multivitamin TABLET 1 TAB PO (08:03)
[2021-03-30 11:17] LABS: Glucose, Whole Blood 154 mg/dL (60-115)
[2021-03-30 11:31] VITALS: BP 123/58; PULSE 87; RESP 17; TEMP 36.6; O2SAT 99
[2021-03-30] MEDS: Heparin Sodium,Porcine 5,000 UNIT/ML VIAL 5000 UNIT SUBCUT (11:39)
[2021-03-30] MEDS: Amoxicillin/Potassium Clav 875 MG TABLET PO (11:39)
[2021-03-30 13:08] LABS: COVID-19 Test Negative (Negative); IDNOW Serial# 9DD0AD1C
--- NOTE | 2021-03-30 13:58 | MHC.SL.SWA ---
Speech Pathologist Impression: Risk of Aspiration Oralpharyngeal Dysphagia Dysphagia Following CVA Risk of Aspiration Due to: Neurological Condition Reduced Cognition Weak Cough Weak Voice Dysphasia Diet Status: Upgrade Liquid Consistency and Strategies for Safe Swallow: Liquid Intake Recommendation: [place] Thick Liquid Intake Strategies: Liquids by Teaspoon Only Solid Food Consistency: Dietary Recommendations: Pureed (NDD1) Additional Modifications to Solid Foods: Oral Medication Intake: Crushed with Puree Compensatory Strategies and Precautions to be Taken for Safe Swallow: Sitting Upright (90 deg) Chin Tuck Liquids from Spoon Alternate Liquids/Solids Supervision While Eating and Drinking for Safe Swallow: Total Supervision (1:1) Foods to Avoid: Swallowing Recommended Treatments: Recommendation for Speech: Inpatient Speech Therapy Comment: Pt has history of previous CVA w/ R hemeparesis, moderate-severe Dysarthria of Speech, Dysphagia. On thin liquid, Pt had difficulty containing in mouth initially, with delayed swallow and wet vocal quality after swallow, no protective cough. On thickened liquids, when presented Pt commented they usually come that way indicating this is typical for his diet. Pt had mild delay in bolus transport, with mild delay of swallow though improved elevation of larynx on swallow. No signs of aspiration on thickened liquid. On puree, Pt had prolonged oral phase with mild oral residual after swallow, cleared with re-swallow. Swallow was mildly delayed after oral phase, double swallow noted. Due to delayed swallow, oral residual, R oral motor weakness, did not assess more advanced solid consistencies.MD, Nurse, Dieticians notified of diet consistency recommendation via secure text following evaluation. [facility] to follow Pt daily M-F to reassess swallow, monitor toleration of diet, assess if warranted for advancement of diet. Frequency/Duration: While inpatient Date Range for Service Req: Timeline to reassess: Medical Recruiter Clinican/Clinical Fellow: No Supervisory Statement: I have reviewed and agree with the student/clinical fellow's documentation: Speech Language Pathologist: Elo Anderson M.A., [facility]
--- NOTE | 2021-03-30 14:19 | PM.DS ---
DS: Providers Provider Date of Service: 03/30/21 Date of admission: 03/27/21 22:36 Date of discharge: 03/30/21 Primary care physician: Bobo Leyva MD Consults: 03/27/21 22:32 Consult to General Surgery Routine Consulting Provider: Nilsa Redmond Reason for consultation: decub ulcer/cellulitis Consult to Infectious Diseases Routine Consulting Provider: Priya Chopra Reason for consultation: decub ulcer/cellulitis; leg cellulitis DS: Diagnosis Discharge Diagnosis (1) Cellulitis: Status: Acute (2) Sacral wound: Status: Acute (3) Fever: Status: Resolved (4) Acute confusion: Status: Resolved DS: Summary Hospital Course Hospital Course: 70yo M long-term SNF resident [[facility]] with hx CVA with RLE hemiparesis, HTN, HLD, DM2, chronic sacral decibuts ulcer presented with AMS/agitation Hospital course: 70-year-old male admitted for nonpurulent cellulitis: Cellulitis seems to be improved with IV antibiotics, continue p.o. antibiotic course. Toxic metabolic encephalopathy seems to be improved with infection treatment. Sacral decubitus ulcer: Seen by surgery: Wound is clean and granulating, continue current wound care. Consider outpatient follow-up with wound care and surgery. Assessment and plan coordination time spent 45 minutes. Time Spent with Patient Time attestation: Total time spent providing and/or coordinating discharge services: Discharge coordination time: Greater than 30 minutes Quality: Stroke Does the patient have a stroke diagnosis?: No Physical Exam Vital Signs: Vital Signs: Last Vital Signs Temp 97.8 F 03/30/21 11:31 Pulse 87 03/30/21 11:31 Resp 17 03/30/21 11:31 BP 123/58 L 03/30/21 11:31 Pulse Ox 99 03/30/21 11:31 Body Mass Index 24.2 Gen: in no acute distress HEENT: sclera anicteric, moist mucus membranes Neck: supple Lungs: clear to auscultation bilaterally Heart: regular rate and rhythm, no murmurs Abd: soft, non-tender, non-distended Ext: no edema Skin: warm/well-perfused, medial R calf with resolving erythema without any fluctuance.? sacral decubitus ulcer stage IV-wound is clean + granulating. Neuro: alert and oriented to self, R hemiparesis with contracture of R hand Psych: appropriate affect DS: Data Data Completed and Pending Labs on day of discharge: Laboratory Results - last 24 hr 03/29/21 03/29/21 03/30/21 16:25 20:31 05:36 Creatinine 0.85 Estim Creat Clear Calc 78.5 Estimated GFR > 60 POC Glucose 96 105 COVID-19 (ÓSCAR) COVID-19 Clin Com 03/30/21 03/30/21 03/30/21 07:24 11:09 12:29 Creatinine Estim Creat Clear Calc Estimated GFR POC Glucose 106 154 H COVID-19 (ÓSCAR) Negative COVID-19 Clin Com See Note Preliminary micro results at discharge 03/27/21 15:59 Blood Culture - Preliminary Blood - Venous No growth after 48 hours. 03/27/21 15:44 Blood Culture - Preliminary Blood - Venous No growth after 48 hours. Discharge Plan Discharge Patient Disposition: [facility] Discharge Diagnosis: nonpurulent cellulitis, toxic metabolic encephalopathy. Referrals: Bobo Leyva MD [Primary Care Provider] - 1 Week Discharge Medications: New doxycycline hyclate 100 mg Tablet 100 mg PO Q12H Qty: 14 RF: 0 Continued multivitamin Tablet 1 tab PO DAILY RF: 0 atorvastatin 80 mg Tablet 80 mg PO BEDTIME RF: 0 acetaminophen 325 mg Tablet 650 mg PO Q4H PRN (Reason: general discomfort) RF: 0 miconazole nitrate 2 % Cream 1 appl TOPICAL BID RF: 0 ondansetron HCl 4 mg Tablet 4 mg PO Q6H PRN (Reason: Nausea And Vomiting) RF: 0 dextrose [Glucose Gel] 40 % Gel 10 g PO Q15M PRN (Reason: blood sugar <60) RF: 0 thiamine HCl (vitamin B1) 100 mg Tablet 100 mg PO DAILY RF: 0 clopidogrel 75 mg Tablet 75 mg PO DAILY RF: 0 aspirin 81 mg Tablet,Delayed Release (Dr/Ec) 81 mg PO DAILY RF: 0 magnesium hydroxide [Milk of Magnesia] 400 mg/5 mL Suspension 30 ml PO DAILY PRN (Reason: Constipation) RF: 0 ascorbic acid (vitamin C) [Vitamin C] 500 mg Tablet 500 mg PO BID RF: 0 bisacodyl [Dulcolax (bisacodyl)] 10 mg Suppository 10 mg MD Q3D PRN (Reason: Constipation) RF: 0 Fleet Enema 19-7 gram/118 mL Enema 118 ml MD Q3D PRN (Reason: Constipation) RF: 0 docusate sodium [Colace] 100 mg Capsule 100 mg PO BID RF: 0 omeprazole 20 mg Capsule,Delayed Release(Dr/Ec) 20 mg PO DAILY@0630 RF: 0 mirtazapine 15 mg Tablet 15 mg PO BEDTIME RF: 0 ergocalciferol (vitamin D2) 1,250 mcg (50,000 unit) Capsule 1,250 mcg PO WE@0900 RF: 0 nystatin 100,000 unit/gram Powder 1 appl TOPICAL BID RF: 0 polyethylene glycol 3350 [Miralax] 17 gram/dose Powder 17 g PO DAILY RF: 0 oxycodone 5 mg Tablet 5 mg PO Q12H PRN (Reason: Pain (Scale Score 4-6)) RF: 0 insulin lispro [Admelog SoloStar U-100 Insulin] 100 unit/mL Insulin Pen See Protocol sliding scale dose SUBCUT TIDAC RF: 0 Glucagon (HCl) Emergency Kit 1 mg Recon Soln 1 mg SUBCUT Q20M PRN (Reason: bs <60, unconscious, unresponsive) RF: 0 Discharge Orders: Discharge Order (Routine); Ordered 03/30/21 Ordered By: Lyla Lan Diet: advance to usual diet Activity on Discharge: As tolerated Stand Alone Forms: Patient Portal Discharge page Care Plan Goals: 70-year-old male admitted for nonpurulent cellulitis: Cellulitis seems to be improved with IV antibiotics, continue p.o. antibiotic course. Toxic metabolic encephalopathy seems to be improved with infection treatment. Sacral decubitus ulcer: Seen by surgery: Wound is clean and granulating, continue current wound care. Consider outpatient follow-up with wound care and surgery. Health Concerns: As above. Plan of Treatment: As above. Assessment: As above. Patient Instructions: Doxycycline (By mouth) Discharge Date/Time: 03/30/21 18:12
[2021-03-30 16:00] VITALS: TEMP 36.7
[2021-03-30 16:34] LABS: Glucose, Whole Blood 183 mg/dL (60-115)
== END 2021-03-30 18:12 | disposition skilled nursing facility (03) | DRG 592 ==
LOC: HO.ED 20:34 → HO.EDOVER 22:48 → HO.IMC 03-29 08:26
PROVIDERS: Family Medicine; Nurse Practitioner Family; Admitting Provider Hospitalist; Emergency Provider Emergency Medicine Emergency Medical Services; PCP Family Medicine; Visit Provider Internal Medicine
DX: L89.154 Pressure ulcer of sacral region, stage 4 (principal); G92.9 Unspecified toxic encephalopathy; I69.851 Hemiplegia and hemiparesis following other cerebrovascular disease affecting right dominant side; E87.2 Acidosis; L03.115 Cellulitis of right lower limb; E11.628 Type 2 diabetes mellitus with other skin complications; Z20.822 Contact with and (suspected) exposure to COVID-19; Z79.82 Long term (current) use of aspirin; Z79.899 Other long term (current) drug therapy; Z66 Do not resuscitate
CPT/HCPCS: 36415; 70450; 71045; 72193; 80048; 80076; 80202; 81001; 82565; 82947; 83605; 83735; 85025; 85652; 86140; 87040; 87635; 92610; 93005; 96361; 96365; 96375; 99285; J0696; J2543; J3370; Q9967

== ENCOUNTER 2021-03-29 00:37 | Outpatient (REF) | payer OTHER, MEDICAID, SELFPAY | END 2021-03-29 00:38 | disposition home or self-care (01) | LOC: HO.MMNH3L 00:37 | PROVIDERS: Visit Provider Family Medicine | DX: Z13.89 Encounter for screening for other disorder (principal) ==

== ENCOUNTER 2021-03-31 07:09 | Outpatient (REF) | payer OTHER, MEDICAID, SELFPAY ==
[2021-03-31 07:14] LABS: MANUAL DIFF FLAG NO
[2021-03-31 07:20] LABS: Basophils Percent Auto 0.7 % (0-2); Eosinophils Absolute Auto 0.7 X10*3/uL (0.0-0.4); Eosinophils Percent Auto 14.8 % (0-4); Hematocrit 31.4 % (42.0-52.0); Hemoglobin 10.2 g/dl (14.0-18.0); Imm Gran Abs Auto 0.01 X10*3/uL (0.00-0.03); Imm Gran Pct Auto 0.2 % (0.0-0.4); Lymphocytes Absolute Auto 1.2 X10*3/uL (1.2-4.9); Lymphocytes Percent Auto 26.3 % (20-40); Mean Corpuscular HGB Conc 32.5 g/dl (31.0-36.0); Mean Corpuscular Hemoglobin 29.4 pg (27.0-33.0); Mean Corpuscular Volume 90.5 fL (80.0-98.0); Mean Platelet Volume 10.4 fL (9.4-12.4); Monocytes Absolute Auto 0.5 X10*3/uL (0.1-1.2); Monocytes Percent Auto 11.2 % (2-11); Neutrophils Absolute Auto 2.1 x10*3/uL (2.0-8.3); Neutrophils Percent Auto 46.8 % (45-73); Platelet Count 192 X10*3/uL (160-400); Red Blood Count 3.47 X10*6/uL (4.60-5.80); Red Cell Distribution Width 13.9 % (11.0-16.0); White Blood Count 4.5 X10*3/uL (4.8-10.8)
[2021-03-31 07:34] LABS: Alanine Aminotransferase 16 U/L (0-40); Albumin Level 3.2 g/dL (3.5-5.0); Alkaline Phosphatase 96 U/L (39-117); Anion Gap 11 (12-20); Aspartate Amino Transferase 14 U/L (5-37); Bilirubin Total 0.5 mg/dL (0.0-1.0); Blood Urea Nitrogen 9 mg/dL (9-16); Calcium 8.8 mg/dL (8.4-10.2); Carbon Dioxide 28 mmol/L (22-29); Chloride 108 mmol/L (96-108); Estimated Glomerular Filt Rate > 60; Glucose Random 101 mg/dL (60-115); Sodium 143 mmol/L (135-145); Total Protein 5.7 g/dL (6.5-8.0)
== END 2021-03-31 07:10 | disposition home or self-care (01) ==
LOC: HO.MMNH3L 07:09
PROVIDERS: Visit Provider Family Medicine
DX: F03.91 Unspecified dementia, unspecified severity, with behavioral disturbance (principal); N18.4 Chronic kidney disease, stage 4 (severe); N40.1 Benign prostatic hyperplasia with lower urinary tract symptoms
CPT/HCPCS: 36415; 80053; 85025

== ENCOUNTER 2021-04-05 22:09 | Outpatient (REF) | payer OTHER, MEDICAID, SELFPAY ==
[2021-04-05 07:07] LABS: Hematocrit 35.2 % (42.0-52.0); Hemoglobin 11.3 g/dl (14.0-18.0); Mean Corpuscular HGB Conc 32.1 g/dl (31.0-36.0); Mean Corpuscular Hemoglobin 29.4 pg (27.0-33.0); Mean Corpuscular Volume 91.7 fL (80.0-98.0); Mean Platelet Volume 10.4 fL (9.4-12.4); Platelet Count 235 X10*3/uL (160-400); Red Blood Count 3.84 X10*6/uL (4.60-5.80); Red Cell Distribution Width 14.2 % (11.0-16.0); White Blood Count 6.8 X10*3/uL (4.8-10.8)
[2021-04-05 07:24] LABS: Anion Gap 13 (12-20); Blood Urea Nitrogen 11 mg/dL (9-16); Calcium 8.9 mg/dL (8.4-10.2); Carbon Dioxide 23 mmol/L (22-29); Chloride 109 mmol/L (96-108); Estimated Glomerular Filt Rate > 60; Glucose Random 94 mg/dL (60-115); Potassium 4.4 mmol/L (3.3-5.1); Sodium 141 mmol/L (135-145)
== END 2021-04-05 22:10 | disposition home or self-care (01) ==
LOC: HO.MMNH3L 22:09
PROVIDERS: Visit Provider Family Medicine
DX: A41.9 Sepsis, unspecified organism (principal); L89.159 Pressure ulcer of sacral region, unspecified stage
CPT/HCPCS: 36415; 80048; 85027

== ENCOUNTER 2021-04-12 00:58 | Outpatient (REF) | payer OTHER, MEDICAID, SELFPAY ==
[2021-04-12 07:11] LABS: Hematocrit 36.5 % (42.0-52.0); Hemoglobin 11.5 g/dl (14.0-18.0); Mean Corpuscular HGB Conc 31.5 g/dl (31.0-36.0); Mean Corpuscular Hemoglobin 29.3 pg (27.0-33.0); Mean Corpuscular Volume 92.9 fL (80.0-98.0); Mean Platelet Volume 10.3 fL (9.4-12.4); Platelet Count 249 X10*3/uL (160-400); Red Blood Count 3.93 X10*6/uL (4.60-5.80); Red Cell Distribution Width 14.3 % (11.0-16.0); White Blood Count 6.5 X10*3/uL (4.8-10.8)
[2021-04-12 07:28] LABS: Anion Gap 11 (12-20); Blood Urea Nitrogen 18 mg/dL (9-16); Calcium 9.4 mg/dL (8.4-10.2); Carbon Dioxide 28 mmol/L (22-29); Chloride 106 mmol/L (96-108); Estimated Glomerular Filt Rate > 60; Glucose Random 96 mg/dL (60-115); Potassium 4.5 mmol/L (3.3-5.1); Sodium 140 mmol/L (135-145)
[2021-04-12 08:03] LABS: Estimated Average Glucose 123 mg/dL; Hemoglobin A1c % 5.9 %
== END 2021-04-12 00:59 | disposition home or self-care (01) ==
LOC: HO.MMNH3L 00:58
PROVIDERS: Visit Provider Family Medicine
DX: A41.9 Sepsis, unspecified organism (principal); L89.612 Pressure ulcer of right heel, stage 2; L89.159 Pressure ulcer of sacral region, unspecified stage; I69.351 Hemiplegia and hemiparesis following cerebral infarction affecting right dominant side; E11.9 Type 2 diabetes mellitus without complications
CPT/HCPCS: 36415; 80048; 83036; 85027

== ENCOUNTER 2021-04-19 00:23 | Outpatient (REF) | payer OTHER, MEDICAID, SELFPAY ==
[2021-04-19 08:02] LABS: Hematocrit 37.6 % (42.0-52.0); Hemoglobin 12.1 g/dl (14.0-18.0); Mean Corpuscular HGB Conc 32.2 g/dl (31.0-36.0); Mean Corpuscular Hemoglobin 29.7 pg (27.0-33.0); Mean Corpuscular Volume 92.2 fL (80.0-98.0); Mean Platelet Volume 10.5 fL (9.4-12.4); Platelet Count 246 X10*3/uL (160-400); Red Blood Count 4.08 X10*6/uL (4.60-5.80); Red Cell Distribution Width 14.2 % (11.0-16.0); White Blood Count 6.4 X10*3/uL (4.8-10.8)
[2021-04-19 08:14] LABS: Anion Gap 11 (12-20); Blood Urea Nitrogen 14 mg/dL (9-16); Calcium 9.5 mg/dL (8.4-10.2); Carbon Dioxide 28 mmol/L (22-29); Chloride 107 mmol/L (96-108); Estimated Glomerular Filt Rate > 60; Glucose Random 84 mg/dL (60-115); Potassium 5.1 mmol/L (3.3-5.1); Sodium 141 mmol/L (135-145)
== END 2021-04-19 00:24 | disposition home or self-care (01) ==
LOC: HO.MMNH3L 00:23
PROVIDERS: Visit Provider Family Medicine
DX: L89.159 Pressure ulcer of sacral region, unspecified stage (principal); A41.9 Sepsis, unspecified organism
CPT/HCPCS: 36415; 80048; 85027

== ENCOUNTER 2021-04-26 00:19 | Outpatient (REF) | payer OTHER, MEDICAID, SELFPAY ==
[2021-04-26 07:06] LABS: Hematocrit 38.4 % (42.0-52.0); Hemoglobin 12.3 g/dl (14.0-18.0); Mean Corpuscular Hemoglobin 29.6 pg (27.0-33.0); Mean Corpuscular Volume 92.3 fL (80.0-98.0); Mean Platelet Volume 10.5 fL (9.4-12.4); Platelet Count 247 X10*3/uL (160-400); Red Blood Count 4.16 X10*6/uL (4.60-5.80); Red Cell Distribution Width 14.1 % (11.0-16.0)
[2021-04-26 07:19] LABS: Anion Gap 12 (12-20); Blood Urea Nitrogen 16 mg/dL (9-16); Calcium 9.7 mg/dL (8.4-10.2); Carbon Dioxide 26 mmol/L (22-29); Chloride 106 mmol/L (96-108); Estimated Glomerular Filt Rate > 60; Glucose Random 99 mg/dL (60-115); Potassium 5.3 mmol/L (3.3-5.1); Sodium 139 mmol/L (135-145)
== END 2021-04-26 00:20 | disposition home or self-care (01) ==
LOC: HO.MMNH3L 00:19
PROVIDERS: Visit Provider Family Medicine
DX: A41.9 Sepsis, unspecified organism (principal); L89.159 Pressure ulcer of sacral region, unspecified stage
CPT/HCPCS: 36415; 80048; 85027

== ENCOUNTER 2021-05-03 01:30 | Outpatient (REF) | payer OTHER, MEDICAID, SELFPAY ==
[2021-05-03 07:31] LABS: Anion Gap 11 (12-20); Blood Urea Nitrogen 14 mg/dL (9-16); Calcium 9.2 mg/dL (8.4-10.2); Carbon Dioxide 29 mmol/L (22-29); Chloride 106 mmol/L (96-108); Estimated Glomerular Filt Rate > 60; Glucose Random 115 mg/dL (60-115); Potassium 4.7 mmol/L (3.3-5.1); Sodium 141 mmol/L (135-145)
[2021-05-03 09:11] LABS: Hematocrit 33.7 % (42.0-52.0); Hemoglobin 11.1 g/dl (14.0-18.0); Mean Corpuscular HGB Conc 32.9 g/dl (31.0-36.0); Mean Corpuscular Volume 91.1 fL (80.0-98.0); Mean Platelet Volume 10.7 fL (9.4-12.4); Platelet Count 291 X10*3/uL (160-400); Red Cell Distribution Width 13.8 % (11.0-16.0); White Blood Count 8.6 X10*3/uL (4.8-10.8)
== END 2021-05-03 01:31 | disposition home or self-care (01) ==
LOC: HO.MMNH3L 01:30
PROVIDERS: Visit Provider Family Medicine
DX: A41.9 Sepsis, unspecified organism (principal); L89.159 Pressure ulcer of sacral region, unspecified stage
CPT/HCPCS: 36415; 80048; 85027

== ENCOUNTER 2021-05-10 00:52 | Outpatient (REF) | payer OTHER, MEDICAID, SELFPAY ==
[2021-05-10 07:16] LABS: Hemoglobin 11.2 g/dl (14.0-18.0); Mean Corpuscular HGB Conc 32.9 g/dl (31.0-36.0); Mean Corpuscular Volume 91.2 fL (80.0-98.0); Platelet Count 339 X10*3/uL (160-400); Red Blood Count 3.73 X10*6/uL (4.60-5.80); Red Cell Distribution Width 13.6 % (11.0-16.0); White Blood Count 8.1 X10*3/uL (4.8-10.8)
[2021-05-10 07:39] LABS: Anion Gap 11 (12-20); Blood Urea Nitrogen 17 mg/dL (9-16); Calcium 9.5 mg/dL (8.4-10.2); Carbon Dioxide 29 mmol/L (22-29); Chloride 106 mmol/L (96-108); Estimated Glomerular Filt Rate > 60; Glucose Random 103 mg/dL (60-115); Sodium 141 mmol/L (135-145)
== END 2021-05-10 00:53 | disposition home or self-care (01) ==
LOC: HO.MMNH3L 00:52
PROVIDERS: Visit Provider Family Medicine
DX: A41.9 Sepsis, unspecified organism (principal); L89.159 Pressure ulcer of sacral region, unspecified stage
CPT/HCPCS: 36415; 80048; 85027

== ENCOUNTER 2021-05-17 00:22 | Outpatient (REF) | payer OTHER, MEDICARE, MEDICAID, SELFPAY ==
[2021-05-17 07:13] LABS: Hematocrit 31.3 % (42.0-52.0); Hemoglobin 10.2 g/dl (14.0-18.0); Mean Corpuscular HGB Conc 32.6 g/dl (31.0-36.0); Mean Corpuscular Hemoglobin 29.7 pg (27.0-33.0); Mean Platelet Volume 10.2 fL (9.4-12.4); Platelet Count 300 X10*3/uL (160-400); Red Blood Count 3.44 X10*6/uL (4.60-5.80); Red Cell Distribution Width 13.9 % (11.0-16.0)
[2021-05-17 07:52] LABS: Anion Gap 10 (12-20); Blood Urea Nitrogen 23 mg/dL (9-16); Calcium 9.1 mg/dL (8.4-10.2); Carbon Dioxide 26 mmol/L (22-29); Chloride 108 mmol/L (96-108); Estimated Glomerular Filt Rate > 60; Glucose Random 122 mg/dL (60-115); Potassium 4.3 mmol/L (3.3-5.1); Sodium 140 mmol/L (135-145)
== END 2021-05-17 00:23 | disposition home or self-care (01) ==
LOC: HO.MMNH3L 00:22
PROVIDERS: Visit Provider Family Medicine
DX: A41.9 Sepsis, unspecified organism (principal); L89.159 Pressure ulcer of sacral region, unspecified stage
CPT/HCPCS: 36415; 80048; 85027

== ENCOUNTER 2021-05-24 00:51 | Outpatient (REF) | payer OTHER, MEDICARE, MEDICAID, SELFPAY ==
[2021-05-24 07:12] LABS: Hematocrit 33.2 % (42.0-52.0); Hemoglobin 10.9 g/dl (14.0-18.0); Mean Corpuscular HGB Conc 32.8 g/dl (31.0-36.0); Mean Corpuscular Hemoglobin 29.8 pg (27.0-33.0); Mean Corpuscular Volume 90.7 fL (80.0-98.0); Mean Platelet Volume 10.2 fL (9.4-12.4); Platelet Count 271 X10*3/uL (160-400); Red Blood Count 3.66 X10*6/uL (4.60-5.80); Red Cell Distribution Width 13.5 % (11.0-16.0); White Blood Count 7.7 X10*3/uL (4.8-10.8)
[2021-05-24 07:38] LABS: Anion Gap 12 (12-20); Blood Urea Nitrogen 21 mg/dL (9-16); Calcium 9.5 mg/dL (8.4-10.2); Carbon Dioxide 30 mmol/L (22-29); Chloride 104 mmol/L (96-108); Estimated Glomerular Filt Rate > 60; Glucose Random 109 mg/dL (60-115); Potassium 4.7 mmol/L (3.3-5.1); Sodium 141 mmol/L (135-145)
== END 2021-05-24 00:52 | disposition home or self-care (01) ==
LOC: HO.MMNH3L 00:51
PROVIDERS: Visit Provider Family Medicine
DX: L89.159 Pressure ulcer of sacral region, unspecified stage (principal); A41.9 Sepsis, unspecified organism
CPT/HCPCS: 36415; 80048; 85027

== ENCOUNTER 2021-05-31 | Outpatient (REF) | payer OTHER, MEDICARE, MEDICAID, SELFPAY ==
[2021-05-31 07:50] LABS: Hematocrit 37.8 % (42.0-52.0); Hemoglobin 11.8 g/dl (14.0-18.0); Mean Corpuscular HGB Conc 31.2 g/dl (31.0-36.0); Mean Corpuscular Hemoglobin 29.4 pg (27.0-33.0); Mean Corpuscular Volume 94.3 fL (80.0-98.0); Mean Platelet Volume 10.7 fL (9.4-12.4); Platelet Count 345 X10*3/uL (160-400); Red Blood Count 4.01 X10*6/uL (4.60-5.80); Red Cell Distribution Width 13.2 % (11.0-16.0); White Blood Count 9.5 X10*3/uL (4.8-10.8)
[2021-05-31 08:26] LABS: Anion Gap 21 (12-20); Blood Urea Nitrogen 43 mg/dL (9-16); Calcium 9.4 mg/dL (8.4-10.2); Carbon Dioxide 22 mmol/L (22-29); Chloride 109 mmol/L (96-108); Estimated Glomerular Filt Rate > 60; Glucose Random 100 mg/dL (60-115); Potassium 5.1 mmol/L (3.3-5.1); Sodium 147 mmol/L (135-145)
== END 2021-05-31 00:01 | disposition home or self-care (01) ==
LOC: HO.MMNH3L
PROVIDERS: Visit Provider Family Medicine
DX: A41.9 Sepsis, unspecified organism (principal); L89.159 Pressure ulcer of sacral region, unspecified stage
CPT/HCPCS: 36415; 80048; 85027

== ENCOUNTER 2021-06-07 01:05 | Outpatient (REF) | payer OTHER, MEDICARE, MEDICAID, SELFPAY ==
[2021-06-07 06:55] LABS: Hematocrit 34.6 % (42.0-52.0); Hemoglobin 11.6 g/dl (14.0-18.0); Mean Corpuscular HGB Conc 33.5 g/dl (31.0-36.0); Mean Corpuscular Hemoglobin 30.3 pg (27.0-33.0); Mean Corpuscular Volume 90.3 fL (80.0-98.0); Mean Platelet Volume 10.6 fL (9.4-12.4); Platelet Count 376 X10*3/uL (160-400); Red Blood Count 3.83 X10*6/uL (4.60-5.80); Red Cell Distribution Width 12.7 % (11.0-16.0); White Blood Count 9.1 X10*3/uL (4.8-10.8)
[2021-06-07 07:36] LABS: Anion Gap 13 (12-20); Blood Urea Nitrogen 15 mg/dL (9-16); Calcium 9.3 mg/dL (8.4-10.2); Carbon Dioxide 28 mmol/L (22-29); Chloride 100 mmol/L (96-108); Estimated Glomerular Filt Rate > 60; Glucose Random 93 mg/dL (60-115); Potassium 4.8 mmol/L (3.3-5.1); Sodium 136 mmol/L (135-145)
== END 2021-06-07 01:06 | disposition home or self-care (01) ==
LOC: HO.MMNH3L 01:05
PROVIDERS: Visit Provider Family Medicine
DX: A41.9 Sepsis, unspecified organism (principal); L89.159 Pressure ulcer of sacral region, unspecified stage
CPT/HCPCS: 36415; 80048; 85027

== ENCOUNTER 2021-06-14 00:43 | Outpatient (REF) | payer OTHER, MEDICARE, MEDICAID, SELFPAY ==
[2021-06-14 07:54] LABS: Hematocrit 35.3 % (42.0-52.0); Hemoglobin 11.2 g/dl (14.0-18.0); Mean Corpuscular HGB Conc 31.7 g/dl (31.0-36.0); Mean Corpuscular Hemoglobin 28.9 pg (27.0-33.0); Mean Corpuscular Volume 91.2 fL (80.0-98.0); Mean Platelet Volume 10.7 fL (9.4-12.4); Platelet Count 345 X10*3/uL (160-400); Red Blood Count 3.87 X10*6/uL (4.60-5.80); Red Cell Distribution Width 13.7 % (11.0-16.0); White Blood Count 8.2 X10*3/uL (4.8-10.8)
[2021-06-14 08:29] LABS: Anion Gap 11 (12-20); Blood Urea Nitrogen 21 mg/dL (9-16); Calcium 9.4 mg/dL (8.4-10.2); Carbon Dioxide 31 mmol/L (22-29); Chloride 104 mmol/L (96-108); Estimated Glomerular Filt Rate > 60; Glucose Random 95 mg/dL (60-115); Sodium 141 mmol/L (135-145)
== END 2021-06-14 00:44 | disposition home or self-care (01) ==
LOC: HO.MMNH3L 00:43
PROVIDERS: Visit Provider Family Medicine
DX: L89.159 Pressure ulcer of sacral region, unspecified stage (principal); A41.9 Sepsis, unspecified organism
CPT/HCPCS: 36415; 80048; 85027

== ENCOUNTER 2021-06-21 | Outpatient (REF) | payer OTHER, MEDICARE, MEDICAID, SELFPAY ==
[2021-06-21 07:44] LABS: Hematocrit 34.4 % (42.0-52.0); Hemoglobin 11.2 g/dl (14.0-18.0); Mean Corpuscular HGB Conc 32.6 g/dl (31.0-36.0); Mean Corpuscular Hemoglobin 29.6 pg (27.0-33.0); Mean Platelet Volume 10.5 fL (9.4-12.4); Platelet Count 223 X10*3/uL (160-400); Red Blood Count 3.78 X10*6/uL (4.60-5.80); Red Cell Distribution Width 14.3 % (11.0-16.0); White Blood Count 7.7 X10*3/uL (4.8-10.8)
[2021-06-21 08:24] LABS: Anion Gap 14 (12-20); Blood Urea Nitrogen 15 mg/dL (9-16); Calcium 9.2 mg/dL (8.4-10.2); Carbon Dioxide 26 mmol/L (22-29); Chloride 104 mmol/L (96-108); Estimated Glomerular Filt Rate > 60; Glucose Random 102 mg/dL (60-115); Potassium 5.1 mmol/L (3.3-5.1); Sodium 139 mmol/L (135-145)
== END 2021-06-21 00:01 | disposition home or self-care (01) ==
LOC: HO.MMNH3L
PROVIDERS: Visit Provider Family Medicine
DX: A41.9 Sepsis, unspecified organism (principal); L89.159 Pressure ulcer of sacral region, unspecified stage
CPT/HCPCS: 36415; 80048; 85027

== ENCOUNTER 2021-06-28 | Outpatient (REF) | payer OTHER, MEDICARE, MEDICAID, SELFPAY ==
[2021-06-28 07:47] LABS: Hematocrit 35.6 % (42.0-52.0); Hemoglobin 11.1 g/dl (14.0-18.0); Mean Corpuscular HGB Conc 31.2 g/dl (31.0-36.0); Mean Platelet Volume 10.6 fL (9.4-12.4); Platelet Count 240 X10*3/uL (160-400); Red Blood Count 3.83 X10*6/uL (4.60-5.80); White Blood Count 9.5 X10*3/uL (4.8-10.8)
[2021-06-28 08:06] LABS: Anion Gap 12 (12-20); Blood Urea Nitrogen 20 mg/dL (9-16); Calcium 9.5 mg/dL (8.4-10.2); Carbon Dioxide 30 mmol/L (22-29); Chloride 107 mmol/L (96-108); Estimated Glomerular Filt Rate > 60; Glucose Random 81 mg/dL (60-115); Potassium 4.7 mmol/L (3.3-5.1); Sodium 144 mmol/L (135-145)
== END 2021-06-28 00:01 | disposition home or self-care (01) ==
LOC: HO.MMNH3L
PROVIDERS: Visit Provider Family Medicine
DX: A41.9 Sepsis, unspecified organism (principal); L89.159 Pressure ulcer of sacral region, unspecified stage
CPT/HCPCS: 36415; 80048; 85027

== ENCOUNTER 2021-07-05 | Outpatient (REF) | payer OTHER, MEDICARE, MEDICAID, SELFPAY ==
[2021-07-05 07:07] LABS: Hemoglobin 11.8 g/dl (14.0-18.0); Mean Corpuscular HGB Conc 31.9 g/dl (31.0-36.0); Mean Corpuscular Hemoglobin 29.6 pg (27.0-33.0); Mean Corpuscular Volume 92.7 fL (80.0-98.0); Mean Platelet Volume 10.5 fL (9.4-12.4); Platelet Count 246 X10*3/uL (160-400); Red Blood Count 3.99 X10*6/uL (4.60-5.80); Red Cell Distribution Width 14.6 % (11.0-16.0); White Blood Count 6.3 X10*3/uL (4.8-10.8)
[2021-07-05 07:19] LABS: Anion Gap 9 (12-20); Blood Urea Nitrogen 14 mg/dL (9-16); Calcium 9.4 mg/dL (8.4-10.2); Carbon Dioxide 30 mmol/L (22-29); Chloride 104 mmol/L (96-108); Estimated Glomerular Filt Rate > 60; Glucose Random 98 mg/dL (60-115); Potassium 4.8 mmol/L (3.3-5.1); Sodium 138 mmol/L (135-145)
== END 2021-07-05 00:01 | disposition home or self-care (01) ==
LOC: HO.MMNH3L
PROVIDERS: Visit Provider Family Medicine
DX: A41.9 Sepsis, unspecified organism (principal); L89.159 Pressure ulcer of sacral region, unspecified stage
CPT/HCPCS: 36415; 80048; 85027

== ENCOUNTER 2021-07-12 05:41 | Outpatient (REF) | payer OTHER, MEDICARE, MEDICAID, SELFPAY ==
[2021-07-12 07:23] LABS: Hemoglobin 11.9 g/dl (14.0-18.0); Mean Corpuscular HGB Conc 32.2 g/dl (31.0-36.0); Mean Corpuscular Hemoglobin 30.1 pg (27.0-33.0); Mean Corpuscular Volume 93.4 fL (80.0-98.0); Mean Platelet Volume 10.7 fL (9.4-12.4); Platelet Count 243 X10*3/uL (160-400); Red Blood Count 3.96 X10*6/uL (4.60-5.80); Red Cell Distribution Width 14.1 % (11.0-16.0); White Blood Count 5.3 X10*3/uL (4.8-10.8)
[2021-07-12 07:31] LABS: Anion Gap 11 (12-20); Blood Urea Nitrogen 15 mg/dL (9-16); Calcium 9.7 mg/dL (8.4-10.2); Carbon Dioxide 30 mmol/L (22-29); Chloride 106 mmol/L (96-108); Estimated Glomerular Filt Rate > 60; Glucose Random 102 mg/dL (60-115); Potassium 4.7 mmol/L (3.3-5.1); Sodium 142 mmol/L (135-145)
== END 2021-07-12 05:42 | disposition home or self-care (01) ==
LOC: HO.MMNH3L 05:41
PROVIDERS: Visit Provider Family Medicine
DX: A41.9 Sepsis, unspecified organism (principal); L89.159 Pressure ulcer of sacral region, unspecified stage
CPT/HCPCS: 36415; 80048; 85027